=== PATIENT | female | born 1985 | race Caucasian/White ===

== ENCOUNTER 2023-05-28 13:48 | Outpatient (OUT) | payer OTHER, SELFPAY ==
--- NOTE | 2023-05-28 13:51 | US_ITS ---
The [address] [address] Patient Name: VICKY CEJA MRN: [id number] date: 1985 Sex: F Assigned Patient Location: US Current Patient Location: US Accession/Order Number: [id number] Exam Date: 05/28/2023 13:51 Report Date: 05/28/2023 15:54 At the request of: YEYO GARCIA Procedure: US OB transvaginal EXAMINATION: US OB transvaginal HISTORY: MISSED MENSES COMPARISON: No relevant comparison available. FINDINGS: GESTATIONAL SAC: Present and normal appearing. YOLK SAC: Present and normal appearing. POLE: Present and normal appearing. CARDIAC: Present. UTERUS: Normal size and appearance. OVARIES: Right: Normal. Left: Prominent simple appearing cyst, 3.8 cm in diameter. CERVIX: 4.7 cm in length and closed. CUL-DE-SAC: Normal. OTHER: None. AGE BY LMP: 9 weeks 2 days PATY BY LMP: 12/29/2023 AGE BY US CRL: 8 weeks 6 days PATY BY US CRL: 01/01/2024 US/US OB transvaginal IMPRESSION: 1. Single live intrauterine . Electronically authenticated by: FABIEN ANAND Date: 05/28/2023 15:54
== END 2023-05-28 13:49 | disposition home or self-care (01) ==
LOC: US 13:49
PROVIDERS: Visit Provider Obstetrics & Gynecology
DX: Z34.91 Encounter for supervision of normal pregnancy, unspecified, first trimester (principal); N92.6 Irregular menstruation, unspecified
CPT/HCPCS: 76817

== ENCOUNTER 2023-06-22 13:49 | Outpatient (OUT) | payer OTHER, SELFPAY ==
[2023-06-22 14:41] LABS: Estimated Average Glucose 97 mg/dL
[2023-06-22 14:44] LABS: Basophils Percent Auto 0.3 % (0.2-2.0); Eosinophils Absolute Auto 0.2 10^3/uL (0.0-0.7); Eosinophils Percent Auto 1.5 % (0.9-7.0); Hematocrit 35.8 % (36.0-48.0); Hemoglobin 12.6 g/dL (12.0-16.0); Immature Granulocytes Abs Auto 0.02 10^3/uL (0.00-0.03); Immature Granulocytes Pct Auto 0.2 % (0.0-0.5); Lymphocytes Percent Auto 19.4 % (20.5-60.0); Mean Corpuscular HGB Conc 35.2 g/dL (29.9-35.2); Mean Corpuscular Volume 88.2 fL (81.0-99.0); Mean Platelet Volume 11.1 fL (9.5-13.5); Monocytes Absolute Auto 0.7 10^3/uL (0.3-0.8); Monocytes Percent Auto 6.3 % (1.7-12.0); Neutrophils Absolute Auto 7.5 10^3/uL (1.4-6.5); Neutrophils Percent Auto 72.3 % (43.0-75.0); Platelet Count 284 10^3/uL (150-450); Red Blood Count 4.06 10^6/uL (4.20-5.40); Red Cell Distribution Width 13.1 % (11.0-15.0); White Blood Count 10.4 10^3/uL (4.0-11.0)
[2023-06-22 14:54] LABS: Thyroid Stimulating Hormone 0.407 uIU/mL (0.358-3.740)
[2023-06-23 08:10] LABS: HBsAg Screen Negative (Negative); HIV Ab/p24 Ag Screen Non Reactive (Non Reactive); Rubella Antibodies, IgG 3.39 index (Immune >0.99)
[2023-06-23 10:10] LABS: Rapid Plasma Reagin, Quant Non Reactive titer (NonRea<1:1)
[2023-06-23 11:09] LABS: HCV Ab Non Reactive (Non Reactive)
== END 2023-06-22 13:50 | disposition home or self-care (01) ==
LOC: LAB 13:49
PROVIDERS: Visit Provider Obstetrics & Gynecology
DX: N91.2 Amenorrhea, unspecified (principal)
CPT/HCPCS: 36415; 83036; 84443; 85025; 86592; 86762; 86803; 86850; 86900; 86901; 87086; 87340; 87389

== ENCOUNTER 2023-07-27 21:06 | Outpatient (REF) | payer OTHER, SELFPAY ==
[2023-08-01 14:08] LABS: Age Gdln ACOG Testing Note (.); HPV Aptima Negative (Negative); IGP, Aptima HPV, rfx 16/18,45 Note (.)
== END 2023-07-27 21:07 | disposition home or self-care (01) ==
LOC: LAB 21:06
PROVIDERS: Visit Provider Physician Assistant
DX: Z01.419 Encounter for gynecological examination (general) (routine) without abnormal findings (principal)
CPT/HCPCS: 87624; G0145

== ENCOUNTER 2023-08-11 13:30 | Outpatient (OUT) | payer OTHER, SELFPAY ==
--- NOTE | 2023-08-11 13:33 | US_ITS ---
[address] [address] Patient Name: VICKY CEJA MRN: [id number] date: 1985 Sex: F Assigned Patient Location: US Current Patient Location: Accession/Order Number: [id number] Exam Date: 08/11/2023 13:34 Report Date: 08/12/2023 00:38 At the request of: YEYO GARCIA Procedure: US OB anatomy EXAMINATION: US OB anatomy, US OB cervical length HISTORY: ANATOMY COMPARISON: Ultrasound OB transvaginal 05/28/2023 TECHNIQUE: Transabdominal sonographic examination was performed for obstetrical and evaluation. FINDINGS: Number: 1 Heart Rate: Present; not recorded Amniotic Fluid Volume: Subjectively normal Placental Location: POSTERIOR with lower margin 5.4 cm from os. Cervix Length: 4.5 cm, closed. ANATOMY: Normal Structures -cerebellum, choroid plexus, cisterna magna, lateral cerebral ventricles, orbits, midline falx, hard palate, four-chamber heart, RVOT, LVOT, stomach, kidneys, bladder, umbilical cord insertion into abdomen, three-vessel cord, cervical spine, thoracic spine, lumbar spine, sacral spine, right upper extremity, left upper extremity, right lower extremity, left lower extremity. SUBOPTIMALLY SEEN: None ABNORMALITIES: Bilateral choroid plexus cysts, 10 mm and 7 mm respectively. BIOMETRY: BPD: 4.5 cm 19 weeks 4 days HC: 16.9 cm 19 weeks 4 days AC: 15.1 cm 20 weeks 2 days FL: 3.3 cm 20 weeks 3 days EFW:344.3 grams; 63% FL/AC: 22.1 FL/BPD: 74.1 HC/AC: 1.1 GESTATIONAL AGE: Age by EDC: 20 weeks 0 days PATY by EDC: 12/29/2023 Age by current US: 20 weeks 0 days PATY by current US: 12/29/2023 US/US OB anatomy IMPRESSION: 1. Single live intrauterine with growth detailed above. 2. Bilateral choroid plexus cysts, 10 mm and 7 mm. No additional anatomic abnormalities demonstrated. Electronically authenticated by: FABIEN ANAND Date: 08/12/2023 00:38
--- NOTE | 2023-08-11 13:33 | US_ITS ---
[address] [address] Patient Name: VICKY CEJA MRN: [id number] date: 1985 Sex: F Assigned Patient Location: US Current Patient Location: Accession/Order Number: [id number] Exam Date: 08/11/2023 13:34 Report Date: 08/12/2023 00:38 At the request of: YEYO GARCIA Procedure: US OB cervical length EXAMINATION: US OB anatomy, US OB cervical length HISTORY: ANATOMY COMPARISON: Ultrasound OB transvaginal 05/28/2023 TECHNIQUE: Transabdominal sonographic examination was performed for obstetrical and evaluation. FINDINGS: Number: 1 Heart Rate: Present; not recorded Amniotic Fluid Volume: Subjectively normal Placental Location: POSTERIOR with lower margin 5.4 cm from os. Cervix Length: 4.5 cm, closed. ANATOMY: Normal Structures -cerebellum, choroid plexus, cisterna magna, lateral cerebral ventricles, orbits, midline falx, hard palate, four-chamber heart, RVOT, LVOT, stomach, kidneys, bladder, umbilical cord insertion into abdomen, three-vessel cord, cervical spine, thoracic spine, lumbar spine, sacral spine, right upper extremity, left upper extremity, right lower extremity, left lower extremity. SUBOPTIMALLY SEEN: None ABNORMALITIES: Bilateral choroid plexus cysts, 10 mm and 7 mm respectively. BIOMETRY: BPD: 4.5 cm 19 weeks 4 days HC: 16.9 cm 19 weeks 4 days AC: 15.1 cm 20 weeks 2 days FL: 3.3 cm 20 weeks 3 days EFW:344.3 grams; 63% FL/AC: 22.1 FL/BPD: 74.1 HC/AC: 1.1 GESTATIONAL AGE: Age by EDC: 20 weeks 0 days PATY by EDC: 12/29/2023 Age by current US: 20 weeks 0 days PATY by current US: 12/29/2023 US/US OB cervical length IMPRESSION: 1. Single live intrauterine with growth detailed above. 2. Bilateral choroid plexus cysts, 10 mm and 7 mm. No additional anatomic abnormalities demonstrated. Electronically authenticated by: FABIEN ANAND Date: 08/12/2023 00:38
== END 2023-08-11 13:31 | disposition home or self-care (01) ==
LOC: US 13:30
PROVIDERS: Visit Provider Obstetrics & Gynecology
DX: Z36.89 Encounter for other specified antenatal screening (principal); Z3A.20 20 weeks gestation of pregnancy
CPT/HCPCS: 76805; 76817

== ENCOUNTER 2023-09-18 08:16 | Outpatient (OUT) | payer OTHER, SELFPAY ==
--- OUTSIDE RECORDS SUMMARY | 2023-09-18 08:18 | XMS_ITS | CCD ---
Author Name Unknown Address [facility] [address] [place] [address] Organization [facility] Care Team Providers Care Auction Block Clerk Name Role Phone AnnaAnkit Unavailable DR GURVINDER WILLS Primary Care Unavailable DR YEYO GARCIA Attending Unavailable DR YEYO GARCIA Consulting Unavailable DR YEYO GARCIA Admitting Unavailable Fredis Hernandes Attending Unavailab Fredis Hahn Admitting Unavailab Gurvinder Conde Primary Care Unavailable RONI MORAN Attending Unavailable RONI MORAN Attending Unavailable YEYO GARCIA Attending Unavailable Medications Current Medications Medication Drug Class(es) Dates Sig (Normalized) Sig (Original) FLUoxetine 40 mg oral capsule (3 sources) Serotonin Reuptake Inhibitor take 2 capsules by mouth every twenty-four hours FLUoxetine HCl 40 MG 2 capsule Orally Once a day for 90 days Active Hair Skin & Nails Gummies (3 sources) Hair Skin & Nail s Gummies Active QUEtiapine 25 mg oral tablet (2 sources) Atypical Antipsychotic take 1 tablet by mouth every twenty-four hours QUEtiapine Fumarate 25 MG 1 tablet at bedtime Orally Once a day for 90 day(s) Active Vitamin D3 (3 sources) Vitamin D3 Activ e Completed/Discontinued Medications Medication Drug Class(es) Dates Sig (Normalized) Sig (Original) 12 hr buPROPion hydrochloride 100 mg extended release oral tablet (3 sources) Aminoketone take 1 tablet by mouth every twenty-four hours Wellbutrin SR 100 MG 1 tablet in the morning Orally Once a day for 30 days Not-Taking Triamcinolone (2 sources) Corticosteroid Start: 01-09-2021 KENALOG - 10 mg January, 40 mg Problems Problem Classification Problem Date Documented Date Episodic/Chronic Anxiety disorders (3 sources) Obsessive-compulsive disorder; Translations: [Obsessive-compulsive disorder, unspecified] Chronic Immunizations and screening for infectious disease (1 source) Encounter for screening for human papillomavirus (HPV); Translations: [ENC SCREENING HUMAN PAPILLOMAVIRUS] Onset: 05-18-2022 Episodic Mood disorders (3 sources) Severe recurrent major depression without psychotic features; Translations: [Major depressive disorder, recurrent severe without psychotic features] Chronic Other screening for suspected conditions (not mental disorders or infectious disease) (4 sources) Encounter for screening for malignant neoplasm of cervix; Translations: [ENC SCREENING MALIG NEOPLASM CERV] Onset: 05-14-2022 Episodic Results Test Name Value Interpretation Reference Range Facil ity PAP ACOG PANEL 2: 30 to 65on 05-20-2022 . . Normal [facility] Comment on above: Result Comment: Performed at: WB Performed By: #### [id number] #### [facility] [address] [address] [address] Beth Gutierrez Age Gdln ACOG Testing 30-65 [facility] Comment on above: Performed By: #### [id number] #### [facility] [address] [address] [address] Beth Gutierrez DIAGNOSIS: Comment Normal [facility] Comment on above: Result Comment: NEGATIVE FOR INTRAEPITHE LIAL LESION OR MALIGNANCY. Performed at: WB Performed By: #### [id number] #### [facility] [address] [address] [address] Beth Gutierrez HPV Aptima Negative Normal [facility] Comment on above: Result Comment: This nucleic acid amplif ication test detects fourteen high-risk HPV types (16,18,31,33,35,39,45,51,52,56,58,59,66,68) without differentiation. Performed at: =G Performed By: #### [id number] #### [facility] [address] [address] [address] Beth Gutierrez Methodology: Comment [facility] Comment on above: Result Comment: This liquid based ThinPr ep(R) pap test was screened with the use of an image guided system. Performed at: WB Performed By: #### [id number] #### [facility] [address] [address] [address] Beth Gutierrez Note: Comment [facility] Comment on above: Result Comment: The Pap smear is a scree gregory test designed to aid in the detection of premalignant and malignant conditions of the uterine cervix. It is not a diagnostic procedure and should not be used as the sole means of detecting cervical cancer. Both false-positive and false-negative reports do occur. . Performed at: WB Performed By: #### [id number] #### [facility] [address] [address] [address] Beth Gutierrez Performed by: Comment Normal [facility] Comment on above: Result Comment: Charmaine Lomas [employer] nologist (ASCP) Performed at: WB Performed By: #### [id number] #### [facility] [address] [address] [address] Beth Gutierrez Specimen adequacy: Comment Normal [facility] Comment on above: Result Comment: Satisfactory for evaluat ion. No endocervical component is identified. Performed at: WB Performed By: #### [id number] #### [facility] [address] [address] [address] Beth Gutierrez XR Hand Complete Left*on XR Hand Complete Left* HISTORY: Pain x 2 weeks FINDINGS: Bone mineralization is normal for this age. No acute fracture, dislocation or significant arthritic changes are seen. No significant joint space effusion is present. Soft tissues are without abnormal calcifications or radiopaque foreign body. No active erosive changes are identified. IMPRESSION: Minimal arthritis, no erosive changes or fracture. Report reported and signed by Bernard Cheng on 05/20/2022 1222 Normal [facility] [employer] Mechanical [employer] Encounters Encounter Date Encounter Type Care Provider Facility Start: 09-09-2023 End: 09-09-2023 ambulatory RONI MORAN Not Available Start: 08-11-2023 End: 08-11-2023 ambulatory YEYO GARCIA Not Available Start: 07-27-2023 End: 07-27-2023 ambulatory RONI MORAN Not Available Start: 02-27-2023 ambulatory Fredis Graham acility:[facility] Start: 05-14-2022 End: 05-14-[address] GURVINDER WILLS Facility: Start: 04-16-2022 End: 04-16-2022 ambulatory Ankit Anna Other [facility] Other Start: 04-16-2022 Telephone encounter Ankit Anna [facility] Start: 03-05-2022 End: 03-05-2022 ambulatory Ankit Anna Other [facility] Other Start: 03-05-2022 Telephone encounter Ankit Anna [facility] Start: 09-30-2021 End: 09-30-2021 ambulatory Ankit Anna Other [facility] Other Start: 09-30-2021 Telephone encounter Ankit Anna [facility] Payers Date Payer Category Payer Self-pay 1985 Unknown [id number] [id number] [id number] 1985 Unknown [id number] 1985 Unknown [id number] 1985 Unknown [id number] 1957 Private Health Insurance [id number] Unknown [id number] .[id number] Social History Date Type Detail Facility Unknown if ever smoked [facility] Other Sex Assigned At Sex Assigned At Bir th [facility] Other Evaluation note Note Date & Type Note Facility Evaluation note No Information [facility] Other History general Narrative - Reported Note Date & Type Note Facility History general Narrative - Reported Type Medical History Anxiety [facility] Other Summary Purpose Family History No Family History Records FoundNo Family History Records FoundNo Family History Records FoundNo Family History Records Found Advance Directives No Advanced Directives Records FoundNo Advanced Directives Records FoundNo Advanced Directives Records FoundNo Advanced Directives Records Found Additional Source Comments REASON FOR VISIT (unrecogniz ed section and content) same day cancellationreferra l informationupdate INFORMATION SOURCE (unrecogn ized section and content) DATE CREATED AUTHOR 05/20/2022 [facility] DATE CREATED AUTHOR AUTHOR'S ORGANIZ ATION 05/21/2022 [facility]ical Specialist DATE CREATED AUTHOR AUTHOR'S ORGANIZ ATION 09/06/2023 [facility] DATE CREATED AUTHOR AUTHOR'S ORGANIZ ATION 09/10/2023 [facility] d[facility] Specialists [facility] FOR RECORDS PERTAINING TO PATIENTS WHO ARE OR HAVE BEEN ENROLLED IN A CHEMICAL DEPENDENCY/SUBSTANCEABUSE PROGRAM, SOME INFORMATION MAY BE OMITTED. This clinical summary was aggregated from multiple sources. Caution should be exercised in using it in the provision of clinical care. This summary normalizes information from multiple sources, and as a consequence, information in this document may materially change the coding, format and clinical context of patient data. In addition, data may be omitted in some cases. CLINICAL DECISIONS SHOULD BE BASED ON THE PRIMARY CLINICAL RECORDS. [facility] [employer] provides no warranty or guarantee of the accuracy or completeness of information in this document.
[2023-09-18 09:43] LABS: Basophils Percent Auto 0.4 % (0.2-2.0); Eosinophils Absolute Auto 0.2 10^3/uL (0.0-0.7); Eosinophils Percent Auto 1.9 % (0.9-7.0); Hematocrit 33.3 % (36.0-48.0); Hemoglobin 11.1 g/dL (12.0-16.0); Immature Granulocytes Abs Auto 0.04 10^3/uL (0.00-0.03); Immature Granulocytes Pct Auto 0.4 % (0.0-0.5); Lymphocytes Absolute Auto 1.4 10^3/uL (1.2-3.8); Lymphocytes Percent Auto 12.9 % (20.5-60.0); Mean Corpuscular HGB Conc 33.3 g/dL (29.9-35.2); Mean Corpuscular Hemoglobin 29.9 pg (26.7-34.0); Mean Corpuscular Volume 89.8 fL (81.0-99.0); Mean Platelet Volume 11.3 fL (9.5-13.5); Monocytes Absolute Auto 0.6 10^3/uL (0.3-0.8); Monocytes Percent Auto 5.4 % (1.7-12.0); Neutrophils Absolute Auto 8.8 10^3/uL (1.4-6.5); Platelet Count 259 10^3/uL (150-450); Red Blood Count 3.71 10^6/uL (4.20-5.40); Red Cell Distribution Width 13.1 % (11.0-15.0); White Blood Count 11.1 10^3/uL (4.0-11.0)
[2023-09-18 11:28] LABS: Glucose 1 Hour 164 mg/dL
== END 2023-09-18 08:17 | disposition home or self-care (01) ==
PROVIDERS: PCP Family Medicine; Visit Provider Physician Assistant
DX: Z13.1 Encounter for screening for diabetes mellitus (principal)
CPT/HCPCS: 36415; 82950; 85025

== ENCOUNTER 2023-09-23 08:31 | Outpatient (OUT) | payer OTHER, SELFPAY ==
--- OUTSIDE RECORDS SUMMARY | 2023-09-23 08:38 | XMS_ITS | CCD ---
Author Name Unknown Address [facility] [address] [place] [address] Organization [facility] Care Team Providers Care Junior Copywriter Name Role Phone AnnaBritanyAnkit Unavailable DR GURVINDER WILLS Primary Care Unavailable DR YEYO GARCIA Attending Unavailable JOSE, DR ORONA Consulting Unavailable DR YEYO GARCIA Admitting Unavailable [...] 30 to 65on 05-20-2022 . . Normal [facility] Comment on above: Result Comment: Performed at: WB Performed By: #### [id number] #### [facility] [address] [place] [address] Dr. Beth Gutierrez Age Gdln ACOG Testing 30-65 [facility] Comment on above: Performed By: #### [id number] #### [facility] [address] [address] [address] Beth Gutierrez DIAGNOSIS: Comment Normal [facility] Comment on above: Result Comment: NEGATIVE FOR INTRAEPITHE LIAL LESION OR MALIGNANCY. Performed at: WB Performed By: #### [id number] #### [facility] [address] [address] [address] Beth Gutierrez HPV Aptima Negative Normal [facility] Comment on above: Result Comment: This nucleic acid amplif ication test detects fourteen high-risk HPV types (16,18,31,33,35,39,45,51,52,56,58,59,66,68) without differentiation. Performed at: =G Performed By: #### [id number] #### [facility] [address] [address] [address] Beth Gutierrez Methodology: Comment [facility] Comment on above: Result Comment: This liquid based ThinPr ep(R) pap test was screened with the use of an image guided system. Performed at: WB Performed By: #### [id number] #### [facility] [address] [address] [address] Beth Gutierrez Note: Comment Normal [facility] Comment on above: Result Comment: [...] Performed at: WB Performed By: #### [id number] #### [facility] [address] [address] [address] Beth Gutierrez Performed by: Comment Normal [facility] Comment on above: Result Comment: Charmaine Lomas [employer] nologist (ASCP) Performed at: WB Performed By: #### [id number] #### [facility] [address] [address] [address] Beth Gutierrez Specimen adequacy: Comment Normal [facility] Comment on above: Result Comment: Satisfactory for evaluat ion. No endocervical component is identified. Performed at: WB Performed By: #### [id number] #### [facility] [address] [address] [address] Beth Gutierrez XR Hand Complete Left*on [...] by Bernard Cheng on 05/20/2022 1222 Normal [facility] Psychiatric Registered Nurse Encounters Encounter Date Encounter Type Care Provider Facility Start: 09-09-2023 End: 09-09-2023 ambulatory RONI MORAN Not Available Start: 08-11-2023 End: 08-11-2023 ambulatory YEYO GARCIA Not Available Start: 07-27-2023 End: 07-27-2023 ambulatory RONI MORAN Not Available Start: 02-27-2023 ambulatory Fredis Graham acility:[facility] Start: 05-14-2022 End: 05-14-[address] GURVINDER WILLS Facility: Start: 04-16-2022 End: 04-16-2022 ambulatory Ankit Anna Other [facility] Other Start: 04-16-2022 Telephone encounter Ankit Anna [facility] Start: 03-05-2022 End: 03-05-2022 ambulatory Ankit Anna Other [facility] Other Start: 03-05-2022 Telephone encounter Ankit Anna [facility] Start: 09-30-2021 End: 09-30-2021 ambulatory Ankit Anna Other [facility] Other Start: 09-30-2021 Telephone encounter Ankit Anna [facility] Payers Date Payer Category Payer Self-pay 1985 Unknown [id number] [id number] [id number] 1985 Unknown [id number] 1985 Unknown [id number] 1985 Unknown [id number] 1957 Private Health Insurance [id number] Unknown [id number] [id number] Social History Date Type Detail Facility Unknown if ever smoked [facility] Other Sex Assigned At Sex Assigned At Bir th [facility] Other Evaluation note Note Date & Type Note Facility Evaluation note No Information 5 examples Other History general Narrative - Reported Note Date & Type Note Facility History general Narrative - Reported Type Medical History Anxiety [facility] Other Summary Purpose Family History No Family [...] and content) DATE CREATED AUTHOR 05/20/2022 [facility] pital DATE CREATED AUTHOR AUTHOR'S ORGANIZ ATION 05/21/2022 [facility] dical Specialist DATE CREATED AUTHOR AUTHOR'S ORGANIZ ATION 09/06/2023 [facility] DATE CREATED AUTHOR AUTHOR'S ORGANIZ ATION 09/10/2023 [facility] dical Specialists [facility] FOR RECORDS PERTAINING TO PATIENTS WHO ARE [...] BE BASED ON THE PRIMARY CLINICAL RECORDS. [facility] [employer] provides no warranty or guarantee of the accuracy or completeness of information in this document.
[2023-09-23 08:56] LABS: Glucose Fasting 90 mg/dL (74-106)
[2023-09-23 10:41] LABS: Glucose 1 Hour 196 mg/dL
[2023-09-23 10:57] LABS: Glucose 2 Hour 140 mg/dL (<155)
[2023-09-23 12:06] LABS: Glucose 3 Hour 59 mg/dL (<140)
== END 2023-09-23 08:32 | disposition home or self-care (01) ==
LOC: LAB 08:31
PROVIDERS: PCP Family Medicine; Visit Provider Physician Assistant
DX: R73.09 Other abnormal glucose (principal)
CPT/HCPCS: 36415; 82951; 82952

== ENCOUNTER 2023-09-30 10:54 | Outpatient (OUT) | payer OTHER, SELFPAY ==
--- NOTE | 2023-09-30 11:00 | US_ITS ---
The [address] [address] Patient Name: VICKY CEJA MRN: [id number] date: 1985 Sex: F Assigned Patient Location: [facility] Current Patient Location: [facility] Accession/Order Number: [id number] Exam Date: 09/30/2023 11:01 Report Date: 09/30/2023 11:39 At the request of: YEYO GARCIA Procedure: US OB follow up EXAMINATION: US OB follow up HISTORY: FOLLOW UP CHOROID PLEXUS CYSTS COMPARISON: 08/11/2024 FINDINGS: position: Cephalic presentation, longitudinal lie Heart rate: 141 bpm Anatomy: Previously identified choroid plexus cysts are not seen on the current exam. Clinical age: 27 weeks 1 day Clinical PATY: 12/29/2023 US/US OB follow up IMPRESSION: Interval resolution of previously identified choroid plexus cysts Electronically authenticated by: WILLEM ANGUIANO Date: 09/30/2023 11:39
--- OUTSIDE RECORDS SUMMARY | 2023-09-30 11:08 | XMS_ITS | CCD ---
Author Name Unknown Address [facility] [address] [place] [address] Organization [facility] Care Team Providers Care Casket Coverer Name Role Phone AnnaBritanyAnkit Unavailable DR GURVINDER WILLS Primary Care Unavailable JOSE, DR ORONA Attending Unavailable JOSE, DR ORONA Consulting Unavailable JOSE, DR ORONA Admitting Unavailable RONI MORAN Attending Unavailable RONI MORAN Attending Unavailable YEYO GARCIA Attending Unavailable Fredis Hernandes Attending Unavailab Fredis Hahn Admitting Unavailab Gurvinder Conde Primary Care Unavailable Medications Current Medications Medication Drug Class(es) [...] 30 to 65on 05-20-2022 . . Normal [facility] Comment on above: Result Comment: Performed at: WB Performed By: #### [id number] #### [facility] [address] [place] [address] Dr. Beth Gutierrez Age Gdln ACOG Testing 30-65 [facility] Comment on above: Performed By: #### [id number] #### [facility] [address] [address] [address] Beth Gutierrez DIAGNOSIS: Comment Normal [facility] Comment on above: Result Comment: NEGATIVE FOR INTRAEPITHE LIAL LESION OR MALIGNANCY. Performed at: WB Performed By: #### [id number] #### [facility] [address] [address] [address] Beth Gutierrez HPV Aptima Negative Normal [facility] Comment on above: Result Comment: This nucleic acid amplif ication test detects fourteen high-risk HPV types (16,18,31,33,35,39,45,51,52,56,58,59,66,68) without differentiation. Performed at: =G Performed By: #### [id number] #### [facility] [address] [address] [address] Beth Gutierrez Methodology: Comment [facility] Comment on above: Result Comment: This liquid based ThinPr ep(R) pap test was screened with the use of an image guided system. Performed at: WB Performed By: #### [id number] #### [facility] [address] [address] [address] Beth Gutierrez Note: Comment Normal [facility] Comment on above: Result Comment: The Pap smear is a scree gregory test designed to aid in the detection of premalignant and malignant conditions of the uterine cervix. It is not a diagnostic procedure and should not be used as the sole means of detecting cervical cancer. Both false-positive and false-negative reports do occur. . Performed at: WB Performed By: #### [id number] #### [facility] [address] [address] [address] Beth Gutierrez Performed by: Comment Normal [facility] Comment on above: Result Comment: Charmaine Lomas [employer] nologist (ASCP) Performed at: WB Performed By: #### [id number] #### [facility] [address] [address] [address] Beth Gutierrez Specimen adequacy: Comment Normal [facility] Comment on above: Result Comment: Satisfactory for evaluat ion. No endocervical component is identified. Performed at: WB Performed By: #### [id number] #### [facility] [address] [address] [address] Beth Gutierrez XR Hand Complete Left*on [...] by Bernard Cheng on 05/20/2022 1222 Normal [facility] Encounters Encounter Date Encounter Type Care Provider Facility Start: 09-09-2023 End: 09-09-2023 ambulatory RONI MORAN Not Available Start: 08-11-2023 End: 08-11-2023 ambulatory YEYO GARCIA Not Available Start: 07-27-2023 End: 07-27-2023 ambulatory RONI MORAN Not Available Start: 07-06-2023 ambulatory Fredis Graham acility:[facility] Start: 05-14-2022 End: 05-14-[address] GURVINDER WILLS Facility: Start: 04-16-2022 End: 04-16-2022 ambulatory Ankit Anna Other [employer] Other Start: 04-16-2022 Telephone encounter Ankit Anna [facility] Start: 03-05-2022 End: 03-05-2022 ambulatory Ankit Anna Other [employer] Other Start: 03-05-2022 Telephone encounter Ankit Anna [facility] Start: 09-30-2021 End: 09-30-2021 ambulatory Ankit Anna Other [employer] Other Start: 09-30-2021 Telephone encounter Ankit Anna [facility] Payers Date Payer Category Payer Self-pay 1987 Unknown [id number] 2.16.84 [id number] 1987 Unknown [id number] 1987 Unknown [id number] 1987 Unknown [id number] 1959 Private Health Insurance [id number] Unknown [id number] 2.16.8 [id number] Social History Date Type Detail Facility Unknown if ever smoked [employer] Other Sex Assigned At Sex Assigned At Bir th [employer] Other Evaluation note Note Date & Type Note Facility Evaluation note No Information [employer] Other History general Narrative - Reported Note Date & Type Note Facility History general Narrative - Reported Type Medical History Anxiety [employer] Other Summary Purpose Family History No Family [...] and content) DATE CREATED AUTHOR 05/20/2022 [facility] DATE CREATED AUTHOR AUTHOR'S ORGANIZ ATION 05/21/2022 [facility] dical Specialist DATE CREATED AUTHOR AUTHOR'S ORGANIZ ATION 09/10/2023 [facility] EPIC DATE CREATED AUTHOR AUTHOR'S ORGANIZ ATION 09/26/2023 [facility] FOR RECORDS PERTAINING TO PATIENTS WHO ARE [...] BE BASED ON THE PRIMARY CLINICAL RECORDS. [facility]. provides no warranty or guarantee of the accuracy or completeness of information in this document.
== END 2023-09-30 10:55 | disposition home or self-care (01) ==
LOC: NOMS 10:54
PROVIDERS: PCP Family Medicine; Visit Provider Obstetrics & Gynecology
DX: Z36.2 Encounter for other antenatal screening follow-up (principal)
CPT/HCPCS: 76816

== ENCOUNTER 2023-10-10 20:02 | Observation (INO) | payer OTHER, SELFPAY ==
[2023-10-10] VITALS (12 sets, daily range): BP systolic 89–138; BP diastolic 49–72; PULSE 90–111; TEMP 36.7
--- OUTSIDE RECORDS SUMMARY | 2023-10-10 20:05 | XMS_ITS | CCD ---
Author Name Unknown Address [address] [place] [address] [address] [place] [address] Organization [facility] Care Team Providers Care Fryer Operator Name Role Phone AnnaBritanyAnkit Unavailable DR GURVINDER WILLS Primary Care Unavailable DR YEYO GARCIA Attending Unavailable DR YEYO GARCIA Consulting Unavailable DR YEYO GARCIA Admitting Unavailable Fredis Hernandes Attending Unavailab Fredis Hahn Admitting Unavailab Gurvinder Conde Primary Care Unavailable RONI MORAN Attending Unavailable YEYO GARCIA Attending Unavailable RONI MORAN Attending Unavailable YEYO [...] 30 to 65on 05-20-2022 . . Normal [facility] Comment on above: Result Comment: Performed at: WB Performed By: #### [id number] #### [facility] [address] [address] [address] Beth Gutierrez Age Gdln ACOG Testing 30-65 Normal [facility] Comment on above: Performed By: #### [id number] #### [facility] [address] [address] [address] Beth Gutierrez DIAGNOSIS: Comment Normal [facility] Comment on above: Result Comment: NEGATIVE FOR INTRAEPITHE LIAL LESION OR MALIGNANCY. Performed at: WB Performed By: #### [id number] #### [facility] [address] [address] [address] Beth Gutierrez HPV Aptima Negative Normal Negative [facility] Comment on above: Result Comment: This nucleic acid amplif ication test detects fourteen high-risk HPV types (16,18,31,33,35,39,45,51,52,56,58,59,66,68) without differentiation. Performed at: =G Performed By: #### [id number] #### [facility] [address] [address] [address] Beth Gutierrez Methodology: Comment Normal [facility] Comment on above: Result Comment: This liquid based ThinPr ep(R) pap test was screened with the use of an image guided system. Performed at: WB Performed By: #### [id number] #### [facility] [address] [address] [address] Beth Gutierrez Note: Comment Normal [facility] Comment on above: Result Comment: The Pap smear is a scree gregory test designed to aid in the detection of premalignant and malignant conditions of the uterine cervix. It is not a diagnostic procedure and should not be used as the sole means of detecting cervical cancer. Both false-positive and false-negative reports do occur. . Performed at: WB Performed By: #### [id number] #### [facility] [address] [address] [address] Beth Gutierrez Performed by: Comment Normal [facility] Comment on above: Result Comment: Charmaine Lomas [employer] nologist (ASCP) Performed at: WB Performed By: #### [id number] #### [facility] [address] [place] [address] Dr. Beth Gutierrez Specimen adequacy: Comment Normal [facility] Comment on above: Result Comment: Satisfactory for evaluat ion. No endocervical component is identified. Performed at: WB Performed By: #### [id number] #### [facility] [address] [place] [address] Dr. Beth Gutierrez XR Hand Complete Left*on [...] by Bernard Cheng on 05/20/2022 1222 Normal [facility] Encounters Encounter Date Encounter Type Care Provider Facility Start: 10-07-2023 End: 10-07-2023 ambulatory YEYO JOSE Not Available Start: 09-09-2023 End: 09-09-2023 ambulatory RONI MORAN Not Available Start: 08-11-2023 End: 08-11-2023 ambulatory YEYO JOSE Not Available Start: 07-27-2023 End: 07-27-2023 ambulatory RONI MORAN Not Available Start: 07-06-2023 ambulatory Fredis Graham acility:[facility] Start: 05-14-2022 End: 05-14-[address] GURVINDER WILLS Facility:[facility] Start: 04-16-2022 End: 04-16-2022 ambulatory Ankit Anna Other [employer] Other Start: 04-16-2022 Telephone encounter Ankit Anna [facility] Start: 03-05-2022 End: 03-05-2022 ambulatory Ankit Anna Other [employer] Other Start: 03-05-2022 Telephone encounter Ankit Anna [facility] Start: 09-30-2021 End: 09-30-2021 ambulatory Ankit Anna Other [employer] Other Start: 09-30-2021 Telephone encounter Ankit Anna [facility] Payers Date Payer Category Payer Self-pay 1987 Unknown [id number] 2.16.84 [id number] 1985 Unknown [id number] 2.16.84 [id number] 1987 Unknown [id number] [id number] 1987 Unknown [id number] [id number] 1987 Unknown [id number] [id number] [id number] 1959 Private Health Insurance [id number] Unknown [id number] 2.16.8 [id number] Social History Date Type Detail Facility Unknown if ever smoked [employer] Other Sex Assigned At Sex Assigned At Bir th [employer] Other Evaluation note Note Date & Type Note Facility Evaluation note No Information [facility] Other History general Narrative - Reported Note Date & Type Note Facility History general Narrative - Reported Type Medical History Anxiety [facility] [employer] Other Summary Purpose Family History No Family [...] and content) DATE CREATED AUTHOR 05/20/2022 [facility] DATE CREATED AUTHOR AUTHOR'S ORGANIZ ATION 05/21/2022 [facility] dical Specialist DATE CREATED AUTHOR AUTHOR'S ORGANIZ ATION 10/07/2023 [facility] DATE CREATED AUTHOR AUTHOR'S ORGANIZ ATION 10/08/2023 [facility] d[facility] Specialists [facility] FOR RECORDS PERTAINING TO PATIENTS WHO ARE [...] BE BASED ON THE PRIMARY CLINICAL RECORDS. [facility] [employer] [facility]. provides no warranty or guarantee of the accuracy or completeness of information in this document.
[2023-10-10 20:28] LABS: Amnisure POSITIVE (NEGATIVE)
[2023-10-10 20:32] LABS: Bilirubin Urine NEGATIVE (NEGATIVE); Blood Urine MODERATE (NEGATIVE); Clarity Urine CLEAR (CLEAR); Color Urine YELLOW (YELLOW); Glucose Urine UA NEGATIVE (NEGATIVE); Ketones Urine NEGATIVE (NEGATIVE); Leukocyte Esterase Urine NEGATIVE (NEGATIVE); Nitrite Urine NEGATIVE (NEGATIVE); Protein Urine TRACE mg/dL (NEG/TRACE); Specific Gravity Urine >=1.030 (1.005-1.025); Urobilinogen Urine 0.2 EU/dL (0.2-1.0); pH Urine 6.5 (5.0-9.0)
[2023-10-10 20:52] LABS: Urine Microscopic Indicated YES
[2023-10-10 20:57] LABS: Bacteria Urine NONE SEEN #/HPF (NONE SEEN); Cast Seen? NONE SEEN #/LPF (NONE SEEN); Crystals Seen? None Seen #/HPF (None Seen); Mucus Urine TRACE (NONE SEEN); Squamous Epithelial Cell Urine FEW #/LPF (NONE/RARE)
[2023-10-10] MEDS: 0.9 % SODIUM CHLORIDE 1,000 ML 125 ML IV (20:59)
[2023-10-10] MEDS: CLINDAMYCIN PHOSPHATE/D5W 900 MG/50 ML PIGGYBACK 100 MG IV (21:00)
[2023-10-10] MEDS: BETAMETHASONE ACE/BETAMETHASONE SOD PHOS 30 MG/5 ML 12 MG IM (21:00)
[2023-10-10] MEDS: RHO(D) IMMUNE GLOBULIN 1,500 UNIT SYRINGE 1500 UNIT IM (21:01)
[2023-10-10] MEDS: MAGNESIUM SULFATE IN WATER 40 GM/1,000 ML IV.SOLN IV (22:36)
--- NOTE | 2023-10-10 22:51 | PM.DST ---
Transfer Discharge Sum: Prov Provider Date of admission: 10/10/23 20:02 Primary care physician: RADHA WILLS Admitting clinician: Babita Arevalo Discharging clinician: Babita Arevalo Anticipated date of transfer: 10/10/23 (might be after midnight making it 10/11/23) Receiving physician/facility: Dr. Soares [facility] DS: Diagnosis Discharge Diagnosis (1) History of premature rupture of membranes (PPROM): Assessment and plan: GROSSLY RUPTURED MEMBRANES THIS EVENING. CLEAR. NOT SANDY, CAT I TRACING, CERVIX CLOSED Plan TRANSFERRED TO [facility] WITH LEVEL 3 NURSERY Transfer Discharge Sum: Med Medications Active and Home Medications: Active Medications Betamethasone Acet/Betameth SodPhos (Betamethasone Antoni/Betamethasone Sod Phos 30 Mg/5 Ml) 12 mg IM Q24H [facility] Stop: 10/11/23 20:34 Last Admin: 10/10/23 21:00 Dose: 12 mg Full dose Rhogam Calcium Gluconate (Calcium Gluconate 1,000 Mg/10 Ml Vial) 1,000 mg IVP ONCE PRN PRN Reason: Hypomagnesemia Sodium Chloride (Sodium Chloride 0.9% 1,000 Ml) 1,000 mls @ 125 mls/hr IV .Q8H [facility] Last Admin: 10/10/23 20:59 Dose: 125 mls/hr Sodium Chloride (Sodium Chloride 0.9% 1,000 Ml) 1,000 mls @ 75 mls/hr IV .[id number] [facility] Magnesium Sulfate (Magnesium Sulf 40 G/1,000 Ml) 40 gm in 1,000 mls @ 50 mls/hr IV Q13H [facility] Last Admin: 10/10/23 22:36 Dose: 50 mls/hr Azithromycin 250 mg/ Sodium (Chloride) 250 mls @ 250 mls/hr IV ONCE ONE Stop: 10/10/23 22:59 Transfer Discharge Sum: Hosp Hospital Course Hospital course: uncomplicated, not in labor, s/p PPROM clear fluid, CAT I tracing, cervix closed, baby transverse lie head LUQ, vaginal culture for GBS done Status at Discharge Cognitive capacity at transfer: oriented X three, normal affect, normal understanding, Functional capacity at transfer: independent ambulation Overall status at transfer: other (on bedrest with magnesium sulfate running at 2 gram an hour after 6 gram bolus ) Time Spent with Patient Time attestation: Total time spent providing and/or coordinating transfer services: Total time spent: greater than 30 minutes Exam Constitutional: Vital Signs, click to edit/add: Last Vital Signs Temp 98.0 F 10/10/23 20:15 Pulse 90 10/10/23 22:40 BP 110/61 10/10/23 22:40 Documenting provider has reviewed patient's vital signs: yes Common normals: no apparent distress, oriented x3, no limitations, alert and well nourished General appearance: cooperative, comfortable and well kempt Orientation/consciousness: Yes awake, Yes oriented to person, Yes oriented to place and Yes oriented to time HENMT: Common normals: normocephalic and head/scalp atraumatic Eye: Pupil: PERRL and accommodation reflex normal Neck & C-Spine: Common normals: full ROM and supple Respiratory: Common normals: normal respiratory effort Cardio: Common normals: regular rate and regular rhythm GI: Common normals: Normal to inspection, nondistended, normoactive bowel sounds present, soft to palpation and non-tender : Common normals: no CVA tenderness Extremity: Common normals: normal to inspection, full ROM and no calf tenderness Neuro: Common normals: CN's II-XII intact bilaterally, moves all extremities, no focal motor deficits and no sensory deficits noted Psych: Common normals: mental status grossly normal, thought process normal, cooperative and affect normal Discharge Plan Discharge Disposition: [facility] Condition: Serious Assessment: TRANSFERRED TO [facility] WITH LEVEL 3 NURSERY FOR DELIVERY AT 28.5 WEEKS Activity Restrictions/Additional Instructions: bedrest till delivered Aerospace Physiological Technician/Commercial Airline Pilot Instructions: NA Discharge Location: [facility]
[2023-10-10] MEDS: AZITHROMYCIN 250 MG in 0.9 % SODIUM CHLORIDE 250 ML IV (23:10)
[2023-10-11 00:41] VITALS: BP 112/61; PULSE 103
[2023-10-11 01:41] VITALS: BP 109/59; PULSE 92
[2023-10-11 02:41] VITALS: BP 101/57; PULSE 98
== END 2023-10-11 03:20 | disposition short-term general hospital (02) ==
PROVIDERS: Admitting Provider Obstetrics & Gynecology; PCP Family Medicine; Visit Provider Obstetrics & Gynecology
DX: O42.913 Preterm premature rupture of membranes, unspecified as to length of time between rupture and onset of labor, third trimester (principal); Z3A.28 28 weeks gestation of pregnancy
CPT/HCPCS: 51702; 59025; 81001; 84112; 87081; 96365; 96367; 96372; 96376; G0378; G0379; J0456; J0702; J0736; J2790; J3475

== ENCOUNTER 2024-11-30 18:15 | Outpatient (REF) | payer OTHER, SELFPAY ==
--- OUTSIDE RECORDS SUMMARY | 2024-11-30 18:37 | XMS_ITS | CCD ---
Author Organization [facility] Care Team Providers Care Pewter Fabricator Name Role Phone Ankit Castillo Unavailable DR GURVINDER WILLS Primary Care Unavailable ADELAIDE, DR ORONA Attending Unavailable ADELAIDE, DR ORONA Consulting Unavailable ADELAIDE, DR ORONA Admitting Unavailable Fredis Hernandes Attending Unavailab Fredis Hahn Admitting Unavailab Gurvinder Conde Primary Care Unavailable RONI MORAN Attending Unavailable YEYO BRYSON Attending Unavailable RONI MORAN Attending Unavailable YEYO BRYSON Attending Unavailable RONI MORAN Attending Unavailable YEYO BRYSON Attending Unavailable YEYO BRYSON Attending Unavailable Gurvinder Wills MD Primary Care Provider Gurvinder Wills MD Primary Care Provider [phone] Gurvinder Wills MD Primary Care Provider Allergies Allergy Classification Reported Allergen(s) Allergy Type Date of Onset Reaction(s) Facility (17 sources) Amoxicillin Drug Allergy 06-06-2014 Unknown [facility] Work Phone: Medications Current Medications Medication Drug Class(es) Dates Sig (Normalized) Sig (Original) acetaminophen 500 mg oral tablet (17 sources) Start: 11-10-2023 take 2 tablets by mouth every eight hours acetaminophen (Tylenol) 500 MG tablet Take 1,000 mg by mouth every 8 (eight) hours 11/10/2023 Active docusate sodium 100 mg oral capsule (15 sources) Start: 11-10-2023 take 1 capsule by mouth once daily as needed for constipation docusate sodium (COLACE) 100 mg capsule Indications: constipation Take 1 capsule (100 mg total) by mouth daily as needed for constipation Indications: constipation. 60 capsule 11/10/2023 Active FLUoxetine 40 mg oral capsule (4 sources) Serotonin Reuptake Inhibitor Start: 11-07-2024 End: 12-07-2024 take 1 capsule by mouth once daily FLUoxetine (PROzac) 40 MG capsule Indications: Mood changes Take 1 capsule (40 mg) by mouth Daily 30 capsule 3 11/07/2024 12/07/2024 Active take 2 capsules by m outh every twenty-four hours FLUoxetine HCl 40 MG 2 capsule Orally Once a day for 90 days Active Hair Skin & Nails Gummies (3 sources) Hair Skin & Nail s Gummies Active ibuprofen 800 mg oral tablet (17 sources) Nonsteroidal Anti-inflammatory Drug Start: 11-10-19 take 1 tablet by mouth every eight hours ibuprofen 800 MG tablet Take 800 mg by mouth every 8 (eight) hours 11/10/2023 Active oxyCODONE hydrochloride 5 mg oral tablet (4 sources) Opioid Agonist Start: 11-10-19 End: 11-15-19 take 1 tablet by mouth every six hours as needed for pain oxyCODONE (ROXICODONE) 5 mg immediate release tablet Indications: Postoperative pain Take 1 tablet (5 mg total) by mouth every 6 (six) hours as needed for pain for up to 5 days. Max Daily Amount: 20 mg 20 tablet 0 11/10/2023 11/15/2023 Active MV-Min-Fe Fum-FA-DHA ( 1 PO) (2 sources) MV-Min- Fe Fum-FA-DHA ( 1 PO) Take by mouth. Active QUEtiapine 25 mg oral tablet (2 [...] - 10 mg January, 40 mg Problems Active Problems Problem Classification Problem Date Documented Date [...] SCREENING MALIG NEOPLASM CERV] Onset: 05-14-2022 Episodic Past or Other Problems Problem Classification Problem Date Documented Da te Episodic/Chronic Contraceptive and procreative management (1 source) Sterilization requested; Translations: [Encounter for sterilization] 05-10-2024 Episodic Results Test Name Value Interpretation Reference Range Facil ity PAP ACOG PANEL 2: 30 to 65on 05-20-2022 . . Normal [facility] Comment on above: Result Comment: Performed at: WB Performed By: #### [id number] #### [facility] [address] [address] [address] Beth Gutierrez Age Gdln ACOG Testing 30-65 Normal [facility] Comment on above: Performed By: #### [id number] #### [facility] [address] [address] [address] Beth Gutierrez DIAGNOSIS: Comment Normal [facility] Comment on above: Result Comment: NEGATIVE FOR INTRAEPITHE LIAL LESION OR MALIGNANCY. Performed at: WB Performed By: #### [id number] #### [facility] [address] [address] [address] Beth Gutierrez HPV Aptima Negative Normal Negative [facility] Comment on above: Result Comment: This nucleic acid amplif ication test detects fourteen high-risk HPV types (16,18,31,33,35,39,45,51,52,56,58,59,66,68) without differentiation. Performed at: =G Performed By: #### [id number] #### [facility] [address] [address] [address] Beth Gutierrez Methodology: Comment Normal [facility] Comment on above: Result Comment: This liquid based ThinPr ep(R) pap test was screened with the use of an image guided system. Performed at: WB Performed By: #### [id number] #### [facility] [address] [place] [address] Dr. Beth Gutierrez Note: Comment Normal [facility] Comment on above: Result Comment: [...] Performed at: WB Performed By: #### [id number] #### [facility] [address] [place] [address] Dr. Beth Gutierrez Performed by: Comment Normal [facility] Comment on above: Result Comment: Charmaine Lomas [employer] nologist (ASCP) Performed at: WB Performed By: #### [id number] #### [facility] [address] [place] [address] Dr. Beth Gutierrez Specimen adequacy: Comment Normal [facility] Comment on above: Result Comment: Satisfactory for evaluat ion. No endocervical component is identified. Performed at: WB Performed By: #### [id number] #### [facility] [address] [place] [address] Dr. Beth Gutierrez XR Hand Complete Left*on [...] by Bernard Cheng on 05/20/2022 1222 Normal [facility] [employer]ender Vital Signs Date Time Vital Sign Value Performing Clinician Faci lity 05-10-2024 11:34-0400 Body mass index (BMI) [Ratio] 27.62 kg/m2 [employer] Work Phone: [facility] 05-10-2024 11:34-0400 Body weight 75.3 kg Yeyo Adelaide DO Work Phone: [facility] 05-10-2024 11:34-0400 Diastolic blood pressure 72 mm[Hg] Yeyo Adelaide DO Work Phone: [facility] 05-10-2024 11:34-0400 Systolic blood pressure 118 mm[Hg] Yeyo Adelaide DO Work Phone: [facility] Encounters Encounter Date Encounter Type Care Provider Facility Start: 11-30-2024 End: 11-30-2024 Bamboo flowsheet Yeyo Adelaide DO Work Phone: [facility] Start: 11-30-2024 End: 11-30-2024 Bamboo flowsheet Yeyo Adelaide DO Work Phone: [facility] Start: 05-10-2024 End: 05-10-2024 Office outpatient visit 10 minutes Yeyo Adelaide DO Work Phone: [facility] Comment on above: Pre-op examination; Request for sterilization Start: 05-10-2024 End: 05-10-2024 Preprocedural examination done Yeyo Adelaide DO Work Phone: [facility] Start: 05-10-2024 End: 05-10-2024 ambulatory YEYO ADELAIDE Not Available Start: 01-25-2024 ambulatory Fredis Graham acility:[facility] Start: 12-28-2023 End: 12-28-2023 ambulatory RNOI MORAN Not Available Start: 12-22-2023 End: 12-22-2023 Encounter Gurvinder Wills MD Work Phone: [facility] 3E NICU Start: 12-21-2023 End: 12-21-2023 Encounter Gurvinder Wills MD Work Phone: [facility] 3E NICU Start: 12-18-2023 End: 12-18-2023 Encounter Gurvinder Wills MD Work Phone: [address] Start: 12-15-2023 End: 12-15-2023 Encounter Gurvinder Wills MD Work Phone: [address] Start: 12-08-2023 Encounter Gurvinder hills MD Work Phone: [address] Start: 12-05-2023 Encounter Gurvinder hills MD Work Phone: [address] Start: 12-01-2023 Encounter Gurvinder hills MD Work Phone: [address] Start: 11-28-2023 Encounter Gurvinder hills MD Work Phone: [address] Start: 11-27-2023 Encounter Gurvinder hills MD Work Phone: [address] Start: 11-23-2023 End: 11-23-2023 ambulatory YEYO ADELAIDE Not Available Start: 11-21-2023 Encounter Gurvinder hills MD Work Phone: [address] Start: 11-17-2023 Encounter Gurvinder hills MD Work Phone: [facility] 3W NICU Start: 11-14-2023 Encounter Gurvinder hills MD Work Phone: [facility] 3W NICU Start: 11-13-2023 Encounter Gurvinder hills MD Work Phone: [facility] 3W NICU Start: 11-12-2023 Encounter Gurvinder hills MD Work Phone: [facility] 3W NICU Start: 11-10-2023 Encounter Gurvinder hills MD Work Phone: [facility] 3W NICU Start: 10-07-2023 End: 10-07-2023 ambulatory YEYO BRYSON Not Available Start: 09-09-2023 End: 09-09-2023 ambulatory RONI MORAN Not Available Start: 08-11-2023 End: 08-11-2023 ambulatory YEYO BRYSON Not Available Start: 07-27-2023 End: 07-27-2023 ambulatory RONI MORAN Not Available Start: 05-14-2022 End: 05-14-[address] GURVINDER WILLS Facility: Start: 04-16-2022 End: 04-16-2022 ambulatory Ankit Anna Other [facility] Other Start: 04-16-2022 Telephone encounter Ankit Anna [facility] Start: 03-05-2022 End: 03-05-2022 ambulatory Ankit Anna Other [facility] Other Start: 03-05-2022 Telephone encounter Ankit Anna [facility] Start: 09-30-2021 End: 09-30-2021 ambulatory Ankit Anna Other [facility] Other Start: 09-30-2021 Telephone encounter Ankit Anna [facility] Procedures Date Procedure Procedure Detail Performing Clinician Start: 07-27-2023 Microscopic observat ion [Identifier] in Cervix by Cyto stain Gurvinder Wills MD Work Phone: Plan of Treatment Date Care Activity Detail Author Start: 10-20-2033 DTaP,Tdap and Td Vaccines (2 - Td or Tdap) DTaP,Tdap and Td Vaccines (2 - Td or Tdap) [facility] Start: 07-27-2028 Screening for malign ant neoplasm of cervix [facility] Start: 07-27-2026 Screening for malign ant neoplasm of cervix Pap Smear [facility] Start: 11-30-2024 End: 11-30-2024 Patient encounter procedure 11/30/2024 1:20 PM EDT Office Visit [facility] [address] [place] [id number] Yeyo Bryson, DO [address] [place] [address] Arrived [facility] Comment on above: Arrived Start: 11-06-2024 Tobacco Screening Tobacco Screening [facility] Start: 10-11-2024 Adult BMI Screening Adult BMI Screen ing [facility] Start: 08-17-2024 End: 08-17-2024 Patient encounter procedure 08/17/2024 11:00 AM EST Office Visit [facility] [address] [place] [id number] Yeyo Bryson, DO [address] [facility] [address] [place], [place] [id number] [facility] Start: 05-08-2024 Influenza vaccination [facility] Start: 05-08-2023 Influenza vaccination Influenza Vacc ine [facility] Start: 2005 Adult BMI Follow Up Plan Adult BMI Follow Up Plan [facility] Start: 1999 Depression Screening Depression Scre ening [facility] Immunizations Immunization Date Immunization Notes Care Provider Fa cility 10-20-2023 tetanus toxoid, redu flor diphtheria toxoid, and acellular pertussis vaccine, adsorbed Gurvinder Wills MD Work Phone: [facility] Payers Date Payer Category Payer Self-pay 2015 Managed Care HMO (unspecified) [employer] [id number] 2015-Present [address] [place] [address] HMO [id number] 2015 Private Health Insurance [id number] 1987 Unknown [id number] 1987 Unknown [id number] 1987 Unknown [id number] 1987 Unknown [id number] 1987 Unknown [id number] .9 1987 Unknown [id number] .9 1987 Unknown [id number] .9 1987 Unknown [id number] 1959 Private Health Insurance [id number] Unknown [id number] Social History Date Type Detail Facility Unknown if ever smoked [facility] Other Start: 07-24-2023 End: 05-10-2024 Sex Assigned At [facility] Start: 05-30-2023 End: 10-11-2023 Tobacco smoking status [facility] Never smoked tobacco [facility] Start: 05-10-2024 Alcoholic beverage intake Current drinker of alcohol (finding) [facility] Start: 07-24-2023 End: 05-10-2024 History of Social function [facility] How often to you hav e a drink containing alcohol? Monthly or less [facility] How many standard drinks containing alcohol do you have on a typical day? 1 or 2 [facility] How often do you hav e 6 or more drinks on 1 occasion? Less than monthly [facility] Start: 05-30-2023 Education [facility] Start: 05-30-2023 Alcohol Comment Alcohol: 1 or 2 drinks on a typical day/monthly or less Caffeine: 1-2 cups/day [facility] Start: 1985 Sex assigned at Not on file P [facility] Start: 10-11-2023 Tobacco use and exposure Smokeless tobacco non-user [facility] Start: 11-09-2023 Alcohol intake Lifetime non-d blaire (finding) [facility] Childcare Unknown [facility] Clinical Notes 11-10-2023 to 05-10-2024 Nereyda Millan - 05/10/2024 11:10 AM EDTLactation Note - Desiree Ocampo RN - 12/22/2023 1:27 PM EDTLactation Note - Desiree Ocampo RN - 12/22/2023 1:27 PM EDT Note Date & Type Note Facility 05-10-2024 History of Present illness Narrative Reason for Appointment: Patient ID: Carol Bennett is a 38 y.o. female who presents for Pre-op Visit Patient presents today for Pre Op appointment. Patient is scheduled to undergo Da Bony assisted Bilateral Laparoscopic Salpingectomy on 06/03/[address] Bryson at [facility]. MEDICATIONS Current Outpatient Medications Medication Instructions acetaminophen (TYLENOL) 1,000 mg, Oral, Every 8 hours ibuprofen 800 mg, Oral, Every 8 hours MV-Min-Fe Fum-FA-DHA ( 1 PO) Oral ALLERGIES Allergies Allergen Reactions Amoxicillin Unknown PROBLEMS Active Ambulatory Problems Diagnosis Date Noted No Active Ambulatory Problems Resolved Ambulatory Problems Diagnosis Date Noted No Resolved Ambulatory Problems Past Medical History: Diagnosis Date POLLO positive Anxiety Chronic fatigue Current moderate episode of major depressive disorder without prior episode (HCC) (CMS/HCC) Depression (CMS/HCC) Disorder of initiating and maintaining sleep ESS (euthyroid sick syndrome) History of psychiatric hospitalization Mixed obsessional thoughts and acts (CMS/HCC) Moderate episode of recurrent major depressive disorder (HCC) (CMS/HCC) OCD (obsessive compulsive disorder) (CMS/HCC) PMDD (premenstrual dysphoric disorder) ([facility]/HCC) PTSD (post-traumatic stress disorder) (CMS/HCC) RLS (restless legs syndrome) Seasonal affective disorder (CMS/HCC) Severe episode of recurrent major depressive disorder, with psychotic features (HCC) (CMS/[facility]) HISTORY PAST MEDICAL HISTORY SOCIAL HISTORY Past Medical History: Diagnosis Date POLLO positive Anxiety Chronic fatigue Current moderate episode of major depressive disorder without prior episode (HCC) (CMS/HCC) Depression ([facility]/HCC) Disorder of initiating and maintaining sleep ESS (euthyroid sick syndrome) History of psychiatric hospitalization [facility] mental [facility] (02/2021), [facility] mental [facility] (09/2018) Mixed obsessional thoughts and acts (CMS/HCC) Moderate episode of recurrent major depressive disorder (HCC) ([facility]/HCC) OCD (obsessive compulsive disorder) (CMS/HCC) PMDD (premenstrual dysphoric disorder) (CMS/HCC) PTSD (post-traumatic stress disorder) (CMS/HCC) RLS (restless legs syndrome) Seasonal affective disorder ([facility]/HCC) Severe episode of recurrent major depressive disorder, with psychotic features (HCC) ([facility]) Social History Tobacco Use Smoking status: Never Smokeless tobacco: Not on file Substance Use Topics Alcohol use: Yes Comment: Alcohol: 1 or 2 drinks on a typical day/monthly or less Caffeine: 1-2 cups/day Drug use: Never FAMILY HISTORY Family History Problem Relation Name Age of Onset Mental illness Mother No Known Problems Brother 2 brothers, healthy Mental illness Maternal Grandmother severe depression Mental illness Paternal Grandmother depression/anxiety No Known Problems Daughter No Known Problems Daughter SURGICAL HISTORY Past Surgical History: Procedure Laterality Date SECTION, LOW TRANSVERSE 11/07/2023 REVIEW OF SYSTEMS Review of Systems: Review of Systems Constitutional: Negative. HENT: Negative. Eyes: Negative. Respiratory: Negative. Cardiovascular: Negative. Gastrointestinal: Negative. Genitourinary: Negative. Musculoskeletal: Negative. Skin: Negative. Neurological: Negative. All other systems reviewed and are negative. Hematological: Negative. Endocrine: Negative. Allergic/Immunologic: Negative. OBJECTIVE Objective: Physical Exam Constitutional: Appearance: Normal appearance. She is well-developed. Cardiovascular: Rate and Rhythm: Normal rate and regular rhythm. Pulmonary: Effort: Pulmonary effort is normal. Breath sounds: Normal breath sounds. Abdominal: General: Bowel sounds are normal. There is no distension. Palpations: Abdomen is soft. Tenderness: There is no abdominal tenderness. There is no guarding or rebound. Musculoskeletal: General: No swelling. Normal range of motion. Right lower leg: No edema. Left lower leg: No edema. Neurological: Mental Status: She is alert and oriented to person, place, and time. Skin: General: Skin is warm and dry. Psychiatric: Mood and Affect: Mood normal. Behavior: Behavior normal. Vitals and nursing note reviewed. Exam conducted with a finnish rubber present. Vitals: Estimated body mass index is 29.12 kg/m as calculated from the following: Height as of 09/10/21: 5' 5 . Weight as of 12/28/23: 175 lb. BP: No LMP recorded. ASSESSMENT & PLAN ICD-10-CM 1. Pre-op examination Z01.818 2. Request for sterilization Z30.2 Pre Op: Patient is doing well but has desire for sterilization. I have discussed conservative management vs. surgical management with the patient in detail and patient desires surgical management at this time. Patient has voiced understanding that a Bilateral Salpingectomy is considered to be permanent and patient will undergo Da Bony assisted Bilateral Laparoscopic Salpingectomy on . Surgical consents were signed, mmc was reviewed, and patient is to proceed to [facility] OR. Pt has had depression in the past- has taken prozac in the past. - pt denies suicidal and homicidal ideations. Pt will call when she desires. Follow Up: Patient is to follow up between 1-2 weeks post op to assess proper healing and recovery from procedure. Documented by Myra Kamara LPN on behalf of: nora Hayes documented in this encounter [facility] 12-22-2023 Miscellaneous Notes This note was copied from a baby's chart. Met with mother at 's bedside. States that pumping continues to go well with stable supply and no pain or discomfort. Upon further discussion, mom unsure how much she should be attempting while in NICU. Per mom, seems to take bottles better and she doesn't want to do too much to wear him out. Her hope is that once he is home she can put him to breast as well as give bottles while continuing to pump. Talked with mom about offering breast when she is here in the afternoons maybe one or two times a day. Limiting breast attempts can help maintain infant stamina while continuing to provide practice at breast. Once she's home and baby continues to grow, she can gradually add in more sessions. No further questions or concerns, encouraged to call out for any other assistance. [facility] Obstetrics Note This note was copied from a baby's chart. Met with mother at infant's bedside. States that pumping continues to go well with stable supply and no pain or discomfort. Upon further discussion, mom unsure how much she should be attempting while in NICU. Per mom, seems to take bottles better and she doesn't want to do too much to wear him out. Her hope is that once he is home she can put him to breast as well as give bottles while continuing to pump. Talked with mom about offering breast when she is here in the afternoons maybe one or two times a day. Limiting breast attempts can help maintain infant stamina while continuing to provide practice at breast. Once she's home and baby continues to grow, she can gradually add in more sessions. No further questions or concerns, encouraged to call out for any other assistance. [facility]23 Miscellaneous Notes This note was copied from a baby's chart. Met with mother at infants bedside. States pumping is going well and supply is stable. No complaints of pain or discomfort. has reflux and speech has recommend upright feeding. Recommend upright positioning for . Per mother is latching well and transfers well at breast without reflux symptoms while eating. Encouraged to have LC evaluate feed and recommend test weight. Test Weight Test weights are used to determine how much the baby ate during a session. It involves the use of a sensitive scale, within 2 g or less, and digital readout. Weight gain in grams is approximately equal to the intake of milk in milliliters. This can help with maternal self-confidence, stress levels and progress of the dyad with . It can also be used to determine the need for supplementation. Test weights should not be routine care for infants in the NICU and should be done in conjunction with a automobile sales consultant. Plan: Offer breast each feed when cues for 5-10 minutes. Infant Feeding Cues: -hands in mouth -smacking lips -rooting -eyes open If after 5-10 minutes has latched allow to continue until satisfied and follow IDF feeding protocol. Educated on how to supplement after infant goes to breast. Supplementation is based on infants direct time and quality score. Mothers milk supply must also be taken into account. This is per RN discretion. Algorithm Quality Score 1-5, Direct time 0-5 minutes: Gavage all Quality score 1-3, Direct time 6-10 minutes: Gavage 2/3 Quality Score 1-3, Direct time 11-15 minutes: Gavage 1/3 Quality Score 1-3, Direct time 16 minutes or more: No Gavage. If after 5-10 minutes does not latch but infant continues to show feeding cues, offer bottle. If after 5-10 minutes infant does not latch but does not show the feeding cues for a bottle, start gavage fed and allow infant to have continued access to breast. Questions answered, encouragement given. documented in this encounter [facility] 12-21-2023 Obstetrics Note This note was copied from a baby's chart. Met with mother at infants bedside. States pumping is going well and supply is stable. No complaints of pain or discomfort. Infant has reflux and speech has recommend upright feeding. Recommend upright positioning for . Per mother is latching well and transfers well at breast without reflux symptoms while eating. Encouraged to have LC evaluate feed and recommend test weight. Test Weight Test weights are used to determine how much the baby ate during a session. It involves the use of a sensitive scale, within 2 g or less, and digital readout. Weight gain in grams is approximately equal to the intake of milk in milliliters. This can help with maternal self-confidence, stress levels and progress of the dyad with . It can also be used to determine the need for supplementation. Test weights should not be routine care for infants in the NICU and should be done in conjunction with a automobile sales consultant. Plan: Offer breast each feed when infant cues for 5-10 minutes. Infant Feeding Cues: -hands in mouth -smacking lips -rooting -eyes open If after 5-10 minutes has latched allow to continue until satisfied and follow IDF feeding protocol. Educated on how to supplement after infant goes to breast. Supplementation is based on infants direct time and quality score. Mothers milk supply must also be taken into account. This is per RN discretion. Algorithm Quality Score 1-5, Direct time 0-5 minutes: Gavage all Quality score 1-3, Direct time 6-10 minutes: Gavage 2/3 Quality Score 1-3, Direct time 11-15 minutes: Gavage 1/3 Quality Score 1-3, Direct time 16 minutes or more: No Gavage. If after 5-10 minutes does not latch but infant continues to show feeding cues, offer bottle. If after 5-10 minutes infant does not latch but does not show the feeding cues for a bottle, start gavage fed and allow infant to have continued access to breast. Questions answered, encouragement given. [facility] 12-18-2023 Miscellaneous Notes This note was copied from a baby's chart. Met with mother at bedside. States pumping is going well and no pain noted with pumping. Mother has been latching and he is doing well at breast however he gets frustrated waiting for the letdown. Discussed pumping for a minute or two and then latching until he gets used to going to breast fully. Questions answered and support given. documented in this encounter [facility] 12-18-2023 Obstetrics Note This note was copied from a baby's chart. Met with mother at bedside. States pumping is going well and no pain noted with pumping. Mother has been latching infant and he is doing well at breast however he gets frustrated waiting for the letdown. Discussed pumping for a minute or two and then latching until he gets used to going to breast fully. Questions answered and support given. [facility] 04-09-2024 Miscellaneous Notes This note was copied from a baby's chart. Met with mother at infants bedside. States pumping is going well and supply is stable. Mother is able to get about 6-8oz 6 times/day. No complaints of pain or discomfort with pumping. Per mother infant has been latching well. Discussed what a good feed looks and sounds like. Signs of a good feeding Hearing swallowing at least every third suck once the milk comes-in. Seeing milk in the baby s mouth Consistent sucking with only brief pauses The breasts are softer after feedings Feeling strong, deep, pulling , sucking, no sharp pain Leaking from the other breast or feeling of a let-down reflex or noticing a change in the baby s sucking rhythm from faster to slower Your baby latches-on easily with minimal attempts and stays latched-on. Plan: Offer breast each feed when cues for 5-10 minutes. Infant Feeding Cues: -hands in mouth -smacking lips -rooting -eyes open If after 5-10 minutes has latched allow to continue until satisfied and follow IDF feeding protocol. Educated on how to supplement after goes to breast. Supplementation is based on infants direct time and quality score. Mothers milk supply must also be taken into account. This is per RN discretion. Algorithm Quality Score 1-5, Direct time 0-5 minutes: Gavage all Quality score 1-3, Direct time 6-10 minutes: Gavage 2/3 Quality Score 1-3, Direct time 11-15 minutes: Gavage 1/3 Quality Score 1-3, Direct time 16 minutes or more: No Gavage. If after 5-10 minutes infant does not latch but continues to show feeding cues, offer bottle. If after 5-10 minutes does not latch but does not show the feeding cues for a bottle, start gavage fed and allow infant to have continued access to breast. Questions answered, encouragement given. documented in this encounter [facility] 12-15-2023 Obstetrics Note This note was copied from a baby's chart. Met with mother at infants bedside. States pumping is going well and supply is stable. Mother is able to get about 6-8oz 6 times/day. No complaints of pain or discomfort with pumping. Per mother has been latching well. Discussed what a good feed looks and sounds like. Signs of a good feeding Hearing swallowing at least every third suck once the milk comes-in. Seeing milk in the baby s mouth Consistent sucking with only brief pauses The breasts are softer after feedings Feeling strong, deep, pulling , sucking, no sharp pain Leaking from the other breast or feeling of a let-down reflex or noticing a change in the baby s sucking rhythm from faster to slower Your baby latches-on easily with minimal attempts and stays latched-on. Plan: Offer breast each feed when cues for 5-10 minutes. Infant Feeding Cues: -hands in mouth -smacking lips -rooting -eyes open If after 5-10 minutes has latched allow to continue until satisfied and follow IDF feeding protocol. Educated on how to supplement after goes to breast. Supplementation is based on infants direct time and quality score. Mothers milk supply must also be taken into account. This is per RN discretion. Algorithm Quality Score 1-5, Direct time 0-5 minutes: Gavage all Quality score 1-3, Direct time 6-10 minutes: Gavage 2/3 Quality Score 1-3, Direct time 11-15 minutes: Gavage 1/3 Quality Score 1-3, Direct time 16 minutes or more: No Gavage. If after 5-10 minutes does not latch but continues to show feeding cues, offer bottle. If after 5-10 minutes infant does not latch but does not show the feeding cues for a bottle, start gavage fed and allow infant to have continued access to breast. Questions answered, encouragement given. [employer] 12-08-2023 Miscellaneous Notes This note was copied from a baby's chart. Met with father at bedside. He states pumping is going well for mom and she is getting good amounts. Encouraged to have her call and talk to a LC if she has any questions or concerns at [phone] documented in this encounter [facility] 12-08-2023 Obstetrics Note This note was copied from a baby's chart. Met with father at bedside. He states pumping is going well for mom and she is getting good amounts. Encouraged to have her call and talk to a LC if she has any questions or concerns at [phone] [facility] 12-05-2023 Miscellaneous Notes This note was copied from a baby's chart. Met with mother at infants bedside. States pumping is going well and supply is stable. Mother has increased sensitivity in breasts and has noticed some plugged ducts. Discussed flange size and recommend to decrease to 25 mm if not smaller, will call out for LC to evaluate flange fit when ready. Discussed silicone inserts. Flange Fit A flange fits correctly when: your nipple is centered in the tube no parts of your nipple rub against the sides little or no areola is pulled in when the pump is turned on On the other hand, a flange is not fitting properly when: you experience nipple pain during or after the pumping session you notice your nipple is becoming discolored, chapped, or otherwise injured In addition to breast and nipple pain, using the wrong sized pump flange can negatively impact the amount of milk you are able to get out of your breast. A flange that fits too tightly will cause the breast to be constricted in ways that can lead to clogged/blogged milk ducts. (When ducts are clogged, they don t release milk and new milk isn t formed as quickly.) On the other hand, a flange that fits too loosely won t provide adequate suction. This can also lead to milk being left in the breast and lower milk production in the future. Pain and infection can develop from this as well. For plug ducts, Milk flows through a system of microscopic-sized tubes--ducts--in your breasts, which are easily compressed. When more milk is produced than your baby drinks (for example, if you re pumping in addition to ), this can produce pressure which your body responds to as a threat. Inflammatory cells and fluids laguerre into the area to help repair the damage and fight off bacteria. The swelling that occurs from this inflammation presses on some of the ducts, which slows or blocks the milk from flowing well. The skin in this area may appear darker, redder, or pinker than usual. In darker skin, redness may not be as easily detected or may not be visible at all. It may feel warm to the touch. If this inflammation is not treated, the area can become more inflamed or infected. This can occur any time your breasts become overly full, Possible factors include: You and your baby are for longer stretches than usual between feedings Your baby starts sleeping longer at night Your baby is teething, has a stuffy nose, or is otherwise feeling out of sorts and nursing less. Plugged Duct Treatment: Consider yourself sick, and rest! Focus on caring for yourself, your breast, and your baby. Apply cold or ice packs to the affected area. Be aware that antibiotics may not be recommended right away. This is not an infection when it starts. Taking unnecessary antibiotics may encourage resistant strains of bacteria to thrive, and may make you more likely to have recurrent mastitis or an abscess in the future. Make sure you are emptying your breasts regularly. Avoid excessive pumping. Pumping more than your baby needs may create too much milk, also known as hyperlactation. Check to see that your baby or child is well-positioned and has a good latch or attachment. This helps the baby to take more of your milk. If you wear a bra, make sure it is well-fitting, supportive, and not tight. Avoid clothing or straps that are tight on the breast, chest, and underarm area. Questions answered, encouragement given. documented in this encounter [employer] 12-05-2023 Obstetrics Note This note was copied from a baby's chart. Met with mother at infants bedside. States pumping is going well and supply is stable. Mother has increased sensitivity in breasts and has noticed some plugged ducts. Discussed flange size and recommend to decrease to 25 mm if not smaller, will call out for LC to evaluate flange fit when ready. Discussed silicone inserts. Flange Fit A flange fits correctly when: your nipple is centered in the tube no parts of your nipple rub against the sides little or no areola is pulled in when the pump is turned on On the other hand, a flange is not fitting properly when: you experience nipple pain during or after the pumping session you notice your nipple is becoming discolored, chapped, or otherwise injured In addition to breast and nipple pain, using the wrong sized pump flange can negatively impact the amount of milk you are able to get out of your breast. A flange that fits too tightly will cause the breast to be constricted in ways that can lead to clogged/blogged milk ducts. (When ducts are clogged, they don t release milk and new milk isn t formed as quickly.) On the other hand, a flange that fits too loosely won t provide adequate suction. This can also lead to milk being left in the breast and lower milk production in the future. Pain and infection can develop from this as well. For plug ducts, Milk flows through a system of microscopic-sized tubes--ducts--in your breasts, which are easily compressed. When more milk is produced than your baby drinks (for example, if you re pumping in addition to ), this can produce pressure which your body responds to as a threat. Inflammatory cells and fluids laguerre into the area to help repair the damage and fight off bacteria. The swelling that occurs from this inflammation presses on some of the ducts, which slows or blocks the milk from flowing well. The skin in this area may appear darker, redder, or pinker than usual. In darker skin, redness may not be as easily detected or may not be visible at all. It may feel warm to the touch. If this inflammation is not treated, the area can become more inflamed or infected. This can occur any time your breasts become overly full, Possible factors include: You and your baby are for longer stretches than usual between feedings Your baby starts sleeping longer at night Your baby is teething, has a stuffy nose, or is otherwise feeling out of sorts and nursing less. Plugged Duct Treatment: Consider yourself sick, and rest! Focus on caring for yourself, your breast, and your baby. Apply cold or ice packs to the affected area. Be aware that antibiotics may not be recommended right away. This is not an infection when it starts. Taking unnecessary antibiotics may encourage resistant strains of bacteria to thrive, and may make you more likely to have recurrent mastitis or an abscess in the future. Make sure you are emptying your breasts regularly. Avoid excessive pumping. Pumping more than your baby needs may create too much milk, also known as hyperlactation. Check to see that your baby or child is well-positioned and has a good latch or attachment. This helps the baby to take more of your milk. If you wear a bra, make sure it is well-fitting, supportive, and not tight. Avoid clothing or straps that are tight on the breast, chest, and underarm area. Questions answered, encouragement given. [facility] 12-01-2023 Miscellaneous Notes This note was copied from a baby's chart. Met with mother at infant's bedside. States that pumping continues to go well with stable supply and no pain or discomfort. No current questions or concerns, encouraged to call out for any other assistance. documented in this encounter [facility] 12-01-2023 Obstetrics Note This note was copied from a baby's chart. Met with mother at 's bedside. States that pumping continues to go well with stable supply and no pain or discomfort. No current questions or concerns, encouraged to call out for any other assistance. [facility] 11-28-2023 Miscellaneous Notes This note was copied from a baby's chart. Met with mom at 's bedside. States that pumping continues to go well, she has stable supply and denies pain or discomfort. No questions or concerns, encouraged to call out for any other assistance. documented in this encounter [facility] 11-28-2023 Obstetrics Note This note was copied from a baby's chart. Met with mom at 's bedside. States that pumping continues to go well, she has stable supply and denies pain or discomfort. No questions or concerns, encouraged to call out for any other assistance. [facility] 11-27-2023 Miscellaneous Notes This note was copied from a baby's chart. Met with mom at 's bedside. States that pumping is going well, she has a stable supply and continues pumping every three to four hours. Questions answered about let down, mom does feel some tingling and discomfort at the beginning of pumping, which she then says goes away after a couple of minutes and denies any further pain. This sensation could be her body's let down reflex to begin larger milk flow while pumping. No further questions or concerns, encouraged to reach out for any other assistance. Let Down The milk let-down, or milk-ejection reflex, is when a nursing mother s milk is being actively released from the cells that produce and store the milk. These cells are called alveoli, and when they constrict and release the milk to flow into the ducts that will deliver milk to the nipple, milk let-down is said to have occurred. Many women can sense when their milk is letting down. They may feel a tingling sensation in the breast or see milk leaking from the opposite breast. However, not all women sense a let-down, and it is important to know that that can be normal, too! documented in this encounter [facility] 11-27-2023 Obstetrics Note This note was copied from a baby's chart. Met with mom at infant's bedside. States that pumping is going well, she has a stable supply and continues pumping every three to four hours. Questions answered about let down, mom does feel some tingling and discomfort at the beginning of pumping, which she then says goes away after a couple of minutes and denies any further pain. This sensation could be her body's let down reflex to begin larger milk flow while pumping. No further questions or concerns, encouraged to reach out for any other assistance. Let Down The milk let-down, or milk-ejection reflex, is when a nursing mother s milk is being actively released from the cells that produce and store the milk. These cells are called alveoli, and when they constrict and release the milk to flow into the ducts that will deliver milk to the nipple, milk let-down is said to have occurred. Many women can sense when their milk is letting down. They may feel a tingling sensation in the breast or see milk leaking from the opposite breast. However, not all women sense a let-down, and it is important to know that that can be normal, too! [email or web address] Notes This note was copied from a baby's chart. Met with mom at 's bedside. States that pumping is going well with stable supply and denies pain or discomfort. She has been using a rental pump through the [facility] [employer] and is working with her insurance to see if she can get a different pump that she will be more comfortable with. No further questions or concerns, encouraged to call out for any other assistance. documented in this encounter [facility] 11-21-2023 Obstetrics Note This note was copied from a baby's chart. Met with mom at infant's bedside. States that pumping is going well with stable supply and denies pain or discomfort. She has been using a rental pump through the [facility] [employer] and is working with her insurance to see if she can get a different pump that she will be more comfortable with. No further questions or concerns, encouraged to call out for any other assistance. [facility] 11-17-2023 Miscellaneous Notes This note was copied from a baby's chart. Met with mother at infant's bedside. States pumping is going well without any pain or discomfort. States 28 mm flange feels better and blisters have improved. She is getting about 170 ml every three hours. Denies any questions or concerns at this time. Encouraged to call out with any assistance. Support given. documented in this encounter [facility] 11-17-2023 Obstetrics Note This note was copied from a baby's chart. Met with mother at 's bedside. States pumping is going well without any pain or discomfort. States 28 mm flange feels better and blisters have improved. She is getting about 170 ml every three hours. Denies any questions or concerns at this time. Encouraged to call out with any assistance. Support given. [facility] 11-14-2023 Miscellaneous Notes This note was copied from a baby's chart. Met with mother at infant's bedside. Stated she will be staying at [facility] and had concerns she would not have access to a pump as her rental pump is at her home one hour away. Discussed how [facility] should provide her with a hospital grade breast pump to her room upon request. Encouraged to reach out to if she has any issues and we can provide a pump. Questions answered and support given. documented in this encounter [facility] 11-14-2023 Obstetrics Note This note was copied from a baby's chart. Met with mother at 's bedside. Stated she will be staying at [facility] and had concerns she would not have access to a pump as her rental pump is at her home one hour away. Discussed how [facility] should provide her with a hospital grade breast pump to her room upon request. Encouraged to reach out to if she has any issues and we can provide a pump. Questions answered and support given. [facility] Miscellaneous Notes This note was copied from a baby's chart. Met with mother at infant's bedside. States that she continues pumping and has noticed steadily increasing supply. Questions about flange fit, she is unsure if her nipples are rubbing against that sides. She feels like as she pumps, nipple swell and becomes tight into the flange tubing. Experiences some discomfort at the beginning of pumping before it evens out and becomes comfortable. Offered to come and measure nipples for flange sizing, will call out when ready. Encouraged to call out for any other assistance. documented in this encounter [facility] 11-13-2023 Obstetrics Note This note was copied from a baby's chart. Met with mother at infant's bedside. States that she continues pumping and has noticed steadily increasing supply. Questions about flange fit, she is unsure if her nipples are rubbing against that sides. She feels like as she pumps, nipple swell and becomes tight into the flange tubing. Experiences some discomfort at the beginning of pumping before it evens out and becomes comfortable. Offered to come and measure nipples for flange sizing, will call out when ready. Encouraged to call out for any other assistance. [facility]12-[facility]23 Miscellaneous Notes This note was copied from a baby's chart. Met with mom at infant's bedside. States that pumping is going well, she has continued to pump every three hours and her supply has doubled. She has begun using 30mm flange size and states this is a much more comfortable fit. No further questions or concerns, encouraged to call out for any other assistance. documented in this encounter [employer] 11-12-2023 Obstetrics Note This note was copied from a baby's chart. Met with mom at 's bedside. States that pumping is going well, she has continued to pump every three hours and her supply has doubled. She has begun using 30mm flange size and states this is a much more comfortable fit. No further questions or concerns, encouraged to call out for any other assistance. [employer] 11-10-2023 Miscellaneous Notes This note was copied from a baby's chart. Met with mother at infants bedside. States pumping is going well and supply is increasing. Mother is getting 60-70mls every 2-3 hours. Reinforced pumping guidelines and importance of pumping how infant eats. Encouraged pumping every 2-3 hours for 15-20 minutes at suction level that is comfortable. Mom will only produce the amount of breastmilk that her baby demands. It is true that hormones drive the production of very early breastmilk, called colostrum. However, in order to keep producing breastmilk, your baby needs to keep sucking from the breast. The overall level of milk production varies based on the babys amount of sucking and how much milk is actually removed. Mother has a crack on nipple. Discussed flange size. Larger flanges given. Flange Fit A flange fits correctly when: your nipple is centered in the tube no parts of your nipple rub against the sides little or no areola is pulled in when the pump is turned on On the other hand, a flange is not fitting properly when: you experience nipple pain during or after the pumping session you notice your nipple is becoming discolored, chapped, or otherwise injured In addition to breast and nipple pain, using the wrong sized pump flange can negatively impact the amount of milk you are able to get out of your breast. A flange that fits too tightly will cause the breast to be constricted in ways that can lead to clogged/blogged milk ducts. (When ducts are clogged, they don t release milk and new milk isn t formed as quickly.) On the other hand, a flange that fits too loosely won t provide adequate suction. This can also lead to milk being left in the breast and lower milk production in the future. Pain and infection can develop from this as well. Mother has home pump and rental. Questions answered, encouragement given. documented in this encounter [facility] 11-10-2023 Obstetrics Note This note was copied from a baby's chart. Met with mother at infants bedside. States pumping is going well and supply is increasing. Mother is getting 60-70mls every 2-3 hours. Reinforced pumping guidelines and importance of pumping how infant eats. Encouraged pumping every 2-3 hours for 15-20 minutes at suction level that is comfortable. Mom will only produce the amount of breastmilk that her baby demands. It is true that hormones drive the production of very early breastmilk, called colostrum. However, in order to keep producing breastmilk, your baby needs to keep sucking from the breast. The overall level of milk production varies based on the babys amount of sucking and how much milk is actually removed. Mother has a crack on nipple. Discussed flange size. Larger flanges given. Flange Fit A flange fits correctly when: your nipple is centered in the tube no parts of your nipple rub against the sides little or no areola is pulled in when the pump is turned on On the other hand, a flange is not fitting properly when: you experience nipple pain during or after the pumping session you notice your nipple is becoming discolored, chapped, or otherwise injured In addition to breast and nipple pain, using the wrong sized pump flange can negatively impact the amount of milk you are able to get out of your breast. A flange that fits too tightly will cause the breast to be constricted in ways that can lead to clogged/blogged milk ducts. (When ducts are clogged, they don t release milk and new milk isn t formed as quickly.) On the other hand, a flange that fits too loosely won t provide adequate suction. This can also lead to milk being left in the breast and lower milk production in the future. Pain and infection can develop from this as well. Mother has home pump and rental. Questions answered, encouragement given. [employer] Evaluation note No Information [facility] [employer] Other Evaluation note Diagnosis Pre-op examination Request for sterilization documented in this encounter [facility] Narrative - Reported* Type Description Date Medical History Anxiety [facility] [employer] Other InstructionsNot on filedocumented in this encounter [employer] SystemInstructionsNot on filedocumented in this encounter [employer] Summary Purpose Family History No Family History Records FoundNo Family History Records FoundNo Family History Records FoundNo Family History Records Found Advance Directives Latest Code Status on File Code Status Date Activated Date Inactivated Comments Full Code 10/11/2023 6:04 AM 11/10/2023 5:01 PM Date Activated Date Inactivated Comments 10/11/2023 6:04 AM 11/10/2023 5:01 PM Additional Source Comments REASON FOR VISIT (unrecogniz ed section and content) Reason Comments Pre-op Visit INFORMATION SOURCE (unrecogn ized section and content) DATE CREATED AUTHOR 05/20/2022 [facility] DATE CREATED AUTHOR AUTHOR'S ORGANIZ ATION 05/21/2022 [facility] DATE CREATED AUTHOR AUTHOR'S ORGANIZ ATION 02/10/2024 [facility] DATE CREATED AUTHOR AUTHOR'S ORGANIZ ATION 05/11/2024 [facility]ists EPIC Care Teams (unrecognized sec tion and content) [employer] Relationship Specialty Start Date End Date Gurvinder Wills MD [address] [place] [address] PCP - General Family Medicine 01/13/23 [employer] Relationship Specialty Start Date End Date Gurvinder Wills MD [address] [place] [address] PCP - General Family Medicine 10/12/23 [employer] Relationship Specialty Start Date End Date Gurvinder Wills MD [address] [place] [address] PCP - General Family Medicine 10/12/23 [employer] Relationship Specialty Start Date End Date Gurvinder Wills MD [address] [place] [id number] PCP - General Family Medicine 01/13/23 FOR RECORDS PERTAINING TO PATIENTS WHO ARE [...] BE BASED ON THE PRIMARY CLINICAL RECORDS. [employer] provides no warranty or guarantee of the accuracy or completeness of information in this document.
== END 2024-11-30 18:16 | disposition home or self-care (01) ==
LOC: LAB 18:15
PROVIDERS: PCP Family Medicine; Visit Provider Physician Assistant
DX: Z01.419 Encounter for gynecological examination (general) (routine) without abnormal findings (principal)
CPT/HCPCS: 87624; 88175

== ENCOUNTER 2024-12-12 09:59 | Outpatient (OUT) | payer OTHER, SELFPAY ==
--- OUTSIDE RECORDS SUMMARY | 2024-12-12 10:27 | XMS_ITS | CCD ---
Author Organization [facility] Care Team Providers Care Assembly Instructions Writer Name Role Phone Ankit Castillo Unavailable DR GURVINDER WILLS Primary Care Unavailable ADELAIDE, DR ORONA Attending Unavailable ADELAIDE, DR ORONA Consulting Unavailable DR YEYO BRYSON Admitting Unavailable Fredis Hernandes Attending UnavailFredis Mora Admitting Unavailab Gurvinder Conde Primary Care Unavailable Gurvinder Wills MD Primary Care Provider Gurvinder Wills MD Primary Care Provider [phone] Gurvinder Wills MD Primary Care Provider YEYO BRYSON Attending Unavailable NICOLE MORAN Attending Unavailable YEYO BRYSON Attending Unavailable Allergies Allergy Classification Reported Allergen(s) Allergy Type Date of Onset Reaction(s) Facility (20 sources) Amoxicillin Drug Allergy 06-06-2014 Unknown [facility] Work Phone: Medications Current Medications Medication Drug Class(es) Dates Sig (Normalized) Sig (Original) docusate sodium 100 mg oral capsule (15 sources) Start: 11-10-2023 take 1 capsule by mouth once daily as needed for constipation docusate sodium (COLACE) 100 mg capsule Indications: constipation Take 1 capsule (100 mg total) by mouth daily as needed for constipation Indications: constipation. 60 capsule 11/10/2023 Active FLUoxetine 40 mg oral capsule (7 sources) Serotonin Reuptake Inhibitor Start: 11-07-2024 End: [...] Hair Skin & Nail s Gummies Active oxyCODONE hydrochloride 5 mg oral tablet [...] 11/15/2023 Active MV-Min-Fe Fum-FA-DHA ( 1 PO) (5 sources) MV-Min- Fe Fum-FA-DHA ( 1 PO) [...] Sig (Original) acetaminophen 500 mg oral tablet (19 sources) Start: 11-10-2023 End: 11-30-2024 take 2 tablets by mouth every eight hours acetaminophen (Tylenol) 500 MG tablet Take 1,000 mg by mouth every 8 (eight) hours 11/10/2023 11/30/2024 Discontinued 12 hr buPROPion hydrochloride 100 mg extended release oral tablet (3 sources) Aminoketone take 1 tablet by mouth every twenty-four hours Wellbutrin SR 100 MG 1 tablet in the morning Orally Once a day for 30 days Not-Taking ibuprofen 800 mg oral tablet (19 sources) Nonsteroidal Anti-inflammatory Drug Start: 11-10-2023 End: 11-30-2024 take 1 tablet by mouth every eight hours ibuprofen 800 MG tablet Take 800 mg by mouth every 8 (eight) hours 11/10/2023 11/30/2024 Discontinued Triamcinolone (2 sources) Corticosteroid Start: 01-09-2021 KENALOG - 10 mg January, 40 mg Problems Problem Classification Problem Date Documented Date Episodic/Chronic Anxiety disorders (3 sources) Obsessive-compulsive disorder; Translations: [Obsessive-compulsive disorder, unspecified] Chronic Contraceptive and procreative management (3 sources) Sterilization requested; Translations: [Encounter for sterilization] 05-10-2024 Episodic Immunizations and screening for infectious disease (1 source) Encounter for screening for human papillomavirus (HPV); Translations: [ENC SCREENING HUMAN PAPILLOMAVIRUS] Onset: 05-18-2022 Episodic Mood disorders (3 sources) Severe recurrent major depression without psychotic features; Translations: [Major depressive disorder, recurrent severe without psychotic features] Chronic Other screening for suspected conditions (not mental disorders or infectious disease) (6 sources) Encounter for screening for malignant neoplasm of cervix; Translations: [Patient encounter status] Onset: 05-14-2022 Episodic Residual codes; unclassified (2 sources) Family history of malignant neoplasm of breast in first degree relative; Translations: [Family history of malignant neoplasm of breast] 11-30-2024 Episodic Results Test Name Value Interpretation Reference Range Facility IGP,APTIMA HPV,AGE GDLNon AGE GDLN ACOG TESTING Note . [facility] Comment on above: TESTS RESULT FLAG UN ITS REF RANGE LAB Clinician Provided Cytology Information Source.............Cervix;Endocervix No. of containers..01 ThinPrep Vial Age Algo ACOG Janae... 32 FLAG LEGEND: L-Low Normal,H-High Normal,LL-Alert Low,HH-Alert High <-Panic Low,>-Panic High,A-Abnormal,AA-Critical Abnormal Performed at: 01 =G [address] [place] [address] Calli Rodirguez MD, HPV APTIMA Negative Negative [facility] Comment on above: This nucleic acid am plification test detects fourteen high- risk HPV types (16,18,31,33,35,39,45,51,52,56,58,59,66,68) without differentiation. Performed at: =G - [facility], [place] [id number] Petrographer: Calli Rodriguez MD, Phone: [phone] Performed at: - [facility], [place] [id number] Petrographer: Calli Rodriguez MD, Phone: [phone] IGP, APTIMA HPV, RFX 16/18,45 Note . [facility] Comment on above: TESTS RESULT FLAG UN ITS REF RANGE LAB DIAGNOSIS: 02 NEGATIVE FOR INTRAEPITHELIAL LESION OR MALIGNANCY. THIS SPECIMEN WAS RESCREENED PART OF OUR GROUNDS CLEANER PROGRAM. Specimen adequacy: 02 Satisfactory for evaluation. Endocervical and/or squamous metaplastic cells (endocervical component) are present. Performed by: 02 Debora Rush, Crop Duster Helper (ASCP) QC reviewed by: Jerica Monteiro Crop Duster Helper (ASCP) . 02 Note: Note 02 The Pap smear is a screening test designed to aid in the detection of premalignant and malignant conditions of the uterine cervix. It is not a diagnostic procedure and should not be used as the sole means of detecting cervical cancer. Both false-positive and false-negative reports do occur. Test Methodology: Note 02 This liquid based ThinPrep(R) pap test was screened with the use of an image guided system. HPV Genotype Reflex Note 02 Criteria not met, HPV Genotype not performed. FLAG LEGEND: L-Low Normal,H-High Normal,LL-Alert Low,HH-Alert High <-Panic Low,>-Panic High,A-Abnormal,AA-Critical Abnormal Performed at: 02 WB [facility] [address] [place] [address] Calli Rodriguez MD, BRUSH-SPATULA CERVIX ENDOCERVIX [facility] ( test) Ql (U)o n 11-30-2024 Interpretation and review of laboratory results Normal [facility] Preg Test, Ur Negative Negative [facility] care [facility] PAP ACOG PANEL 2: 30 to 65on 05-20-2022 . . Normal [facility] Comment on above: Result Comment: Perf ormed at: WB Performed By: #### [id number] #### [facility] [address] [place] [address] Dr. Beth Gutierrez Age Gdln ACOG Testing 30-65 Normal [facility] Comment on above: Performed By: #### [id number] #### [facility] [address] [address] [address] Beth Gutierrez DIAGNOSIS: Comment Normal [facility] Comment on above: Result Comment: NEGA TIVE FOR INTRAEPITHELIAL LESION OR MALIGNANCY. Performed at: WB Performed By: #### [id number] #### [facility] [address] [address] [address] Beth Gutierrez HPV Aptima Negative Normal Negative [facility] Comment on above: Result Comment: This nucleic acid amplification test detects fourteen high-risk HPV types (16,18,31,33,35,39,45,51,52,56,58,59,66,68) without differentiation. Performed at: =G Performed By: #### [id number] #### [facility] [address] [place] [address] Dr. Beth Gutierrez Methodology: Comment Normal [facility] Comment on above: Result Comment: This liquid based ThinPrep(R) pap test was screened with the use of an image guided system. Performed at: WB Performed By: #### [id number] #### [facility] [address] [place] [address] Dr. Beth Gutierrez Note: Comment Normal [facility] Comment on above: Result Comment: The Pap smear is a screening test designed to aid in the detection of premalignant and malignant conditions of the uterine cervix. It is not a diagnostic procedure and should not be used as the sole means of detecting cervical cancer. Both false-positive and false-negative reports do occur. . Performed at: WB Performed By: #### [id number] #### [facility] [address] [place] [address] Dr. Bteh Gutierrez Performed by: Comment Normal [facility] Comment on above: Result Comment: Mimi Lomas, Crop Duster Helper (ASCP) Performed at: WB Performed By: #### 4 [id number] #### [facility] [address] [place] [address] Dr. Beth Gutierrez Specimen adequacy: Comment Normal [facility] Comment on above: Result Comment: Sati sfactory for evaluation. No endocervical component is identified. Performed at: WB Performed By: #### 4 [id number] #### [facility] [address] [place] [address] Dr. Beth Gutierrez XR Hand Complete Left*on [...] by Bernard Cheng on 05/20/2022 1222 Normal [facility] Tap Dancer Vital Signs Date Time Vital Sign Value Performing Clinician Faci lity 11-30-2024 13:29-0400 Body mass index (BMI) [Ratio] 27.79 kg/m2 Yeyo Adelaide DO Work Phone: [facility] 11-30-2024 13:29-0400 Body weight 75.75 kg Yeyo Adelaide DO Work Phone: [facility] 11-30-2024 13:29-0400 Diastolic blood pressure 76 mm[Hg] Yeyo Adelaide DO Work Phone: [facility] 11-30-2024 13:29-0400 Systolic blood pressure 110 mm[Hg] Yeyo Adelaide DO Work Phone: [facility] 05-10-2024 11:34-0400 Body mass index (BMI) [Ratio] 27.62 kg/m2 Yeyo Adelaide DO Work Phone: [facility] 05-10-2024 11:34-0400 Body weight 75.3 kg Yeyo Adelaide DO Work Phone: [facility] 05-10-2024 11:34-0400 Diastolic blood pressure 72 mm[Hg] Yeyo Adelaide DO Work Phone: [facility] 05-10-2024 11:34-0400 Systolic blood pressure 118 mm[Hg] Yeyo Adelaide DO Work Phone: [facility] Encounters Encounter Date Encounter Type Care Provider Facility Start: 11-30-2024 End: 11-30-2024 Bamboo flowsheet Yeyo Adelaide DO Work Phone: [facility] Start: 11-30-2024 End: 12-06-2024 Bamboo flowsheet Yeyo Adelaide DO Work Phone: [facility] Start: 11-30-2024 End: 12-06-2024 [facility] Result Encounter Generic External Data Provider [facility] External Department Unsolicited Start: 11-30-2024 End: 11-30-2024 Patient encounter procedure Yeyo Adelaide DO Work Phone: [facility] Start: 11-30-2024 End: 11-30-2024 Periodic preventive med est patient 18-39 yrs Yeyo Adelaide DO Work Phone: [facility] Comment on above: Well woman exam with routine gynecological exam; Pre-op examination; Request for sterilization; Family history of breast cancer in mother; Encounter for screening mammogram for malignant neoplasm of breast Start: 11-30-2024 End: 11-30-2024 Preprocedural examination done Yeyo Adelaide DO Work Phone: [facility] Start: 11-30-2024 End: 11-30-2024 ambulatory YEYO ADELAIDE Not Available Start: 05-10-2024 End: 05-10-2024 Office outpatient visit 10 minutes Yeyo Adelaide DO Work Phone: [facility] Comment on above: Pre-op examination; Request for sterilization Start: 05-10-2024 End: 05-10-2024 Preprocedural examination done Yeyo Adelaide DO Work Phone: [facility] Start: 05-10-2024 End: 05-10-2024 ambulatory YEYO ADELAIDE Not Available Start: 01-25-2024 ambulatory Fredis Graham acility:[facility] Start: 12-28-2023 End: 12-28-2023 ambulatory NICOLE MORAN Not Available Start: 12-22-2023 End: 12-22-2023 Encounter Gurvinder Wills MD Work Phone: [address] NICU Start: 12-21-2023 End: 12-21-2023 Encounter Gurvinder Wills MD Work Phone: [address] NICU Start: 12-18-2023 End: 12-18-2023 Encounter Gurvinder Wills MD Work Phone: [address] NICU Start: 12-15-2023 End: 12-15-2023 Encounter Gurvinder Wills MD Work Phone: [address] NICU Start: 12-08-2023 Encounter Gurvinder leosr MD Work Phone: [facility] Start: 12-05-2023 Encounter Gurvinder hills MD Work Phone: [facility] Start: 12-01-2023 Encounter Gurvinder Hem reinier MURILLO Work Phone: [facility] Start: 11-28-2023 Encounter Gurvinder Hem reinier MURILLO Work Phone: [address] NICU Start: 11-27-2023 Encounter Gurvinder hills MD Work Phone: [facility] Start: 11-21-2023 Encounter Gurvinder Hem reinier MURILLO Work Phone: [facility] Start: 11-17-2023 Encounter Gurvinder Hem reinier MURILLO Work Phone: [facility] Start: 11-14-2023 Encounter Gurvinder hills MD Work Phone: [facility] Start: 11-13-2023 Encounter Gurvinder Hem reinier MURILLO Work Phone: [facility] Start: 11-12-2023 Encounter Gurvinder hills MD Work Phone: [facility] Start: 11-10-2023 Encounter Gurvinder Hem reinier MURILLO Work Phone: [facility] Start: 05-14-2022 End: 05-14-[address] GURVINDER WILLS Facility: Start: 04-16-2022 End: 04-16-2022 ambulatory Ankit Castillo Other [facility] Other Start: 04-16-2022 Telephone encounter Ankit Castillo [facility] Psychiatry Start: 03-05-2022 End: 03-05-2022 ambulatory Ankit Castillo Other [facility] Other Start: 03-05-2022 Telephone encounter Ankit Castillo [facility] Psychiatry Start: 09-30-2021 End: 09-30-2021 ambulatory Ankit Anna Other [facility] Other Start: 09-30-[facility] Date Procedure Procedure Detail Performing Clinician Start: 11-30-2024 Urine test visual color cmprsn meths Nicole PEREZ Work Phone: Start: 11-30-2024 IGP,APTIMA HPV,AGE GDLN iNcole PEREZ Work Phone: Start: 07-27-2023 Microscopic observat ion [Identifier] in Cervix by Cyto stain Gurvinder Wills MD Work Phone: Plan of Treatment Date Care Activity Detail Author Start: 10-20-2033 DTaP,Tdap and Td Vaccines (2 - Td or Tdap) DTaP,Tdap and Td Vaccines (2 - Td or Tdap) [facility] Start: 07-27-2028 Screening for malign ant neoplasm of cervix [facility] Start: 07-27-2026 Screening for malign ant neoplasm of cervix Pap Smear [facility] Start: 12-29-2024 End: 12-29-2024 Patient encounter procedure 12/29/2024 2:30 PM EDT Office Visit [facility] [address] [place] [address] Nicole Moran PA [address] [place] [address] [facility] Start: 11-30-2024 End: 01-30-2026 MG Breast - bilateral Screening Bilateral screening mammogram Imaging Routine Family history of breast cancer in mother Encounter for screening mammogram for malignant neoplasm of breast Expected: 11/30/2024 (Approximate), Expires: 01/30/2026 [facility] Work Phone: Comment on above: Expected: 11/30/2024 (Approximate), Expires: 01/30/2026 Start: 11-30-2024 End: 11-30-2024 Patient encounter procedure 11/30/2024 1:20 PM EDT Office Visit [facility] [address] [id number] Yeyo Bryson, DO [address] [facility] [address], [place] [address] Arrived [facility] Comment on above: Arrived Start: 11-06-2024 Tobacco Screening Tobacco Screening [facility] Start: 10-11-2024 Adult BMI Screening Adult BMI Screen ing [facility] Start: 08-17-2024 End: 08-17-2024 Patient encounter procedure 08/17/2024 11:00 AM EST Office Visit [facility] [address] [place] [id number] Yeyo Bryson, DO [address] [facility] [address], [place] [id number] [facility] Start: 05-08-2024 Influenza vaccination [facility] Start: 05-08-2023 Influenza vaccination Influenza Vacc ine [facility] Start: 2005 Adult BMI Follow Up Plan Adult BMI Follow Up Plan [facility] Start: 1999 Depression Screening Depression Scre ening [facility] Cytology Cervical or vaginal smear or scraping study Pap Smear Pathology and Cytology Routine Well woman exam with routine gynecological exam Ordered: 11/30/2024 [facility] Work Phone: Comment on above: Ordered: 11/30/2024 Human papilloma viru s DNA [Presence] in Unspecified specimen by Probe with amplification HPV DNA probe, amplified Microbiology Routine Well woman exam with routine gynecological exam Ordered: 11/30/2024 [facility] Healthcare Comment on above: Ordered: 11/30/2024 Immunizations Immunization Date Immunization Notes Care Provider Fa cility 10-20-2023 tetanus toxoid, redu flor diphtheria toxoid, and acellular pertussis vaccine, adsorbed Gurvinder Wills MD Work Phone: [facility] Payers Date Payer Category Payer Unknown [id number] 2022 Self-pay 2015 Managed Care HMO (unspecified) RAQUEL GARCÍA [id number] 2015-Present [address] [place] [address] HMO [id number] 2015 Private Health Insurance [id number] 1987 Unknown [id number] 1987 Unknown [id number] 1987 Unknown [id number] 1987 Unknown [id number] 1959 Private Health Insurance [id number] Unknown [id number] Social History Date Type Detail Facility Unknown if ever smoked [facility] Start: 07-24-2023 End: 05-10-2024 Sex Assigned At [facility] Start: 05-30-2023 End: 10-11-2023 Tobacco smoking status NHIS Never smoked tobacco [facility] Start: 05-10-2024 End: 11-30-2024 Alcoholic beverage intake Current drinker of alcohol [...] typical day/monthly or less Caffeine: 1-2 cups/day [facility] Start: 1985 Sex assigned at Not on file [facility] Start: 10-11-2023 Tobacco use and exposure Smokeless tobacco non-user [facility] Start: 11-09-2023 Alcohol intake Lifetime non-d blaire (finding) [facility] Childcare Unknown [facility] Clinical Notes 11-10-2023 to 11-30-2024 Myra Kamara LPN - 11/30/2024 1:20 PM EDTMirameredith Millan - 05/10/2024 11:10 AM EDTLactation Note - Desiree Ocampo RN - 12/22/2023 1:27 PM EDTLactation Note - Yuli Mcgraw RN - 11/17/2023 9:00 PM EDT Note Date & Type Note Facility 11-30-2024 History of Present illness Narrative Reason for Appointment: Patient ID: Carol Bennett is a 39 y.o. female who presents for Well Women Visit and Pre-op Visit Patient presents today for Pre Op/Annual appointment. Patient is scheduled to undergo Da Bony assisted Bilateral Laparoscopic Salpingectomy on 12/23/[address] Bryson at [facility]. MEDICATIONS Current Outpatient Medications Medication Instructions FLUoxetine (PROZAC) 40 mg, Oral, Daily MV-Min-Fe Fum-FA-DHA ( 1 PO) Oral ALLERGIES [...] Moderate episode of recurrent major depressive disorder (CMS/HCC) OCD (obsessive compulsive disorder) (CMS/HCC) PMDD (premenstrual dysphoric disorder) (CMS/HCC) PTSD (post-traumatic stress disorder) (CMS/HCC) RLS (restless legs syndrome) Seasonal affective disorder (CMS/HCC) Severe episode of recurrent major depressive disorder, with psychotic features (HCC) (CMS/HCC) HISTORY PAST MEDICAL HISTORY SOCIAL HISTORY Past Medical History: Diagnosis Date POLLO positive Anxiety Chronic fatigue Current moderate episode of major depressive disorder without prior episode (HCC) (CMS/HCC) Depression (CMS/HCC) Disorder of initiating and maintaining sleep ESS (euthyroid sick syndrome) History of psychiatric hospitalization [facility] mental [facility] (02/2021), [facility] mental [facility] (09/2018) Mixed obsessional thoughts and acts (CMS/HCC) Moderate episode of recurrent major depressive disorder (CMS/HCC) OCD (obsessive compulsive disorder) (CMS/HCC) PMDD (premenstrual dysphoric disorder) (CMS/HCC) PTSD (post-traumatic stress disorder) (CMS/HCC) RLS (restless legs syndrome) Seasonal affective disorder (CMS/HCC) Severe episode of recurrent major depressive disorder, with psychotic features (HCC) (CMS/HCC) Social History Tobacco Use Smoking status: Never [...] Constitutional: Appearance: Normal appearance. She is well-developed. Genitourinary: Vulva normal. Breasts: Breasts are soft. Right: Normal. Left: Normal. Cardiovascular: Rate and Rhythm: Normal rate and [...] nursing note reviewed. Exam conducted with a stock counter present. Vitals: Estimated body mass index is 27.79 kg/m as calculated from the following: Height as of 09/10/21: 5' 5 . Weight as of this encounter: 167 lb. BP: 110/76 Patient's last menstrual period was 11/12/2024 (approximate). ASSESSMENT & PLAN ICD-10-CM 1. Well woman exam with routine gynecological exam Z01.419 Pap Smear HPV DNA probe, amplified POCT , urine manually resulted CANCELED: POCT urinalysis dipstick manually resulted 2. Pre-op examination Z01.818 3. Request for sterilization Z30.2 4. Family history of breast cancer Z80.3 Annual: Patient presents today for an annual exam. Patient states she is doing well and has no complaints. Pap was obtained without difficulty. Pt mother had breast cancer around mid-40s - pt being referred to Dr Gomez for consultation. Mammogram ordered. Pre Op: Patient is doing well but has desire for sterilization. I have discussed conservative management vs. surgical management with the patient in detail and patient desires surgical management at this time. Patient has voiced understanding that a Bilateral Salpingectomy is considered to be permanent and patient will undergo Da Bony assisted Bilateral Laparoscopic Salpingectomy on 12/23/2024. Surgical consents were signed, mmc was reviewed, and patient is to proceed to [facility] OR. Follow Up: Patient is to follow up between 1-2 weeks post operative to assess proper healing and recovery from procedure. Documented by Myra Kamara LPN on behalf of: Yeyo Bryson DO documented in this encounter [facility] 05-10-2024 History of Present illness Narrative Reason for Appointment: Patient ID: Carol Bennett is a 38 y.o. female who presents for Pre-op Visit Patient presents today for Pre Op appointment. Patient is scheduled to undergo Da Bony assisted Bilateral Laparoscopic Salpingectomy on 06/03/[address] Bryson at [facility]. MEDICATIONS Current Outpatient Medications Medication Instructions acetaminophen [...] major depressive disorder, with psychotic features (HCC) (CMS/HCC) HISTORY PAST MEDICAL HISTORY SOCIAL HISTORY Past Medical History: Diagnosis Date POLLO positive Anxiety Chronic fatigue Current moderate episode of major depressive disorder without prior episode (HCC) (CMS/HCC) Depression (CMS/HCC) Disorder of initiating and maintaining sleep ESS (euthyroid sick syndrome) History of psychiatric [place] [facility] [place] [facility] (02/2021), [facility] mental [facility] (09/2018) Mixed obsessional thoughts and acts (CMS/HCC) Moderate episode of recurrent major depressive disorder (HCC) (CMS/HCC) OCD (obsessive compulsive disorder) (CMS/HCC) PMDD (premenstrual dysphoric disorder) (CMS/HCC) PTSD (post-traumatic stress disorder) (CMS/HCC) RLS (restless legs syndrome) Seasonal affective disorder (CMS/HCC) Severe episode of recurrent major depressive disorder, with psychotic features (HCC) (CMS/HCC) Social History Tobacco Use Smoking status: Never [...] nursing note reviewed. Exam conducted with a stock counter present. Vitals: Estimated body mass index is [...] reviewed, and patient is to proceed to [facility] OR. Pt has had depression in the past- has taken prozac in the past. - pt denies suicidal and homicidal ideations. Pt will call when she desires. Follow Up: Patient is to follow up between 1-2 weeks post op to assess proper healing and recovery from procedure. Documented by Myra Kamara LPN on behalf of: nora Hayes documented in this encounter [facility] 12-22-2023 Miscellaneous Notes This note was copied from a baby's chart. Met with mother at infant's bedside. States that pumping continues to go well with stable supply and no pain or discomfort. Upon further discussion, mom unsure how much she should be attempting while in NICU. Per mom, infant seems to take bottles better and she [...] day. Limiting breast attempts can help maintain stamina while continuing to provide practice at breast. Once she's home and baby continues to grow, she can gradually add in more sessions. No further questions or concerns, encouraged to call out for any other assistance. documented in this encounter [facility] 12-22-2023 Obstetrics Note This note was copied from a baby's chart. Met with mother at 's bedside. States that pumping continues to go well with stable supply and no pain or discomfort. Upon further discussion, mom unsure how much she should be attempting while in NICU. Per mom, infant seems to take bottles better and she [...] day. Limiting breast attempts can help maintain stamina while continuing to provide practice at breast. Once she's home and baby continues to grow, she can gradually add in more sessions. No further questions or concerns, encouraged to call out for any other assistance. [facility] [place] 12-21-2023 Miscellaneous Notes This note was copied from a baby's chart. Met with mother at infants bedside. States pumping is going well and supply is stable. No complaints of pain or discomfort. Infant has reflux and speech has recommend upright feeding. Recommend upright positioning for . Per mother infant is latching well and transfers well at [...] should be done in conjunction with a telecommunications consultant. Plan: Offer breast each feed when cues for 5-10 minutes. Feeding Cues: -hands in mouth -smacking lips [...] a bottle, start gavage fed and allow to have continued access to breast. Questions answered, encouragement given. documented in this encounter [facility] 12-21-2023 Obstetrics Note This note was copied [...] should be done in conjunction with a telecommunications consultant. Plan: Offer breast each feed when cues for 5-10 minutes. Infant Feeding Cues: -hands in mouth -smacking lips -rooting -eyes open If after 5-10 minutes infant has latched allow to continue until satisfied [...] access to breast. Questions answered, encouragement given. [facility] 12-18-2023 Miscellaneous Notes This note was copied from a baby's chart. Met with mother at bedside. States pumping is going well and no pain noted with pumping. Mother has been latching and he is doing well at breast however he gets frustrated waiting for the letdown. Discussed pumping for a minute or two and then latching infant until he gets used to going to breast fully. Questions answered and support given. documented in this encounter [facility] 12-18-2023 Obstetrics Note This note was copied from a baby's chart. Met with mother at bedside. States pumping is going well and no pain noted with pumping. Mother has been latching infant and he is doing well at breast however he gets frustrated waiting for the letdown. Discussed pumping for a minute or two and then latching infant until he gets used to going to breast fully. Questions answered and support given. [facility] 12-15-2023 Miscellaneous Notes This note was copied from [...] 5-10 minutes infant does not latch but infant continues to show feeding cues, offer bottle. If after 5-10 minutes infant does not latch but does not show the feeding cues for a bottle, start gavage fed and allow infant to have continued access to breast. Questions answered, encouragement given. documented in this encounter [facility] 12-15-2023 Obstetrics Note This note was copied [...] latched-on. Plan: Offer breast each feed when infant cues for 5-10 minutes. Feeding Cues: -hands in mouth -smacking lips -rooting -eyes open If after 5-10 minutes infant has latched allow to continue until satisfied [...] 5-10 minutes infant does not latch but infant continues to show feeding cues, offer bottle. If after 5-10 minutes does not latch but does not show the feeding cues for a bottle, start gavage fed and allow infant to have continued access to breast. Questions answered, encouragement given. [facility] 12-08-2023 Miscellaneous Notes This note was copied from a baby's chart. Met with father at bedside. He states pumping is going well for mom and she is getting good amounts. Encouraged to have her call and talk to a LC if she has any questions or concerns at [phone] documented in this encounter [facility] 12-08-2023 Obstetrics Note This note was copied from a baby's chart. Met with father at bedside. He states pumping is going well for mom and she is getting good amounts. Encouraged to have her call and talk to a LC if she has any questions or concerns at [phone] [facility] 12-05-2023 Miscellaneous Notes This note was copied [...] answered, encouragement given. documented in this encounter [place] 12-05-2023 Obstetrics Note This note was copied [...] and underarm area. Questions answered, encouragement given. [facility] 12-01-2023 Miscellaneous Notes This note was copied from a baby's chart. Met with mother at 's bedside. States that pumping continues to go well with stable supply and no pain or discomfort. No current questions or concerns, encouraged to call out for any other assistance. documented in this encounter [facility] 12-01-2023 Obstetrics Note This note was copied from a baby's chart. Met with mother at infant's bedside. States that pumping continues to go well with stable supply and no pain or discomfort. No current questions or concerns, encouraged to call out for any other assistance. [facility] 11-28-2023 Miscellaneous Notes This note was copied from a baby's chart. Met with mom at 's bedside. States that pumping continues to go well, she has stable supply and denies pain or discomfort. No questions or concerns, encouraged to call out for any other assistance. documented in this encounter [facility] 11-28-2023 Obstetrics Note This note was copied from a baby's chart. Met with mom at infant's bedside. States that pumping continues to go well, she has stable supply and denies pain or discomfort. No questions or concerns, encouraged to call out for any other assistance. [facility] 11-27-2023 Miscellaneous Notes This note was copied [...] be normal, too! documented in this encounter [facility] [place] 11-27-2023 Obstetrics Note This note was copied [...] know that that can be normal, too! [facility] 11-21-2023 Miscellaneous Notes This note was copied from a baby's chart. Met with mom at 's bedside. States that pumping is going well with stable supply and denies pain or discomfort. She has been using a rental pump [facility] [employer] [facility] and is working with her insurance to see if she can get a different pump that she will be more comfortable with. No further questions or concerns, encouraged to call out for any other assistance. documented in this encounter [facility] 11-21-2023 Obstetrics Note This note was copied from a baby's chart. Met with mom at infant's bedside. States that pumping is going well with stable supply and denies pain or discomfort. She has been using a rental pump through the [facility] [employer] [facility] and is working with her insurance to see if she can get a different pump that she will be more comfortable with. No further questions or concerns, encouraged to call out for any other assistance. [facility] 11-17-2023 Miscellaneous Notes This note was copied [...] assistance. Support given. documented in this encounter [facility] 11-17-2023 Obstetrics Note This note was copied from a baby's chart. Met with mother at 's bedside. States pumping is going well without any pain or discomfort. States 28 mm flange feels better and blisters have improved. She is getting about 170 ml every three hours. Denies any questions or concerns at this time. Encouraged to call out with any assistance. Support given. [facility] 11-14-2023 Miscellaneous Notes This note was copied from a baby's chart. Met with mother at infant's bedside. Stated she will be staying at [facility] and had concerns she would not have access to a pump as her rental pump is at her home one hour away. Discussed how [facility] should provide her with a hospital grade breast pump to her room upon request. Encouraged to reach out to if she has any issues and we can provide a pump. Questions answered and support given. documented in this encounter [facility] 11-14-2023 Obstetrics Note This note was copied from a baby's chart. Met with mother at infant's bedside. Stated she will be staying at [facility] and had concerns she would not have access to a pump as her rental pump is at her home one hour away. Discussed how [facility] should provide her with a hospital grade breast pump to her room upon request. Encouraged to reach out to if she has any issues and we can provide a pump. Questions answered and support given. [facility] 11-13-2023 Miscellaneous Notes This note was copied [...] any other assistance. documented in this encounter [facility] 11-13-2023 Obstetrics Note This note was copied from a baby's chart. Met with mother at 's bedside. States that she continues pumping and [...] to call out for any other assistance. [facility] 11-12-2023 Miscellaneous Notes This note was copied [...] any other assistance. documented in this encounter [facility] 11-12-2023 Obstetrics Note This note was copied [...] to call out for any other assistance. [facility]10[facility]2023 Miscellaneous Notes This note was copied from a baby's chart. Met with mother at infants bedside. States pumping is going well and supply is increasing. Mother is getting 60-70mls every 2-3 hours. Reinforced pumping guidelines and importance of pumping how eats. Encouraged pumping every 2-3 hours for [...] answered, encouragement given. documented in this encounter [facility] 11-10-2023 Obstetrics Note This note was copied [...] pump and rental. Questions answered, encouragement given. [facility] [employer] Evaluation note No Information [facility] [employer] Other Evaluation note Diagnosis Pre-op examination Request for sterilization [facility] Diagnosis Well woman exam with routine gynecological exam Routine gynecological examination Pre-op examination Request for sterilization Family history of breast cancer in mother Family history of malignant neoplasm of breast Encounter for screening mammogram for malignant neoplasm of breast documented [facility] this [facility] Narrative - Reported* Type Description Date Medical History Anxiety Ocision Other InstructionsNot on filedocumented in this encounter [facility] on filedocumented in this [facility] Summary Purpose Family History No Family History [...] section and content) Reason Comments Pre-op Visit Reason Comments Well Women Visit Pre-op Visit INFORMATION SOURCE (unrecogn ized section and content) DATE CREATED AUTHOR 05/20/2022 [facility] DATE CREATED AUTHOR AUTHOR'S ORGANIZ ATION 05/21/2022 [facility] Special[facility] DATE CREATED AUTHOR AUTHOR'S ORGANIZ ATION 02/10/2024 [facility] DATE CREATED AUTHOR AUTHOR'S ORGANIZ ATION 12/01/2024 [facility] dical Specialists [employer] Care Teams (unrecognized sec tion and content) Assembly Instructions Writer Relationship Specialty Start Date End Date Gurvinder Wills MD [address] [place] [address] (Fax) PCP - General Family Medicine 01/13/23 [employer] Instructions Writer Relationship Specialty Start Date End Date Gurvinder Wills MD [address] [place] [address] (Fax) PCP - General Family Medicine 10/12/23 Assembly Instructions Writer Relationship Specialty Start Date End Date Gurvinder Wills MD [address] [place] [address] (Fax) PCP - General Family Medicine 10/12/23 Assembly Instructions Writer Relationship Specialty Start Date End Date Gurvinder Wills MD [address] [facility] [address] [place] [address] (Fax) PCP - General Family Medicine 01/13/23 Assembly Instructions Writer Relationship Specialty Start Date End Date Gurvinder Wills MD [address] [facility] [address] [place] [address] (Fax) PCP - General Family Medicine 01/13/23 Assembly Instructions Writer Relationship Specialty Start Date End Date Gurvinder Wills MD [address] [facility] [address] [place] [address] (Fax) PCP - General Family Medicine 01/13/23 FOR [...] BE BASED ON THE PRIMARY CLINICAL RECORDS. [facility] [employer] [facility]. provides no warranty or guarantee of the accuracy or completeness of information in this document.
== END 2024-12-12 10:00 | disposition home or self-care (01) ==
PROVIDERS: PCP Family Medicine; Visit Provider Obstetrics & Gynecology
DX: Z01.818 Encounter for other preprocedural examination (principal)

== ENCOUNTER 2024-12-23 07:34 | Day surgery (SDC) | payer OTHER, SELFPAY ==
[2024-12-12 10:36] VITALS: BP 114/76; PULSE 64; TEMP 36.3; O2SAT 98; BMI 27.7
[2024-12-23] VITALS (14 sets, daily range): BP systolic 102–123; BP diastolic 68–84; PULSE 70–109; TEMP 36.2–36.8; O2SAT 93–100; BMI 27.7
--- OUTSIDE RECORDS SUMMARY | 2024-12-23 07:39 | XMS_ITS | CCD ---
Author Organization [facility] Care Team Providers Care Legger Press Operator Name Role Phone Ankit Castillo Unavailable DR GURVINDER WILLS Primary Care Unavailable ADELAIDE, DR ORONA Attending Unavailable ADELAIDE, DR ORONA Consulting Unavailable DR YEYO BRYSON Admitting Unavailable Fredis Hernandes Attending UnavailFredis Mora Admitting Unavailab Gurvinder Conde Primary Care Unavailable Gurvinder Wills MD Primary Care Provider Gurvinder Wills MD Primary Care Provider Gurvinder Wills MD Primary Care Provider YEYO [...] GDLNon AGE GDLN ACOG TESTING Note . [facility] Comment on above: TESTS RESULT FLAG UN ITS REF RANGE LAB Clinician Provided Cytology Information Source.............Cervix;Endocervix No. of containers..01 ThinPrep Vial Age Algo ACOG Janae... 32 FLAG LEGEND: L-Low Normal,H-High Normal,LL-Alert Low,HH-Alert High <-Panic Low,>-Panic High,A-Abnormal,AA-Critical Abnormal Performed at: 01 =G [address] [place] [address] Calli Rodriguez MD, HPV APTIMA Negative Negative [facility] Comment on above: This nucleic acid am plification test detects fourteen high- risk HPV types (16,18,31,33,35,39,45,51,52,56,58,59,66,68) without differentiation. Performed at: =G - [facility], [place] [id number] Senior Software Systems Engineer: Calli Rodriguez MD, Phone: [phone] Performed at: - [address], [place] [id number] Senior Software Systems Engineer: Calli Rodriguez MD, Phone: [phone] IGP, APTIMA HPV, RFX 16/18,[address] [facility] Comment on above: TESTS RESULT FLAG UN ITS REF RANGE LAB DIAGNOSIS: 02 NEGATIVE FOR INTRAEPITHELIAL LESION OR MALIGNANCY. THIS SPECIMEN WAS RESCREENED PART OF OUR GROUP SUPERVISOR YARD PROGRAM. Specimen adequacy: 02 Satisfactory for evaluation. Endocervical and/or squamous metaplastic cells (endocervical component) are present. Performed by: 02 Debora Rush, Physician Office Secretary (ASCP) QC reviewed by: Jerica Monteiro Physician Office Secretary (ASCP) . 02 Note: Note 02 The [...] High,A-Abnormal,AA-Critical Abnormal Performed at: 02 WB [facility] [address] [place] [address] Calli Rodriguez MD, BRUSH-SPATULA CERVIX ENDOCERVIX [facility] HCG ( test) Ql (U)o n 11-30-2024 Interpretation and review of laboratory results Normal [facility] Healthcare Preg Test, Ur Negative Negative [facility] care [facility] PAP ACOG PANEL 2: 30 to 65on 05-20-2022 . . Normal [facility] Comment on above: Result Comment: Perf ormed at: WB Performed By: #### [id number] #### [facility] [address] [place] [address] Dr. Beth Gutierrez Age Gdln ACOG Testing 30-[address] [facility] Comment on above: Performed By: #### [id number] #### [facility] [address] [address] [address] Beth Gutierrez DIAGNOSIS: Comment Normal [facility] Comment on above: Result Comment: NEGA TIVE FOR INTRAEPITHELIAL LESION OR MALIGNANCY. Performed at: WB Performed By: #### [id number] #### [facility] [address] [address] [address] Beth Gutierrez HPV Aptima Negative Normal Negative [facility] Comment on above: Result Comment: This nucleic acid amplification test detects fourteen high-risk HPV types (16,18,31,33,35,39,45,51,52,56,58,59,66,68) without differentiation. Performed at: =G Performed By: #### [id number] #### [facility] [address] [place] [address] Dr. Beth Gutierrez Methodology: Comment Normal [facility] Comment on above: Result Comment: This liquid based ThinPrep(R) pap test was screened with the use of an image guided system. Performed at: WB Performed By: #### [id number] #### [facility] [address] [place] [address] Dr. Beth Gutierrez Note: Comment Normal [facility] Comment on above: Result Comment: The Pap smear is a screening test designed to aid in the detection of premalignant and malignant conditions of the uterine cervix. It is not a diagnostic procedure and should not be used as the sole means of detecting cervical cancer. Both false-positive and false-negative reports do occur. . Performed at: WB Performed By: #### [id number] #### [facility] [address] [place] [address] Dr. Beth Gutierrez Performed by: Comment Normal [facility] Comment on above: Result Comment: Mimi Lomas, Physician Office Secretary (ASCP) Performed at: WB Performed By: #### [id number] #### [facility] [address] [place] [address] Dr. Beth Gutierrez Specimen adequacy: Comment Normal [facility] Comment on above: Result Comment: Sati sfactory for evaluation. No endocervical component is identified. Performed at: WB Performed By: #### [id number] #### [facility] [address] [place] [address] Dr. Beth Gutierrez XR Hand Complete Left*on [...] by Bernard Cheng on 05/20/2022 1222 Normal [facility] Licensed Acupuncturist Vital Signs Date Time Vital Sign Value Performing Clinician Faci lity 11-30-2024 13:29-0400 Body mass index (BMI) [Ratio] 27.79 kg/m2 Yeyo Adelaide DO Work Phone: [facility] 11-30-2024 13:29-0400 Body weight 75.75 kg Yeyo Adelaide DO Work Phone: [facility] 11-30-2024 13:29-0400 Diastolic blood pressure 76 mm[Hg] Yeyo Adelaide DO Work Phone: [facility] 11-30-2024 13:29-0400 Systolic blood pressure 110 mm[Hg] Yeyo Adelaide DO Work Phone: [facility] 05-10-2024 11:34-0400 Body mass index (BMI) [Ratio] 27.62 kg/m2 Yeyo Adelaide DO Work Phone: [facility] 05-10-2024 11:34-0400 Body weight 75.3 kg Yeyo Adelaide DO Work Phone: [facility] 05-10-2024 11:34-0400 Diastolic blood pressure 72 mm[Hg] Yeyo Adelaide DO Work Phone: [facility] 05-10-2024 11:34-0400 Systolic blood pressure 118 mm[Hg] Yeyo Adelaide DO Work Phone: [facility] Healthcare Encounters Encounter Date Encounter Type Care Provider Facility Start: 11-30-2024 End: 11-30-2024 Bamboo flowsheet Yeyo Adelaide DO Work Phone: [facility] Start: 11-30-2024 End: 12-06-2024 Bamboo flowsheet Yeyo Adelaide DO Work Phone: [facility] Start: 11-30-2024 End: 12-06-2024 [facility] Result Encounter Generic External Data Provider [facility] External Department Unsolicited Start: 11-30-2024 End: 11-30-2024 Patient encounter procedure Yeyo Adelaide DO Work Phone: [facility] Start: 11-30-2024 End: 11-30-2024 Periodic preventive med est patient 18-39 yrs Yeyo Adelaide DO Work Phone: [facility] Comment on above: Well woman exam with routine gynecological exam; Pre-op examination; Request for sterilization; Family history of breast cancer in mother; Encounter for screening mammogram for malignant neoplasm of breast Start: 11-30-2024 End: 11-30-2024 Preprocedural examination done Yeyo Adelaide DO Work Phone: [facility] Start: 11-30-2024 End: 11-30-2024 ambulatory YEYO ADELAIDE Not Available Start: 05-10-2024 End: 05-10-2024 Office outpatient visit 10 minutes Yeyo Adelaide DO Work Phone: [facility] Comment on above: Pre-op examination; Request for sterilization Start: 05-10-2024 End: 05-10-2024 Preprocedural examination done Yeyo Adelaide DO Work Phone: [facility] Start: 05-10-2024 End: 05-10-2024 ambulatory YEYO ADELAIDE Not Available Start: 01-25-2024 ambulatory Fredis Graham acility:[facility] Start: 12-28-2023 End: 12-28-2023 ambulatory NICOLE MORAN Not Available Start: 12-22-2023 End: 12-22-2023 Encounter Gurvinder Wills MD Work Phone: [address] NICU Start: 12-21-2023 End: 12-21-2023 Encounter Gurvinder Wills MD Work Phone: [address] NICU Start: 12-18-2023 End: 12-18-2023 Encounter Gurvinder Wills MD Work Phone: [address] NICU Start: 12-15-2023 End: 12-15-2023 Encounter Gurvinder Wills MD Work Phone: [address] NICU Start: 12-08-2023 Encounter Gurvinder leosr MD Work Phone: [facility] 3E NICU Start: 12-05-2023 Encounter Gurvinder hills MD Work Phone: [facility] 3E NICU Start: 12-01-2023 Encounter Gurvinder Hem reinier UMRILLO Work Phone: [facility] 3E NICU Start: 11-28-2023 Encounter Gurvinder Hem reinier MURILLO Work Phone: [address] NICU Start: 11-27-2023 Encounter Gurvinder hills MD Work Phone: [facility] 3E NICU Start: 11-21-2023 Encounter Gurvinder Hem reinier MURILLO Work Phone: [facility] 3E NICU Start: 11-17-2023 Encounter Gurvinder Hem reinier MURILLO Work Phone: [facility] 3W NICU Start: 11-14-2023 Encounter Gurvinder hills MD Work Phone: [facility] 3W NICU Start: 11-13-2023 Encounter Gurvinder Hem reinier MURILLO Work Phone: [facility] 3W NICU Start: 11-12-2023 Encounter Gurvinder hills MD Work Phone: [facility] 3W NICU Start: 11-10-2023 Encounter Gurvinder Hem reinier MURILLO Work Phone: [facility] 3W NICU Start: 05-14-2022 End: 05-14-[address] GURVINDER WILLS Facility: Start: 04-16-2022 End: 04-16-2022 ambulatory Ankit Castillo Other [facility] Other Start: 04-16-2022 Telephone encounter Ankit Castillo [facility] Start: 03-05-2022 End: 03-05-2022 ambulatory Ankit Castillo Other [facility] Other Start: 03-05-2022 Telephone encounter Ankit Castillo [facility] Start: 09-30-2021 End: 09-30-2021 ambulatory Ankit Anna Other [facility] Other Start: 09-30-2021 [facility] Date Procedure Procedure Detail Performing Clinician Start: 11-30-2024 Urine test visual color cmprsn meths Nicole PEREZ Work Phone: Start: 11-30-2024 IGP,APTIMA HPV,AGE GDLN Nicole PEREZ Work Phone: Start: 07-27-2023 Microscopic observat ion [Identifier] in Cervix by Cyto stain Gurvinder Wills MD Work Phone: Plan of Treatment Date Care Activity Detail Author Start: 10-20-2033 DTaP,Tdap and Td Vaccines (2 - Td or Tdap) DTaP,Tdap and Td Vaccines (2 - Td or Tdap) [facility] Start: 07-27-2028 Screening for malign ant neoplasm of cervix [facility] Start: 07-27-2026 Screening for malign ant neoplasm of cervix Pap Smear [facility] Start: 12-29-2024 End: 12-29-2024 Patient encounter procedure 12/29/2024 2:30 PM EDT Office Visit [facility] [address] [place] [address] Nicole Moran PA [address] [place] [address] [facility] Start: 11-30-2024 End: 01-30-2026 [...] EDT Office Visit [facility] [address] [place] [id number] Yeyo Bryson, DO [address] [place], [place] [address] Arrived [facility] Comment on above: Arrived Start: 11-06-2024 Tobacco Screening Tobacco Screening [facility] Start: 10-11-2024 Adult BMI Screening Adult BMI Screen ing [facility] Start: 08-17-2024 End: 08-17-2024 Patient encounter procedure 08/17/2024 11:00 AM EST Office Visit [facility] [address] [place] [id number] Yeyo Bryson, DO [address] [place] [place], [place] [id number] [facility] Start: 05-08-2024 Influenza vaccination [facility] Start: 05-08-2023 Influenza vaccination Influenza Vacc ine [facility] Start: 2005 Adult BMI Follow Up Plan Adult BMI Follow Up Plan [facility] Start: 1999 Depression Screening Depression Scre ening [facility] Cytology Cervical or vaginal smear or scraping study Pap Smear Pathology and Cytology Routine Well woman exam with routine gynecological exam Ordered: 11/30/2024 [facility] Work Phone: Comment on above: Ordered: 11/30/2024 Human papilloma viru s DNA [Presence] in Unspecified specimen by Probe with amplification HPV DNA probe, amplified Microbiology Routine Well woman exam with routine gynecological exam Ordered: 11/30/2024 [facility] Comment on above: Ordered: 11/30/2024 Immunizations Immunization Date Immunization Notes Care Provider Fa cility 10-20-2023 tetanus toxoid, redu flor diphtheria toxoid, and acellular pertussis vaccine, adsorbed Gurvinder Wills MD Work Phone: [facility] Payers Date Payer Category Payer Unknown [id number] 2022 Self-pay 2015 Managed Care HMO (unspecified) RAQUEL GARCÍA [id number] 2015-Present [address] [place] [address] HMO [id number] 2015 Private Health Insurance [id number] 1987 Unknown [id number] 1987 Unknown [id number] 1987 Unknown [id number] 1987 Unknown [id number] 259 1959 Private Health Insurance [id number] Unknown [id number] 31 Social History Date Type Detail Facility Unknown if ever smoked [facility] Other Start: 07-24-2023 End: 05-10-2024 Sex Assigned [...] Sex assigned at Not on file [facility] Start: 10-11-2023 Tobacco use and exposure Smokeless tobacco non-user [facility] Start: 11-09-2023 Alcohol intake Lifetime non-d blaire (finding) [facility] Childcare Unknown [facility] Clinical Notes 11-10-2023 to 11-30-2024 Myra [...] on 12/23/[address] Bryson at [facility]. MEDICATIONS Current Outpatient Medications Medication Instructions FLUoxetine [...] (euthyroid sick syndrome) History of psychiatric hospitalization [facility] 6 days mental health (02/2021), [facility] 5 days mental health (09/2018) Mixed obsessional [...] nursing note reviewed. Exam conducted with a truck sales manager present. Vitals: Estimated body mass index is [...] reviewed, and patient is to proceed to [facility] OR. Follow Up: Patient is to follow up between 1-2 weeks post operative to assess proper healing and recovery from procedure. Documented by Myra Kamara LPN on behalf of: Yeyo Bryson DO documented in this encounter [facility] 05-10-2024 History of Present illness Narrative Reason for Appointment: Patient ID: Carol Bennett is a 38 y.o. female who presents for Pre-op Visit Patient presents today for Pre Op appointment. Patient is scheduled to undergo Da Bony assisted Bilateral Laparoscopic Salpingectomy on 06/03/[address] Bryson at [facility]. MEDICATIONS Current Outpatient Medications Medication Instructions [...] (euthyroid sick syndrome) History of psychiatric hospitalization [facility] 6 days mental health (02/2021), [facility] 5 days mental health (09/2018) Mixed obsessional [...] nursing note reviewed. Exam conducted with a truck sales manager present. Vitals: Estimated body mass index is [...] reviewed, and patient is to proceed to [facility] OR. Pt has had depression in the past- has taken prozac in the past. - pt denies suicidal and homicidal ideations. Pt will call when she desires. Follow Up: Patient is to follow up between 1-2 weeks post op to assess proper healing and recovery from procedure. Documented by Myra Kamara LPN on behalf of: nora Hayes documented in this encounter [facility] 12-22-2023 Miscellaneous Notes This note was [...] any other assistance. documented in this encounter [facility] 12-22-2023 Obstetrics Note This note was copied [...] to call out for any other assistance. [facility] 12-21-2023 Miscellaneous Notes This note was copied [...] should be done in conjunction with a client care consultant. Plan: Offer breast each feed when [...] answered, encouragement given. documented in this encounter [facility] 12-21-2023 Obstetrics Note This note was copied [...] should be done in conjunction with a client care consultant. Plan: Offer breast each feed when [...] access to breast. Questions answered, encouragement given. [facility] 12-18-2023 Miscellaneous Notes This note was copied [...] and support given. documented in this encounter [facility] 12-18-2023 Obstetrics Note This note was copied [...] breast fully. Questions answered and support given. [facility] 12-15-2023 Miscellaneous Notes This note was copied [...] answered, encouragement given. documented in this encounter [facility] 12-15-2023 Obstetrics Note This note was copied [...] access to breast. Questions answered, encouragement given. [facility] 12-08-2023 Miscellaneous Notes This note was copied from a baby's chart. Met with father at bedside. He states pumping is going well for mom and she is getting good amounts. Encouraged to have her call and talk to a LC if she has any questions or concerns at [phone] documented in this encounter [facility] 12-08-2023 Obstetrics Note This note was copied from a baby's chart. Met with father at bedside. He states pumping is going well for mom and she is getting good amounts. Encouraged to have her call and talk to a LC if she has any questions or concerns at [phone] [facility] 12-05-2023 Miscellaneous Notes This note was copied [...] answered, encouragement given. documented in this encounter [employer] 12-05-2023 Obstetrics Note This note was copied [...] and underarm area. Questions answered, encouragement given. [facility] 12-01-2023 Miscellaneous Notes This note was copied from a baby's chart. Met with mother at 's bedside. States that pumping continues to go well with stable supply and no pain or discomfort. No current questions or concerns, encouraged to call out for any other assistance. documented in this encounter [facility] 12-01-2023 Obstetrics Note This note was copied from a baby's chart. Met with mother at 's bedside. States that pumping continues to go well with stable supply and no pain or discomfort. No current questions or concerns, encouraged to call out for any other assistance. [facility] 11-28-2023 Miscellaneous Notes This note was copied from a baby's chart. Met with mom at 's bedside. States that pumping continues to go well, she has stable supply and denies pain or discomfort. No questions or concerns, encouraged to call out for any other assistance. documented in this encounter [facility] 11-28-2023 Obstetrics Note This note was copied from a baby's chart. Met with mom at 's bedside. States that pumping continues to go well, she has stable supply and denies pain or discomfort. No questions or concerns, encouraged to call out for any other assistance. [facility] 11-27-2023 Miscellaneous Notes This note was copied [...] be normal, too! documented in this encounter [facility] 11-27-2023 Obstetrics Note This note was copied [...] know that that can be normal, too! [facility] 11-21-2023 Miscellaneous Notes This note was copied from a baby's chart. Met with mom at 's bedside. States that pumping is going well with stable supply and denies pain or discomfort. She has been using a rental pump through the [facility] [employer] [facility] and is working with her insurance to see if she can get a different pump that she will be more comfortable with. No further questions or concerns, encouraged to call out for any other assistance. documented in this encounter [facility] 11-21-2023 Obstetrics Note This note was copied from a baby's chart. Met with mom at infant's bedside. States that pumping is going well with stable supply and denies pain or discomfort. She has been using a rental pump through the [facility] [employer] [facility] and is working with her insurance to see if she can get a different pump that she will be more comfortable with. No further questions or concerns, encouraged to call out for any other assistance. [facility] 11-17-2023 Miscellaneous Notes This note was copied [...] assistance. Support given. documented in this encounter [facility] 11-17-2023 Obstetrics Note This note was copied from a baby's chart. Met with mother at 's bedside. States pumping is going well without any pain or discomfort. States 28 mm flange feels better and blisters have improved. She is getting about 170 ml every three hours. Denies any questions or concerns at this time. Encouraged to call out with any assistance. Support given. [facility] 11-14-2023 Miscellaneous Notes This note was copied from a baby's chart. Met with mother at infant's bedside. Stated she will be staying at [facility] and had concerns she would not have access to a pump as her rental pump is at her home one hour away. Discussed how [facility] should provide her with a hospital grade breast pump to her room upon request. Encouraged to reach out to if she has any issues and we can provide a pump. Questions answered and support given. documented in this encounter [facility] 11-14-2023 Obstetrics Note This note was copied from a baby's chart. Met with mother at infant's bedside. Stated she will be staying at [facility] and had concerns she would not have access to a pump as her rental pump is at her home one hour away. Discussed how [facility] should provide her with a hospital grade breast pump to her room upon request. Encouraged to reach out to if she has any issues and we can provide a pump. Questions answered and support given. [facility] 11-13-2023 Miscellaneous Notes This note was copied [...] any other assistance. documented in this encounter [facility] 11-13-2023 Obstetrics Note This note was copied [...] to call out for any other assistance. [facility] 11-12-2023 Miscellaneous Notes This note was [...] any other assistance. documented in this encounter [facility] 11-12-2023 Obstetrics Note This note was copied [...] to call out for any other assistance. [facility] 11-10-2023 Miscellaneous Notes This note was copied [...] answered, encouragement given. documented in this encounter [facility] 11-10-2023 Obstetrics Note This note was copied [...] pump and rental. Questions answered, encouragement given. [facility] [employer] Evaluation note No Information [facility] [employer] Other Evaluation note Diagnosis Pre-op examination Request [...] Reported* Type Description Date Medical History Anxiety YupiCall Other InstructionsNot on filedocumented in this encounter ProMedicAsterion SystemInstructionsNot on filedocumented in this encounter [facility] Summary Purpose Family History No Family [...] DATE CREATED AUTHOR AUTHOR'S ORGANIZ ATION 05/21/2022 [facility] Me dical Specialist DATE CREATED AUTHOR AUTHOR'S ORGANIZ ATION 02/10/2024 [facility] ysician Group DATE CREATED AUTHOR AUTHOR'S ORGANIZ ATION 12/01/2024 [facility] dical Specialists EPIC Care Teams (unrecognized sec tion and content) Legger Press Operator Relationship Specialty Start Date End Date Gurvinder Wills MD [address] [place] [address] (Fax) PCP - General Family Medicine 01/13/23 [employer]ger Press Operator Relationship Specialty Start Date End Date Gurvinder Wills MD [address] [place] [address] (Fax) PCP - General Family Medicine 10/12/23 [employer]ger Press Operator Relationship Specialty Start Date End Date Gurvinder Wills MD [address] [place] [address] (Fax) PCP - General Family Medicine 10/12/23 Legger Press Operator Relationship Specialty Start Date End Date Gurvinder Wills MD [address] [facility] [address] [place] [address] (Fax) PCP - General Family Medicine 01/13/23 Legger Press Operator Relationship Specialty Start Date End Date Gurvinder Wills MD [address] [facility] [address] [place] [address] (Fax) PCP - General Family Medicine 01/13/23 Legger Press Operator Relationship Specialty Start Date End Date Gurvinder Wills MD [address] [facility] [address] [place] [address] (Fax) PCP - General Family Medicine 01/13/23 [...] BE BASED ON THE PRIMARY CLINICAL RECORDS. [facility] [employer] [facility] provides no warranty or guarantee of the accuracy or completeness of information in this document.
[2024-12-23 07:44] LABS: Basophils Absolute Auto 0.1 10^3/uL (0.0-0.1); Basophils Percent Auto 0.6 % (0.2-2.0); Eosinophils Absolute Auto 0.5 10^3/uL (0.0-0.7); Eosinophils Percent Auto 5.7 % (0.9-7.0); Hematocrit 41.1 % (36.0-48.0); Hemoglobin 13.9 g/dL (12.0-16.0); Immature Granulocytes Abs Auto 0.01 10^3/uL (0.00-0.03); Immature Granulocytes Pct Auto 0.1 % (0.0-0.5); Lymphocytes Absolute Auto 2.5 10^3/uL (1.2-3.8); Mean Corpuscular HGB Conc 33.8 g/dL (29.9-35.2); Mean Corpuscular Hemoglobin 29.6 pg (26.7-34.0); Mean Corpuscular Volume 87.4 fL (81.0-99.0); Mean Platelet Volume 10.7 fL (9.5-13.5); Monocytes Absolute Auto 0.6 10^3/uL (0.3-0.8); Monocytes Percent Auto 7.3 % (1.7-12.0); Neutrophils Absolute Auto 5.1 10^3/uL (1.4-6.5); Neutrophils Percent Auto 58.3 % (43.0-75.0); Platelet Count 292 10^3/uL (150-450); Red Cell Distribution Width 13.1 % (11.0-15.0); White Blood Count 8.7 10^3/uL (4.0-11.0)
[2024-12-23] MEDS: LACTATED RINGER'S SOLUTION 1,000 ML 50 ML IV ×3 (08:06→12:59)
[2024-12-23 08:13] LABS: HCG Quantitative <1 mIU/mL
--- NOTE | 2024-12-23 10:23 | PM.ONB ---
Brief Operative Note Date of procedure: 12/23/24 Pre-op diagnosis general: desires permanent sterilization Post-op diagnosis: same as pre-op Procedure: NAME OF PROCEDURE: robotic assisted bilateral laparoscopic salpingectomy PROCEDURE: The patient was taken back to the Operating Room where she was given general anesthesia without difficulty. She was then prepped and draped in the normal sterile fashion after being placed in a dorsal lithotomy position. A wet sponge stick was placed into the patient's vagina. Attention was then turned to the patient's abdomen, where a scalpel was used to make a small infraumbilical incision. The S retractors were then used to dissect the underlying layers until the fascia could be seen. The fascia was then grasped with Petra clamps and tented up. A knife was then used to make a small incision to the fascia. The muscle was identified, at that time two sutures of #0 Vicryl on a GI needle was then used and placed through the fascia. the peritoneum was then identified and entered bluntly. The 10-4 Marcel was then placed into the patient's abdomen. This was confirmed with direct visualization of the bowel, using the laparoscope. The patient's abdomen was then insufflated using approximately 4 liters of CO2 gas. Survey of the patient's abdomen demonstrated ovaries were normal in appearance as well as both tubes and uterus. A second and third rt and lt lateral robotic ports which were 8 mm in size, was then placed after the skin incision was made under direct visualization . the robotic arms were engaged. The patient's tube on the patient's right side was identified and tented up using a grasper, the ligasure apparatus was then used to come across the mesosalpingx from the fimbriated end to the insertion site at the uterus, the tube was then amputated and removed in its entirety. This was done on the contralateral side. The tubes were the removed from the patients abdomen. Excellent hemostasis was noted. The lateral ports were then moved under direct visualization with excellent hemostasis. All instruments were removed from the patient's abdomen. The fascia was closed using the #0 Vicryl on GI needle. The skin was closed using 4-0 Vicryl subcuticularly. All instruments were removed from the patient's vagina as well. The patient was taken out of the dorsal lithotomy position and placed in the supine position and taken to recovery in stable condition. Sponge, lap and needle counts were correct x2. Anesthesia: GETA Surgeon: Yazan Bryson Water Control Station Engineer: Tiffanie Bertrand Estimated blood loss (mL): 5 Pathology: other (tubes) Condition: stable Disposition: PACU Urinary Catheter Management Urinary Catheter Management Urethral: Cath placed during this visit: no
[2024-12-23] MEDS: ACETAMINOPHEN 500 MG TABLET 1000 MG PO (12:58)
--- NOTE | 2024-12-23 14:16 | PC.NURSE ---
1405: pt bladder scanned at this time for 105mls. pt wishes to continue with hydration and does not want to be straight cathed at this time.
--- NOTE | 2024-12-23 15:08 | PC.NURSE ---
1435: per 's order pt straight cathed for 175mls of cloudy,yellow urine. pt educated on hydration and to return to the ER if she is unable to void or has severe pain.
== END 2024-12-23 14:50 | disposition home or self-care (01) ==
PROVIDERS: PCP Family Medicine; Visit Provider Obstetrics & Gynecology
PROC: (CPT 840; principal; 2024-12-23 08:55)
DX: Z30.2 Encounter for sterilization (principal)
CPT/HCPCS: 58661; 36415; 51798; 84702; 85025; 88302; J1200; J1885; J2250; J2405; J2704; J3010

== ENCOUNTER 2024-12-27 07:55 | Outpatient (RCR) | payer OTHER, SELFPAY | END 2024-12-28 08:10 | disposition home or self-care (01) | LOC: HEMC 07:55 | PROVIDERS: PCP Family Medicine; Visit Provider Internal Medicine Hematology & Oncology | DX: Z15.09 Genetic susceptibility to other malignant neoplasm (principal); Z80.9 Family history of malignant neoplasm, unspecified; Z80.3 Family history of malignant neoplasm of breast; Z98.51 Tubal ligation status | CPT/HCPCS: G0463 ==

== ENCOUNTER 2025-01-24 07:48 | Outpatient (RCR) | payer OTHER, SELFPAY | END 2025-01-25 08:05 | disposition home or self-care (01) | LOC: HEMC 07:48 | PROVIDERS: PCP Family Medicine; Visit Provider Internal Medicine Hematology & Oncology | DX: Z15.09 Genetic susceptibility to other malignant neoplasm (principal); Z80.3 Family history of malignant neoplasm of breast; Z80.8 Family history of malignant neoplasm of other organs or systems | CPT/HCPCS: G0463 ==

== ENCOUNTER 2025-08-14 04:11 | Emergency (ER) | payer OTHER, SELFPAY ==
--- OUTSIDE RECORDS SUMMARY | 2024-12-27 06:30 | XMS_ITS ---
Author Organization [facility] in [place] Address [address] [place] [address] Care Team Providers Care Home Performance Consultant Name Role Phone Gurvinder Romo MD Primary Care Provider Unavail able Wendy Collins Unavailable [phone] REASON FOR VISIT MD New PT Hem Encounters Encounter Location Date Provider Diagnosis [facility] [address] [place] [phone] 12/27/2024 Wendy Collins Plan Of Treatment No Information Progress Notes * MARCIALSonnyOB:1985 (39 yo F)Acc No.[id number]:12/27/2024 UNLOCKED PROGRESS NOTE Progress Notes Patient: Carol GASTON :?Wendy Gomez M.D.:1985???Age:39 Y ???Sex:FemaleDate:12/27/2024Phone:[phone]:[address] [place] [phone]:Gurvinder Romo MD Subjective: * Chief Complaints: * 1 . New PT Hem. * Medical History: Objective: * Vitals: Assessment: Plan: * Treatment: * * Electronic signature of Wendy Collins MD, [id number] on 08/14/2025 at 05:16 AM ESTSign off status: PendingVisit Status:?PEN (Pending) * Provider: Garry Gomez M.D. Date: 0 12/27/2024 Generated for Printing/Faxing/eTransmitting on:?08/14/2025 05:16 AM EST
--- OUTSIDE RECORDS SUMMARY | 2024-12-27 10:00 | XMS_ITS ---
Author Organization [facility] in [place] Address [address] [place] [address] Care Team Providers Care Health Safety Specialist Name Role Phone Gurvinder Romo MD Primary Care Provider Unavail able Wendy Collins Unavailable [phone] REASON FOR VISIT MD New PT Hem Encounters Encounter Location Date Provider Diagnosis [facility] [address] [place] [phone] 12/27/2024 Wendy Collins Plan Of Treatment No Information Progress Notes * MARCIALSonnyOB:1985 (39 yo F)Acc No.[id number]:12/27/2024 UNLOCKED PROGRESS NOTE Progress Notes Patient: Carol GASTON :?Wendy Gomez M.D.:1985???Age:39 Y ???Sex:FemaleDate:12/27/2024Phone:[phone]:[address] [place] [phone]:Gurvinder Romo MD Subjective: * Chief Complaints: * 1 . New PT Hem. * Medical History: Objective: * Vitals: Assessment: Plan: * Treatment: * * Electronic signature of Wendy Collins MD, [id number] on 08/14/2025 at 05:16 AM ESTSign off status: PendingVisit Status:?CANC (Cancelled) * Provider: Garry Gomez M.D. Date: 0 12/27/2024 Generated for Printing/Faxing/eTransmitting on:?08/14/2025 05:16 AM EST
--- OUTSIDE RECORDS SUMMARY | 2025-01-24 06:00 | XMS_ITS ---
Author Organization The [facility] in [place] Address [address] [place] [address] Care Team Providers Care Mortar Man Name Role Phone Gurvinder Romo MD Primary Care Provider Unavail able Wendy Collins Unavailable [phone] REASON FOR VISIT MD Encounters Encounter Location Date Provider Diagnosis [facility] [address] [place] [phone] 01/24/2025 Wendy Collins Plan Of Treatment No Information Progress Notes * Sonny CEJAOB:1985 (39 yo F)Acc No.[id number]:01/24/2025 UNLOCKED PROGRESS NOTE Progress Notes Patient: Carol GASTON :?Wendy Gomez M.D.:1985???Age:39 Y ???Sex:FemaleDate:01/24/2025Phone:[phone]:[address] [place] [phone]:Gurvinder Romo MD Subjective: * Chief Complaints: * 1 . MD. * Medical History: Objective: * Vitals: Assessment: Plan: * Treatment: * * Electronic signature of Wendy Collins MD, [id number] on 08/14/2025 at 05:16 AM ESTSign off status: PendingVisit Status:?CONFSMS (Voice) * Provider: Garry Gomez M.D. Date: 0 01/24/2025 Generated for Printing/Faxing/eTransmitting on:?08/14/2025 05:16 AM EST
[2025-08-14 04:19] VITALS: BP 126/79; PULSE 90; TEMP 37.3; O2SAT 100; BMI 27.5
[2025-08-14 04:43] VITALS: O2SAT 100
--- NOTE | 2025-08-14 05:10 | ED.GENADUL1 ---
HPI HPI - General Adult General Chief complaint: Skin/Abscess/Foreign Body Stated complaint: RASH, BILATERAL LEG SWELLING, BODY ACHES Time Seen by Provider: 08/14/25 04:46 Source: patient Mode of arrival: Wheelchair Limitations: no limitations History of Present Illness HPI narrative: cc - generalized pain and rash Pt told the nurse and I that she was concerned that she might have meningitis or measles or some other serious condition. She just flew back from [place], [place], where she spent several days touring resorts and going to [place]. She also spent some time by and n the pool and in the sun. She complains of a rash to both legs from the groin and pain throughout her entire body. She told me that she developed an itchy red rash on her groin the day after she arrived in [place]. She said she initially thought it might be from the sun. The rash extended down into her legs. She took some ibuprofen one day and then Advil the next and noted that the rash improved. however she began experiencing pain in both legs and the pain extended into her back, hips and hands as well. She continued her vacation despite the worsening symptoms, including almost the entire day Thursday at the amusement park. She said that she was tired on Thursday and slept as much as I could before checkout. Her flight was supposed to leave [facility] at 8pm but was delayed until 11pm and she did not land in [place] until early this morning. She said that she had to be transported from the plane to the vehicle to get a ride home in a wheelchair because the pain was so bad and becauyse her legs were weak and just wouldn't work . She drove herself to the ED here in [place] from [place], where she lives, but then called ED registration to get wheelchair assistance from the car. She denies any GI or symptoms. No fever. Rash has improved a lot over the last 24 hours. Related Data Home Medications ?Medication ?Instructions ?Recorded ?Confirmed fluoxetine 40 mg capsule 40 mg PO DAILY 12/12/24 08/14/25 Allergies Allergy/AdvReac Type Severity Reaction Status Date / Time amoxicillin Allergy Unknown Unknown Verified 08/14/25 04:33 Opioid HPI Opioid Management Most Recent Opioid Data: Last Pain Scale 2 12/23/24, 14:30 [facility] Medical History (Updated 12/08/25 @ 05:34 by Zachary Tellez) Anxiety ?F41.9 - Anxiety disorder, unspecified (ICD-10) Request for sterilization ?Z30.2 - Encounter for sterilization (ICD-10) Surgical History (Updated 12/12/24 @ 10:25 by Ani Allen NP) History of myringotomy ?Z98.890 - Other specified postprocedural states (ICD-10) History of section ?Z98.891 - History of uterine scar from previous surgery (ICD-10) Family History (Updated 12/12/24 @ 10:25 by Ani Allen NP) Other Family history of breast cancer Family history of cancer Family history of diabetes mellitus Social History (Updated 12/12/24 @ 10:20 by Ani Allen NP) Within the past year, how often did you have a drink containing alcohol: never Score interpretation: A score less than 3 is consistent with normal alcohol consumption. Smoking status: Never smoker Non-prescribed substance use: denies use Previous occupational history: Self-employed Highest level of school completed/degree received: high school graduate Little interest or pleasure in doing things: not at all Feeling down, depressed, or hopeless: not at all Exam Narrative Exam Narrative: Nurses notes and vital signs reviewed and patient is not hypoxic. afebrile General: Well-appearing and in no apparent distress. Skin: Warm, dry, no pallor noted. Fine, patchy, flat erythematous rash noted to portions of both lower legs anteriorly. It does not extend to the thighs or buttocks or torso or upper extremities at this time. Petechia, no purpura, no vesicles or bullae. Head: Normocephalic, atraumatic. Neck: Supple, able to move her neck to look around but then when I ask her to move her neck she says I can't yet the neck is non-tender. No lymphadenopathy. No meningismus. Eye: Pupils are equal, round and EOMI. No scleral icterus. Ears, Nose, Mouth, and Throat: Oral mucosa is moist without lesions. No posterior pharyngeal erythema or swelling. Cardiovascular: Regular Rate and Rhythm without murmur, gallop or rub. Respiratory: No accessory muscle use or respiratory distress. Lungs are clear to auscultation, no wheezing, rales or rhonchi. Back: No midline thoracic or lumbar vertebral tenderness. No CVA tenderness. Musculoskeletal: normal ROM, no calf or popliteal tenderness, no lower extremity edema/swelling GI: Abdomen is soft, non-distended. Normal bowel sounds. No tenderness to palpation. No rebound, guarding, or rigidity noted. Neurological: A&O x4. No cranial nerve dysfunction observed. No truncal ataxia. When I ask her to lift and move her legs, she does slow very slowly and says that she is unable to lift them off the bed without dragging her heel but later she is to move her legs off of the bed and stand without assistance. Moves both upper extremities out difficulty. Sensation intact. Psychiatric: Cooperative and interactive. Normal mood and affect. Constitutional Vital Signs, click to edit/add: Last Vital Signs Temp 99.1 F 08/14/25 04:19 Pulse 90 08/14/25 04:19 Resp 18 08/14/25 04:19 BP 126/79 08/14/25 04:19 Pulse Ox 100 08/14/25 04:43 O2 Del Method Room Air 08/14/25 04:43 Course Vital Signs Vital signs: Vital Signs Temperature 99.1 F 08/14/25 04:19 Pulse Rate 90 08/14/25 04:19 Respiratory Rate 18 08/14/25 04:19 Blood Pressure 126/79 08/14/25 04:19 Pulse Oximetry 100 08/14/25 04:19 Oxygen Delivery Method Room Air 08/14/25 04:19 Temperature 99.1 F 08/14/25 04:19 Pulse Rate 90 08/14/25 04:19 Respiratory Rate 18 08/14/25 04:19 Blood Pressure 126/79 08/14/25 04:19 Pulse Oximetry 100 08/14/25 04:43 Oxygen Delivery Method Room Air 08/14/25 04:43 Medical Decision Making MDM Narrative Medical decision making narrative: The patient's presentation and exam are inconsistent. She complains of inability to move parts of her body and then subsequently moves them. When I try and examine her legs and ask her to relax that I can perform passive movement she stiffens and will not let me move the leg. She was able to stand and ambulate but then told me that she could not move her legs while laying in bed. Talked with the security shift supervisor, who assisted her out of the car and into the wheelchair, at her request, he told me that he she was able to stand and pivot with minimal assistance. The patient told me that she had recently had blood testing here at the [facility] with abnormalities associated with connective tissue disease . I reviewed her chart and could not find any tests other than RPR obtained in 2022. CBC and hCG quant in 2024 in association with oncological procedure. Ordered a variety of different blood tests and also ordered the patient to receive IV Solu-Medrol, IV Toradol and IV Benadryl, in order to see if her rash improved and to also help with her generalized discomfort. The patient became upset and decided that she did not want the testing and wanted to leave. I tried to reassure her that she did not have meningitis or measles or anything life-threatening and she took this is you not really caring what happens to me and downplaying her demeaning her symptomatology. She told me that she plan to follow-up with Dr. Romo on an out-patient basis. Discharge Plan Discharge Chief Complaint: Skin/Abscess/Foreign Body Clinical Impression: Polymyalgia, Polyarthralgia, Dermatitis Patient Disposition: Home, Self-Care Time of Disposition Decision: 05:33 Prescriptions / Home Meds: No Action fluoxetine 40 mg capsule 40 mg PO DAILY Print Language: Ukrainian Instructions: Arthralgia (ED), Dermatitis (ED) Referrals: RADHA ROMO [Primary Care Provider, Family Practice] - 1 week
--- OUTSIDE RECORDS SUMMARY | 2025-08-14 05:15 | XMS_ITS | CCD ---
Author Organization [facility] Care Team Providers Care Nutrition Educator Name Role Phone Ankit Castillo Unavailable DR GURVINDER WILLS Primary Care Unavailable ADELAIDE, DR ORONA Attending Unavailable DR YEYO BRYSON Consulting Unavailable DR YEYO BRYSON Admitting Unavailable Gurvinder Wills MD Primary Care Provider Gurvinder Wills MD Primary Care Provider Gurvinder Wills MD Primary Care Provider Yeyo Bryson Admitting Unavailable Yeyo Bryson Attending Unavailable Gurvinder Wills Primary Care Unavailable Fredis Hernandes Admitting Unavailab Fredis Hahn Attending Unavailab Gurvinder Conde Primary Care Unavailable Gurvinder Wills MD Primary Care Provider Yeyo Bryson DO Attending Provider YEYO BRYSON Attending Unavailable TOÑA DYKES Attending Unavailable GURVINDER WILLS Attending Unavailable YEYO BRYSON Attending Unavailable Allergies Allergy ClassificationReported Allergen(s)Allergy TypeDate of OnsetReaction(s) Facility (20 sources)AmoxicillinDrug Tfmbpmc10-13-8527ZmkqpzaLSUU [facility] Work Phone: Medications Current Medications MedicationDrug Class(es)DatesSig (Normalized)Sig (Original)Collagen-Vitamin C- Biotin (COLLAGEN PO) (3 sources)take 1 scoop(s) by mouth once dailyCollagen-Vitamin C-Biotin (COLLAGEN PO) Take 1 Scoop by mouth Daily Activedocusate sodium 100 mg oral capsule (15 sources)Start: 23-22-6035kjtc 1 capsule by mouth once daily as needed for constipationdocusate sodium (COLACE) 100 mg capsule Indications: constipation Take 1 capsule (100 mg total) by mouth daily as needed for constipation Indications: constipation. 60 capsule 11/10/2023 ActiveFLUoxetine 40 mg oral capsule (18 sources)Serotonin Reuptake InhibitorStart: 11-07-2024 End: 71-38-9935glfo 1 capsule by mouth once dailyFLUoxetine (PROzac) 40 MG capsule Indications: Mood changes Take 1 capsule (40 mg) by mouth Daily 30 capsule 3 11/07/2024 ActiveStart: 27-28-8121nkvn 3 capsules by mouth once daily Fluoxetine 20 mg Capsule Active 60 MG PO Daily February 12, 2021 12:00amStart: 02-06-2021 End: 49-40-0891Mhhrfnufnl 20 mg capsule Discontinued 30 MG PO Daily February 06, 2021 2:00pm February 12, 2021 9:31amStart: 10-09-2018 End: 01-94-5624iayn 1 capsule by mouth twice dailyFluoxetine 20 mg Capsule Discontinued 20 MG PO Twice daily October 09, 2018 1:00am February 06, 2021 1:48pmtake 2 capsules by mouth every twenty-four hoursFLUoxetine HCl 40 MG 2 capsule Orally Once a day for 90 days ActiveHair Skin & Nails Gummies (3 sources)Hair Skin & Nails Gummies ActiveMultiple Vitamin (multivitamin) tablet (3 sources)take 1 tablet by mouth once dailyMultiple Vitamin (multivitamin) tablet Take 1 tablet by mouth Daily ActiveoxyCODONE hydrochloride 5 mg oral tablet (4 sources)Opioid AgonistStart: 11-10-2023 End: 65-82-8581cyap 1 tablet by mouth every six hours as needed for pain oxyCODONE (ROXICODONE) 5 mg immediate release tablet Indications: Postoperative pain Take 1 tablet (5 mg total) by mouth every 6 (six) hours as needed for pain for up to 5 days. Max Daily Amount: 20 mg 20 tablet 0 11/10/2023 11/15/2023 ActiveQUEtiapine 25 mg oral tablet (4 sources)Atypical AntipsychoticStart: 69-23-5034Rcdpricoli 25 mg Tablet Active 37.5 MG PO Daily at bedtime 45 Kaci 8th, 2021 12:00amStart: 10-09-2018 End: 49-40-9712eykd 1 tablet by mouth once daily at bedtimeQuetiapine 25 mg Tablet Discontinued 25 MG PO Daily at bedtime 14 October 09, 2018 1:00am 2020 1:49pmVitamin D3 (3 sources)Vitamin D3 Active Completed/Discontinued Medications MedicationDrug Class(es)DatesSig (Normalized)Sig (Original)acetaminophen 500 mg oral tablet (19 sources)Start: 11-10-2023 End: 39-33-9350gvyw 2 tablets by mouth every eight hoursacetaminophen (Tylenol) 500 MG tablet Take 1,000 mg by mouth every 8 (eight) hours 11/10/2023 11/30/2024 Tifjyakfjjyd07 hr buPROPion hydrochloride 100 mg extended release oral tablet (3 sources)Aminoketonetake 1 tablet by mouth every twenty-four hoursWellbutrin SR 100 MG 1 tablet in the morning Orally Once a day for 30 days Not-Taking citalopram 10 mg oral tablet (1 source)Serotonin Reuptake InhibitorStart: 10-05-2018 End: 27-50-4205jmng 1 tablet by mouth once dailyCitalopram 10 mg tablet Discontinued 10 MG PO Daily October 05, 2018 1:00am October 09, 2018 1:32pm ibuprofen 800 mg oral tablet (19 sources)Nonsteroidal Anti-inflammatory DrugStart: 11-10-2023 End: 36-95-6106empy 1 tablet by mouth every eight hoursibuprofen 800 MG tablet Take 800 mg by mouth every 8 (eight) hours 11/10/2023 11/30/2024 Discontinued MV-Min-Fe Fum-FA-DHA ( 1 PO) (12 sources) End: 70-42-0285Qvsokrao MV-Min-Fe Fum-FA-DHA ( 1 PO) Take by mouth. 04/13/2025 Discontinued (Therapy completed) MV-Min-Fe Fum-FA-DHA ( 1 PO) Take by mouth. ActiveTriamcinolone (2 sources)CorticosteroidStart: 45-53-4917JCIRLRX - 10 mg January, 40 mg Problems Problem ClassificationProblemDateDocumented DateEpisodic/ChronicAnxiety disorders (16 sources)Obsessive-compulsive disorder; Translations: [Obsessive-compulsive disorder, unspecified]Onset: 317410-29-3612JjlulyhOifglbglnmnpw and procreative management (3 sources)Sterilization requested; Translations: [Encounter for sterilization] 23-61-6034IdouknpiNsdvuftyomgza and screening for infectious disease (2 sources)Encounter for screening for human papillomavirus (HPV); Translations: [Anti-nuclear factor positive]Onset: 125050-10-3372OxrhfvlzNdutpnl and fatigue (8 sources)Fatigue; Translations: [Chronic fatigue, unspecified]Onset: 914634-90-0576KehxacnNqjw disorders (20 sources)Severe recurrent major depression without psychotic features; Translations: [Major depressive disorder, recurrent severe without psychotic features]Onset: 616305-74-1999GdjbtguSrpam aftercare (2 sources)Surgical follow-up; Translations: [Encounter for follow-up examination after completed treatment for conditions other than malignant neoplasm]55-96-7099KeuhjswyFvfum hereditary and degenerative nervous system conditions (8 sources)Restless legs; Translations: [Restless legs syndrome]Onset: 806484-88-9873OpbvhltTqoeb nervous system disorders (2 sources)Sensory symptoms; Translations: [Paresthesia of skin]04-13-2025 EpisodicOther non-traumatic joint disorders (2 sources)Joint pain; Translations: [Pain in unspecified joint]04-13-2025 EpisodicOther nutritional; endocrine; and metabolic disorders (7 sources)Body mass index 25-29 - overweight; Translations: [Overweight]Onset: 451640-45-9412IwmtuqovVomsa screening for suspected conditions (not mental disorders or infectious disease) (8 sources)Encounter for screening for malignant neoplasm of cervix; Translations: [Patient encounter status]Onset: 26-71-9569OazevaiaHkphsswn codes; unclassified (2 sources)Family history of malignant neoplasm of breast in first degree relative; Translations: [Family history of malignant neoplasm of breast] 52-19-3727LaailgcqIjhxpnfu codes; unclassified (6 sources)Disorders of initiating and maintaining sleep; Translations: [Insomnia, unspecified]Onset: 866080-65-2010NfisydsqVupmhawwfwpim and other psychotic disorders (1 source)Psychotic disorder; Translations: [Unspecified psychosis not due to a substance or known physiological condition]31-88-3617RznxdfrHqjjpsr disorders (8 sources)Sick-euthyroid syndrome; Translations: [Sick-euthyroid syndrome] Onset: 555391-43-7095Mgrwqipr Results Test NameValueInterpretationReference RangeFacilityANA SCREEN, IFA, W/REFL TITER AND PATTERNon 68-87-7816FAH SCREEN, IFAPositiveAbnormalNEGATIVEQuest [facility] Comment on above:Result Comment: POLLO IFA is a first line screen for detecting the presence of up to approximately 150 autoantibodies in various autoimmune diseases. A positive POLLO IFA result is suggestive of autoimmune disease and reflexes to titer and pattern. Further laboratory testing may be considered if clinically indicated. For additional information, please refer to http://education.Kateeva/faq/DXM855 (This link is being provided for informational/ educational purposes only.)Performed By: #### 899, 249, %87686, 7573, 5081, 80531, 98865, 267, 859, 7600, 866, 905, 809 #### [facility] [address] [facility], [address] [place] [address] Cathodic Protection Technician: Jr Sanchez MD #### [id number] #### [facility] [address] [place] [address] Cathodic Protection Technician: Trey Marr M.D.,PhDANTINUCLEAR ANTIBODIES TITER AND PATTERNon 69-93-2413HPE PATTERNNuclear, SpeckledAbnormalQuest DiagnosticsComment on above:Result Comment: Speckled pattern is associated with mixed connective tissue disease (MCTD), systemic lupus erythematosus (SLE), Sjogren's syndrome, dermatomyositis, and systemic sclerosis/polymyositis overlap. AC-2,4,5,29: Speckled International Consensus on POLLO Patterns (https://doi.org/10.1515/sboc-5032-3105)Performed By: #### 899, 249, %48546, 7573, 5081, 64771, 41646, 267, 859, 7600, 866, 905, 809 #### [facility] [address], [address] [place] [address] Cathodic Protection Technician: Jr Sanchez MD #### [id number] #### [facility] [address] [facility] [place], [place] Cathodic Protection Technician: Trey Marr M.D.,PhDANA PATTERNNuclear, Few Nuclear Dots AbnormalQuest DiagnosticsComment on above:Result Comment: Nuclear dots (1-6 in number per cell) pattern is seen in Sjogren's syndrome, systemic lupus erythematosus (SLE), systemic sclerosis (scleroderma), polymyositis, and asymptomatic individuals. AC-7: Few Nuclear Dots International Consensus on POLLO Patterns (https://doi.org/10.[employer]5/iyya-8310-4365)Performed By: #### 899, 249, %25709, 7573, 5081, 35135, 58503, 267, 859, 7600, 866, 905, 809 #### [facility] [address], [address] [place], [place] [address] Cathodic Protection Technician: Jr Sanchez MD #### [id number] #### [facility] [address] [facility] [place] Cathodic Protection Technician: Trey Marr M.D.,PhDANA TITER1:640HighQuest [facility] Comment on above:Result Comment: Reference Range <1:40 Negative 1:40-1:80 Low Antibody Level >1:80 Elevated Antibody LevelPerformed By: #### 899, 249, %64458, 7573, 5081, 44921, 12628, 267, 859, 7600, 866, 905, 809 #### [facility] [address], [address] [place], [place] [address] Cathodic Protection Technician: Jr Sanchez MD #### [id number] #### [facility] [address] [place] [address] Cathodic Protection Technician: Trey Marr M.D.,PhDCOMPREHENSIVE METABOLIC PANELon 29-65-0477Qttzfll [Mass/Vol]5.0 g/dLNormal3.6-5.1Quest DiagnosticsComment on above:Performed By: #### 899, 249, %38954, 7573, 5081, 83418, 51699, 267, 859, 7600, 866, 905, 809 #### [facility] of [address], [address] [place] [address] Cathodic Protection Technician: Jr Sanchez MD #### [id number] #### [facility]/[address] [place], [place] Cathodic Protection Technician: Trey Marr M.D.,PhDAlbumin/Globulin [Mass ratio]1.9 {ratio}Normal1.0-2.5Quest DiagnosticsComment on above:Performed By: #### 899, 249, %96512, 7573, 5081, 57952, 74714, 267, 859, 7600, 866, 905, 809 #### [facility] [address] Cathodic Protection Technician: Jr Sanchez MD #### 24554 #### [facility]/[address] [place], [place] Cathodic Protection Technician: Trey Marr M.D.,PhDALP [Catalytic activity/Vol]58 U/L Grhwpr28-762Gxnho DiagnosticsComment on above:Performed By: #### 899, 249, %32652, 7573, 5081, 03066, 32837, 267, 859, 7600, 866, 905, 809 #### [facility] [place] [address] Cathodic Protection Technician: Jr Sanchez MD #### [id number] #### [facility]/[address] [place], [place] Cathodic Protection Technician: Trey Marr M.D.,PhDALT [Catalytic activity/Vol]22 U/L Normal6-29Quest DiagnosticsComment on above:Performed By: #### 899, 249, %33539, 7573, 5081, 07588, 15109, 267, 859, 7600, 866, 905, 809 #### [facility] of [address], [address] [place], [place] [address] Cathodic Protection Technician: Jr Sanchez MD #### [id number] #### [facility]/[address] [place], [place] Cathodic Protection Technician: Trey Marr M.D.,PhDAST [Catalytic activity/Vol]22 U/L Cedqco18-40Yzrxk DiagnosticsComment on above:Performed By: #### 899, 249, %70412, 7573, 5081, 71255, 61832, 267, 859, 7600, 866, 905, 809 #### [facility] of [address], [address] [place], [place] [address] Cathodic Protection Technician: Jr Sanchez MD #### [id number] #### [facility]/[address] [place], [place] Cathodic Protection Technician: Trey Marr M.D.,PhDBilirubin [Mass/Vol]0.7 mg/dLNormal 0.2-1.2Quest DiagnosticsComment on above:Performed By: #### 899, 249, %31625, 7573, 5081, 64016, 91445, 267, 859, 7600, 866, 905, 809 #### [facility] [address], [address] [place], [place] [address] Cathodic Protection Technician: Jr Sanchez MD #### [id number] #### [facility]/[address] [place], [place] Cathodic Protection Technician: Trey Marr M.D.,PhDBUN/CREATININE RATIOSEE NOTE:Normal 6-22Quest DiagnosticsComment on above:Result Comment: Not Reported: BUN and Creatinine are within reference range.Performed By: #### 899, 249, %67549, 7573, 5081, 48053, 23103, 267, 859, 7600, 866, 905, 809 #### [facility] [address], [address] [place], [place] [address] Cathodic Protection Technician: Jr Sanchez MD #### [id number] #### [facility]/[address] [place] Cathodic Protection Technician: Trey Marr M.D.,PhDCalcium [Mass/Vol]9.8 mg/dLNormal 8.6-10.2Quest DiagnosticsComment on above:Performed By: #### 899, 249, %51746, 7573, 5081, 47489, 66178, 267, 859, 7600, 866, 905, 809 #### [facility] [address], [address] [place], [place] [address] Cathodic Protection Technician: Jr Sanchez MD #### [id number] #### [facility]/[address] [place], [place] Cathodic Protection Technician: Trey Marr M.D.,PhDChloride [Moles/Vol]102 mmol/LNormal 98-110Quest DiagnosticsComment on above:Performed By: #### 899, 249, %66117, 7573, 5081, 00012, 85242, 267, 859, 7600, 866, 905, 809 #### [facility] [address], [address] [place], [place] [address] Cathodic Protection Technician: Jr Sanchez MD #### [id number] #### [facility]/[address] [place] Cathodic Protection Technician: Trey Marr M.D.,PhDCO2 [Moles/Vol]24 mmol/QIaixev39-70 Quest DiagnosticsComment on above:Performed By: #### 899, 249, %58020, 7573, 5081, 98064, 11839, 267, 859, 7600, 866, 905, 809 #### [facility] of [address], [address] [place], [place] [address] Cathodic Protection Technician: Jr Sanchez MD #### [id number] #### [facility]/[address] [place] Cathodic Protection Technician: Trey Marr M.D.,PhDCreatinine [Mass/Vol]0.68 mg/dLNormal 0.50-0.97Quest DiagnosticsComment on above:Performed By: #### 899, 249, %73058, 7573, 5081, 69515, 14717, 267, 859, 7600, 866, 905, 809 #### [facility] [address], [address] [place], [place] [address] Cathodic Protection Technician: Jr Sanchez MD #### [id number] #### [facility]/[address] [place], [place] Cathodic Protection Technician: Trey Marr M.D.,PhDGFR/1.73 sq M.predicted among non- blacks MDRD (S/P/Bld) [Vol rate/Area]115 mL/min/{1.73_m2}Normal> OR = 60Quest DiagnosticsComment on above:Performed By: #### 899, 249, %43418, 7573, 5081, 15674, 02201, 267, 859, 7600, 866, 905, 809 #### [facility] [place] [id number] Cathodic Protection Technician: Jr Sanchez MD #### [id number] #### [facility]/[place] [id number] [place] Cathodic Protection Technician: Trey Marr M.D.,PhDGlobulin (S) [Mass/Vol]2.6 g/dLNormal 1.9-3.7Quest DiagnosticsComment on above:Performed By: #### 899, 249, %65132, 7573, 5081, 94284, 30921, 267, 859, 7600, 866, 905, 809 #### [facility] [address], [address] [place], [place] [address] Cathodic Protection Technician: Jr Sanchez MD #### [id number] #### [facility]/[address] [place] Cathodic Protection Technician: Trey Marr M.D.,PhDGlucose [Mass/Vol]87 mg/aRRcageq98-397 Quest DiagnosticsComment on above:Result Comment: Non-fasting reference intervalPerformed By: #### 899, 249, %98657, 7573, 5081, 49976, 84553, 267, 859, 7600, 866, 905, 809 #### [facility] [address], [address] [place], [place] [address] Cathodic Protection Technician: Jr Sanchez MD #### [id number] #### [facility]/[address] [place] Cathodic Protection Technician: Trey Marr M.D.,PhDPotassium [Moles/Vol]4.3 mmol/LNormal 3.5-5.3Quest DiagnosticsComment on above:Performed By: #### 899, 249, %41773, 7573, 5081, 41466, 06614, 267, 859, 7600, 866, 905, 809 #### [facility] [place] [id number] Cathodic Protection Technician: Jr Sanchez MD #### [id number] #### [facility]/[place] [address] [place] Cathodic Protection Technician: Trey Marr M.D.,PhDProtein [Mass/Vol]7.6 g/dLNormal 6.1-8.1Quest DiagnosticsComment on above:Performed By: #### 899, 249, %16110, 7573, 5081, 82395, 25686, 267, 859, 7600, 866, 905, 809 #### [facility] of [address], [address] [place] [address] Cathodic Protection Technician: Jr Sanchez MD #### [id number] #### [facility]/[address] [place], [place] Cathodic Protection Technician: Trey Marr M.D.,PhDSodium [Moles/Vol]136 mmol/LNormal 135-146Quest DiagnosticsComment on above:Performed By: #### 899, 249, %19101, 7573, 5081, 36389, 74436, 267, 859, 7600, 866, 905, 809 #### [facility] [address], [address] [place], [place] [address] Cathodic Protection Technician: Jr Sanchez MD #### [id number] #### [facility]/[address] [place], [place] Cathodic Protection Technician: Trey Marr M.D.,PhDUrea nitrogen [Mass/Vol]17 mg/dLNormal 7-25Quest DiagnosticsComment on above:Performed By: #### 899, 249, %28763, 7573, 5081, 73203, 21468, 267, 859, 7600, 866, 905, 809 #### [facility] [address], [address] [place], [place] [address] Cathodic Protection Technician: Jr Sanchez MD #### 24621 #### [facility]/[address] [place] Cathodic Protection Technician: Trey Marr M.D.,PhDIRON AND TOTAL IRON BINDING CAPACITYon 05-13-2025% XNJYXZGOOP98 % (calc)Uts22-67Ifyhp DiagnosticsComment on above: Performed By: #### 899, 249, %95155, 7573, 5081, 99937, 12077, 267, 859, 7600, 866, 905, 809 #### [facility] [address], [address] [place] [address] Cathodic Protection Technician: Jr Sanchez MD #### [id number] #### [facility]/[address] [place], [place] Cathodic Protection Technician: Trey Marr M.D.,PhDIRON BINDING BBSHSHVL780 mcg/dL (calc) Xbofmf769-641Agjyh DiagnosticsComment on above:Performed By: #### 899, 249, %74363, 7573, 5081, 37764, 04531, 267, 859, 7600, 866, 905, 809 #### [facility] [address], [address] [place] [address] Cathodic Protection Technician: Jr Sanchez MD #### [id number] #### [facility]/[place] [id number] [facility] [place], [place] Cathodic Protection Technician: Trey Marr M.D.,PhDIRON, TOTAL55 mcg/sDSfxyun73-251Ozvrf DiagnosticsComment on above:Performed By: #### 899, 249, %81920, 7573, 5081, 46223, 28440, 267, 859, 7600, 866, 905, 809 #### [facility] [address], [address] [place] [address] Cathodic Protection Technician: Jr Sanchez MD #### 64727 #### [facility]/[place] [address] [facility] [place], [place] Cathodic Protection Technician: Trey Marr M.D.,PhDLIPID PANEL, STANDARDon 05-13-2025 Cholesterol [Mass/Vol]209 mg/dLHigh<200Quest DiagnosticsComment on above:Order Comment: FASTING:NO FASTING: NOPerformed By: #### 899, 249, %22684, 7573, 5081, 99991, 46311, 267, 859, 7600, 866, 905, 809 #### [facility] [address] [facility], [address] [place] [address] Cathodic Protection Technician: Jr Sanchez MD #### [id number] #### [facility]/[place] [address] [facility] [place], [place] Cathodic Protection Technician: Trey Marr M.D.,PhDCholesterol in HDL [Mass/Vol]61 mg/dL Normal> OR = 50Quest DiagnosticsComment on above:Order Comment: FASTING:NO FASTING: NOPerformed By: #### 899, 249, %09301, 7573, 5081, 99514, 23256, 267, 859, 7600, 866, 905, 809 #### [facility] [address] [place] [address], [address] [place], [place] [address] Cathodic Protection Technician: Jr Sanchez MD #### [id number] #### [facility] [address] [facility] [place] Cathodic Protection Technician: Trey Marr M.D.,PhDCholesterol in LDL [Mass/Vol]116 mg/dL HighQuest DiagnosticsComment on above:Order Comment: FASTING:NO FASTING: NOResult Comment: Reference range: <100 Desirable range <100 mg/dL for primary prevention; <70 mg/dL for patients with CHD or diabetic patients with > or = 2 CHD risk factors. LDL-C is now calculated using the Misael calculation, which is a validated novel method providing better accuracy than the Friedewald equation in the estimation of LDL-C. Julien MULLER et al. CHRISS. 2013;310(19): 6564-5161 (http://education.Kateeva/faq/RPZ049)Performed By: #### 899, 249, %64780, 7573, 5081, 42664, 81477, 267, 859, 7600, 866, 905, 809 #### [facility] [address], [address] [place], [place] [address] Cathodic Protection Technician: Jr Sanchez MD #### [id number] #### [facility]/[place] [address] [place], [place] Cathodic Protection Technician: Trey Marr M.D.,PhDCholesterol.total/Cholesterol in HDL [Mass ratio]3.4 {ratio}Normal<5.0Quest DiagnosticsComment on above:Order Comment: FASTING:NO FASTING: NOPerformed By: #### 899, 249, %69382, 7573, 5081, 48186, 41137, 267, 859, 7600, 866, 905, 809 #### [facility] [address], [address] [place], [place] [address] Cathodic Protection Technician: Jr Sanchez MD #### 69695 #### [facility] [address] [facility] [place] Cathodic Protection Technician: Trey Marr M.D.,PhDNON HDL UNXQLEPNIFI841 mg/dL (calc) High<130Quest DiagnosticsComment on above:Order Comment: FASTING:NO FASTING: NOResult Comment: For patients with diabetes plus 1 major ASCVD risk factor, treating to a non-HDL-C goal of <100 mg/dL (LDL-C of <70 mg/dL) is considered a therapeutic option.Performed By: #### 899, 249, %88316, 7573, 5081, 81311, 36698, 267, 859, 7600, 866, 905, 809 #### [facility] [address], [address] [place], [place] [address] Cathodic Protection Technician: Jr Sanchez MD #### 77489 #### [facility]/[place] [address] [place], [place] Cathodic Protection Technician: Trey Marr M.D.,PhDTriglyceride [Mass/Vol]208 mg/dLHigh <150Quest DiagnosticsComment on above:Order Comment: FASTING:NO FASTING: NOResult Comment: If a non-fasting specimen was collected, consider repeat triglyceride testing on a fasting specimen if clinically indicated. Elizabeth et al. J. of Clin. Lipidol. 2015;9:129-169.Performed By: #### 899, 249, %71754, 7573, 5081, 43315, 86907, 267, 859, 7600, 866, 905, 809 #### [facility] [address], [address] [place] [address] Cathodic Protection Technician: Jr Sanchez MD #### 57601 #### [facility]/[address] [place], [place] Cathodic Protection Technician: Trey Marr M.D.,PhDRHEUMATOID FACTORon 05-13-2025 RHEUMATOID FACTOR<10Normal<14Quest DiagnosticsComment on above:Performed By: #### 899, 249, %24161, 7573, 5081, 56782, 29610, 267, 859, 7600, 866, 905, 809 #### [facility] [address], [address] [place] [address] Cathodic Protection Technician: Jr Sanchez MD #### 36043 #### [facility]/[address] [place], [place] Cathodic Protection Technician: Trey Marr M.D.,PhDSED RATE BY MODIFIED WESTERGRENon 06-88-6291UHU RATE BY MODIFIED WESTERGREN2 mm/hNormal< OR = 20[facility] Comment on above:Performed By: #### 899, 249, %37314, 7573, 5081, 99446, 00942, 267, 859, 7600, 866, 905, 809 #### [facility] [address], [address] [place] [address] Cathodic Protection Technician: Jr Sanchez MD #### [id number] #### [facility]/[address] [place], [place] Cathodic Protection Technician: Trey Marr M.D.,PhDT3 REVERSE, LC/MS/MSon 87-30-0700L8 REVERSE, LC/MS/MS13 ng/dLNormal8-25Quest DiagnosticsComment on above:Result Comment: This test was developed and its analytical performance characteristics have been determined by [facility] [place], [place]. It has not been cleared or approved by the U.S. Food and Drug Administration. This assay has been validated pursuant to the CLIA regulations and is used for clinical purposes.Performed By: #### 899, 249, %30917, 7573, 5081, 95870, 10531, 267, 859, 7600, 866, 905, 809 #### [facility] [address], [address] [place] [address] Cathodic Protection Technician: Jr Sanchez MD #### [id number] #### [facility]/[place] [id number] [facility] [place], [place] Cathodic Protection Technician: Trey Marr M.D.,PhDT3, FREEon 91-99-6098Jxjp T3 [Mass/Vol]2.9 pg/mLNormal2.3-4.2Quest DiagnosticsComment on above:Performed By: #### 899, 249, %79467, 7573, 5081, 26701, 31599, 267, 859, 7600, 866, 905, 809 #### [facility] [address], [address] [place] [address] Cathodic Protection Technician: Jr Sanchez MD #### [id number] #### [facility]/[place] [id number] [facility] [place], [place] Cathodic Protection Technician: Trey Marr M.D.,PhDT3, TOTALon 88-67-9553B7, TOTAL79 ng/jMAqugou27-967Hgmin DiagnosticsComment on above:Performed By: #### 899, 249, %52108, 7573, 5081, 68115, 71488, 267, 859, 7600, 866, 905, 809 #### [facility] [place] [address] Cathodic Protection Technician: Jr Sanchez MD #### [id number] #### [facility]/[place] [address] [facility] [place], [place] Cathodic Protection Technician: Trey Marr M.D.,PhDT4, FREE 02-67-0975Pstk T4 [Mass/Vol]1.1 ng/dLNormal0.8-1.8Quest DiagnosticsComment on above:Performed By: #### 899, 249, %46665, 7573, 5081, 10934, 34443, 267, 859, 7600, 866, 905, 809 #### [facility] [place] [address] Cathodic Protection Technician: Jr Sanchez MD #### [id number] #### [facility]/[place] [address] [facility] [place], [place] Cathodic Protection Technician: Trey Marr M.D.,PhDTHYROGLOBULIN ANTIBODIESon 05-13-2025 THYROGLOBULIN ANTIBODIES1 IU/mLNormal< or = 1Quest DiagnosticsComment on above: Performed By: #### 899, 249, %83275, 7573, 5081, 86287, 74952, 267, 859, 7600, 866, 905, 809 #### [facility] [place] [id number] Cathodic Protection Technician: Jr Sanchez MD #### [id number] #### [facility]/[place] [address] [facility] [place], [place] Cathodic Protection Technician: Trey Marr M.D.,PhDTHYROID PEROXIDASE ANTIBODIESon 48-71-4085PFHDZVL PEROXIDASE ANTIBODIES4 IU/mLNormal<9Quest DiagnosticsComment on above:Performed By: #### 899, 249, %10427, 7573, 5081, 53310, 29471, 267, 859, 7600, 866, 905, 809 #### [facility] [address], [address] [place], [place] [address] Cathodic Protection Technician: Jr Sanchez MD #### [id number] #### [facility]/[address] [place], [place] Cathodic Protection Technician: Trey Marr M.D.,PhDTSHon 97-51-8585UES Qn1.53 m[IU]/L NormalQuest DiagnosticsComment on above:Result Comment: Reference Range > or = 20 Years 0.40-4.50 Ranges First trimester 0.26-2.66 Second trimester 0.55-2.73 Third trimester 0.43-2.91Performed By: #### 899, 249, %65276, 7573, 5081, 41728, 47741, 267, 859, 7600, 866, 905, 809 #### [facility] [place] [address] Cathodic Protection Technician: Jr Sanchez MD #### 61663 #### [facility]/[address] [place], [place] Cathodic Protection Technician: Trey Marr M.D.,PhDURIC ACIDon 19-01-5277Crfht [Mass/Vol] 3.6 mg/dLNormal2.5-7.0Quest DiagnosticsComment on above:Result Comment: Therapeutic target for gout patients: <6.0 mg/dLPerformed By: #### 899, 249, %37368, 7573, 5081, 63190, 42918, 267, 859, 7600, 866, 905, 809 #### [facility] [address], [address] [place] [address] Cathodic Protection Technician: Jr Sanchez MD #### [id number] #### [facility]/[place] [address] [place] [address] Cathodic Protection Technician: Trey Marr M.D.,PhDPathology study report documentOrdered By: Mitchell Ward on 16-75-8379Tozlrcuvk studyMercy Health St. [facility] Other ALL CBC WITH AUTO DIFFon 07-20-4672IUDWURRGZ ABSOLUTE AUTO0.1NOMS HealthcareBasophils/100 WBC (Bld)0.6 %0.2 - 2.0 %[facility] Eosinophils/100 WBC (Bld)5.7 %0.9 - 7.0 %NOMS HealthcareErythrocyte distribution width (RBC) [Ratio]13.1 %11.0 - 15.0 %NOM HealthcareHematocrit (Bld) [Volume fraction]41.1 %36.0 - 48.0 %NOMResearch Medical CenterHemoglobin (Bld) [Mass/Vol]13.9 g/dL 12.0 - 16.0 g/dLNOParkland Health CenterIMMATURE GRANULOCYTES ABS AUTO0.01[facility] Immature granulocytes/100 WBC (Bld)0.1 %0.0 - 0.5 %NOM HealthcareLYMPHOCYTES ABSOLUTE AUTO2.5NORI HealthcareLymphocytes/100 WBC (Bld)28 %20.5 - 60.0 %[facility] HospitalH (RBC) [Entitic mass]29.6 pg26.7 - 34.0 pgNOSoutheast Missouri Community Treatment CenterHC (RBC) [Mass/Vol]33.8 g/dL29.9 - 35.2 g/dLLiberty HospitalV (RBC) [Entitic vol]87.4 fL 81.0 - 99.0 fLNOParkland Health CenterMONOCYTES ABSOLUTE AUTO0.6[facility] Healthcare Monocytes/100 WBC (Bld)7.3 %1.7 - 12.0 %NOM HealthcareNEUTROPHILS ABSOLUTE AUTO 5.1NOMS HealthcareNeutrophils/100 WBC (Bld)58.3 %43.0 - 75.0 %NOMResearch Medical Center Platelet mean volume (Bld) [Entitic vol]10.7 fL9.5 - 13.5 fLNOParkland Health CenterTBH EO #0.5NOMissouri Southern Healthcare VEE771ODSRMissouri Southern Healthcare RBC4.7NOMissouri [facility] Healthcare WBC 8.7NOMS [facility] SystemKELLI [facility] 12-23-2024 Specimen: [id number] Received: 12/23/24 Status: KENDRA Lyman Num: [id number] Spec Type: Surgical Subm Dr: Yeyo Bryson Tissues: A Fallopian Tube - Sterilization (BILATERAL FALLOPIAN TUBES) Procedures: HE/2Garett/Marta L2 Age/ Patient Sex Location Account Attending Physician Vicky Ceja 39/F LABELL [id number] Yeyo Bryson SPEC NUM: [id number] RECD: 12/23/24 STATUS: KENDRA LYMAN NUM: [id number] DIANA: 12/23/[address] [facility] [address]: Yeyo Bryson ENTERED: 12/23/[address] [facility] [address]: Neal,Lab SPEC TYPE: Surgical DEPT: NELIDA POLLARD ENTERED BY: [id number] RECV BY: [id number] ORDERED: HE/2, Gross/Micro L2 ORDERED: HE/2, Gross/Micro L2 Pathological Diagnosis Bilateral fallopian tubes, bilateral tubal ligation - Completely transected bilateral fallopian tubes with no significant histopathology. Clinical Information Request for sterilization. Gross Description Received in formalin labeled with the patients name, date of , and bilateral fallopian tubes are bilateral, non-oriented fallopian tubes with fimbriated distal ends, 5.5 x 0.8 cm, and 7.5 x 0.8 cm. The serosa is boyle-purple, smooth and glistening. Serial sections reveal pinpoint lumen within each segment. Cassettes: A1 Longitudinally bisected distal tip and guest services representative cross-sections from shorter tube A2 Longitudinally bisected distal tip and guest services representative cross-sections from longer tube (2, ss, UN34-844 A) Microscopic Description Microscopic examination is performed. Specimen: [id number] Received: 12/23/24 Status: KENDRA Lyman Num: [id number] Spec Type: Surgical Subm Dr: Yeyo Bryson Tissues: A Fallopian Tube - Sterilization (BILATERAL FALLOPIAN TUBES) Procedures: HE/2, Gross/Micro L2 Patient: Vicky Ceja [id number] (Continued) Specimen: [id number] Received: 12/23/24 (Continued) Signed (signature on file) Mitchell Ward MD 12/26/24 1015 Specimen: [id number] Received: 12/23/24 Status: KENDRA Lyman Num: [id number] Spec Type: Surgical Subm Dr: Yeyo Bryson Tissues: A Fallopian Tube - Sterilization (BILATERAL FALLOPIAN TUBES) Procedures: Garett MONTIEL/Marta L2 Patient: Vicky Ceja [id number] (Continued) Specimen: [id number] Received: 12/23/24 (Continued) CPT Codes 21690 Specimen: [id number] Received: 12/23/24 Status: FIFIGurpreet Nura Num: [id number] Spec Type: Surgical Subm Dr: Yeyo Bryson Tissues: A Fallopian Tube - Sterilization (BILATERAL FALLOPIAN TUBES) Procedures: Garett MONTIEL/Marta L2 Patient: Vicky Ceja [id number] (Continued) Signed (signature on file) Mitchell Ward MD 12/26/24 1015Normal [facility] Physician GroupIGP,APTIMA HPV,AGE GDLNon 76-66-1997NHC LN ACOG TESTINGNote.NOMS HealthcareComment on above:TESTS RESULT FLAG UNITS REF RANGE LAB Clinician Provided Cytology Information Source.............Cervix;Endocervix No. of containers..01 ThinPrep Vial Age Algo ACOG Janae... FLAG LEGEND: L-Low Normal,H-High Normal,LL-Alert Low,HH-Alert High <-Panic Low,>-Panic High,A-Abnormal,AA-Critical Abnormal Performed at: 01 =[address] [address] Calli Rodriguez MD, HPV APTIMANegativeNegativeNOMS HealthcareComment on above:This nucleic acid amplification test detects fourteen high- risk HPV types (16,18,31,33,35,39,45,51,52,56,58,59,66,68) without differentiation. Performed at: =[facility] [id number] [employer]: Calli Rodriguez MD, Phone: [phone] Performed at: [facility] [address], [place] [id number] [employer]: Calli Rodriguez MD, Phone: [phone] IGP, ELMER HPV, RFX 16/18,45Note.NOMS HealthcareComment on above:TESTS RESULT FLAG UNITS REF RANGE LAB DIAGNOSIS: 02 NEGATIVE FOR INTRAEPITHELIAL LESION OR MALIGNANCY. THIS SPECIMEN WAS RESCREENED PART OF OUR REST ROOM MAID PROGRAM. Specimen adequacy: 02 Satisfactory for evaluation. Endocervical and/or squamous metaplastic cells (endocervical component) are present. Performed by: Jerica Anguiano, Manager Internship (ASCP) QC reviewed by: 02 Emma Monteiro, Manager Internship (ASCP) . 02 Note: Note 02 The [...] High <-Panic Low,>-Panic High,A-Abnormal,AA-Critical Abnormal Performed at: [facility] [address] [place] [address] Calli Rodriguez MD, BRUSH-SPATULA CERVIX ENDOCERVIX CLINISYNCNORI HealthcareHCG ( test) Ql (U)on 25-00-4099Yzalckdgelsqqe and review of laboratory resultsNormalNOMS HealthcarePreg Test, UrNegative NegativeNOMS HealthcareNOMS HealthcareUS for multiple gestation limitedon 05-61-5714[place] [address] Ultrasound Report Signed Patient: VICKY CEJA MR#: [id number] : 1985 Acct:[id number] Age/Sex: 38 / F ADM Date: 09/30/23 Loc: NOMS Attending Dr: Yeyo Bryson D.O. Ordering Physician: Yeyo Bryson D.O. Date of Service: 09/30/23 Procedure(s): US OB follow up Accession Number(s): [id number] cc: Yeyo Bryson D.O.; GURVINDER WILLS [place] [id number] Patient Name: VICKY CEJA MRN: [id number] date: 1985 Sex: F Assigned Patient Location: [facility] Current Patient Location: [facility] Accession/Order Number: [id number] Exam Date: 09/30/2023 11:01 Report Date: 09/30/2023 11:39 At the request of: YEYO BRYSON Procedure: US OB follow up EXAMINATION: US OB follow up HISTORY: FOLLOW UP CHOROID PLEXUS CYSTS COMPARISON: 08/11/2024 FINDINGS: position: Cephalic presentation, longitudinal lie Heart rate: 141 bpm Anatomy: Previously identified choroid plexus cysts are not seen on the current exam. Clinical age: 27 weeks 1 day Clinical PATY: 12/29/2023 US/US OB follow up IMPRESSION: Interval resolution of previously identified choroid plexus cysts Electronically authenticated by: WILLEM ANGUIANO Date: 09/30/2023 11:39 Dictated By: Willem Anguiano M.D. Signed By: 09/30/23 1141 DD/ 1139 TD/TT: Lease Broker:Radha Martinez MD - 11/11/2023 [place] [address] Ultrasound Report Signed Patient: VICKY CEJA MR#: [id number] : 1985 Acct:[id number] Age/Sex: 38 / F ADM Date: 09/30/23 Loc: [facility]OM[facility] Attending Dr: Yeyo Bryson D.O. Ordering Physician: Yeyo Bryson D.O. Date of Service: 09/30/23 Procedure(s): US OB follow up Accession Number(s): [id number] cc: Yeyo Bryson D.O.; GURVINDER WILLS [place] [id number] Patient Name: VICKY CEJA MRN: [id number] date: 1985 Sex: F Assigned Patient Location: [facility] Current Patient Location: [facility] Accession/Order Number: [id number] Exam Date: 09/30/2023 11:01 Report Date: 09/30/2023 11:39 At the request of: YEYO BRYSON Procedure: US OB follow up EXAMINATION: US OB follow up HISTORY: FOLLOW UP CHOROID PLEXUS CYSTS COMPARISON: 08/11/2024 FINDINGS: position: Cephalic presentation, longitudinal lie Heart rate: 141 bpm Anatomy: Previously identified choroid plexus cysts are not seen on the current exam. Clinical age: 27 weeks 1 day Clinical PATY: 12/29/2023 US/US OB follow up IMPRESSION: Interval resolution of previously identified choroid plexus cysts Electronically authenticated by: WILLEM ANGUIANO Date: 09/30/2023 11:39 Dictated By: Willem Anguiano M.D. Signed By: 09/30/23 1141 DD/ 1139 TD/TT: Lease Broker: PETERSON HealthcareRadiology, RadiologistMD - 09/30/2023 The [place] [id number] Ultrasound Report Signed Patient: VICKY CEJA MR#: [id number] : 1985 Acct:[id number] Age/Sex: 38 / F ADM Date: 09/30/23 Loc: [facility] Attending Dr: Yeyo Bryson D.O. Ordering Physician: Yeyo Bryson D.O. Date of Service: 09/30/23 Procedure(s): US OB follow up Accession Number(s): [id number] cc: Yeyo Bryson D.O.; GURVINDER WILLS [place] [id number] Patient Name: VICKY CEJA MRN: [id number] date: 1985 Sex: F Assigned Patient Location: [facility] Current Patient Location: [facility] Accession/Order Number: [id number] Exam Date: 09/30/2023 11:01 Report Date: 09/30/2023 11:39 At the request of: YEYO BRYSON Procedure: US OB follow up EXAMINATION: US OB follow up HISTORY: FOLLOW UP CHOROID PLEXUS CYSTS COMPARISON: 08/11/2024 FINDINGS: position: Cephalic presentation, longitudinal lie Heart rate: 141 bpm Anatomy: Previously identified choroid plexus cysts are not seen on the current exam. Clinical age: 27 weeks 1 day Clinical PATY: 12/29/2023 US/US OB follow up IMPRESSION: Interval resolution of previously identified choroid plexus cysts Electronically authenticated by: WILLEM ANGUIANO Date: 09/30/2023 11:39 Dictated By: Willem Anguiano M.D. Signed By: 09/30/23 1141 DD/ 1139 TD/TT: Lease Broker: [facility] HealthcareRadiology Study observation (narrative)[facility] HealthcareUS for multiple gestation limitedOrdered By: Radiologist Radiology on 70-22-7204PNRB Healthcare Work Phone: PAP ACOG PANEL 2: 30 to 65on 05-20-2022..NormalThe [facility] Clinic Orthopedic CenterComment on above:Result Comment: Performed at: WBPerformed By: #### [id number] #### [facility] [address] [place] [address] Dr. Beth Ryan Gdln ACOG Trrfcgu38-00CuifmeBxcAvita Health System [facility] on above:Performed By: #### [id number] #### [facility] [address] [place] [address] Dr. Beth GutierrezDIAGNOSIS:CommentAvita Health System Galion Hospital on above: Result Comment: NEGATIVE FOR INTRAEPITHELIAL LESION OR MALIGNANCY. Performed at: WBPerformed By: #### [id number] #### [facility] [address] [place] [address] Dr. Beth GutierrezHPV AptimaNegativeNormalNegativeCleveland Clinic [facility] on above:Result Comment: This nucleic acid amplification test detects fourteen high-risk HPV types (16,18,31,33,35,39,45,51,52,56,58,59,66,68) without differentiation. Performed at: =GPerformed By: #### [id number] #### [facility] [address] [place] [address] Dr. Beth GutierrezMethodology:CommentAvita Health System Galion Hospital on above: Result Comment: This liquid based ThinPrep(R) pap test was screened with the use of an image guided system. Performed at: WBPerformed By: #### [id number] #### [facility] [address] [place] [address] Dr. Beth GutierrezNote:CommentAvita Health System Galion Hospital on above:Result Comment: The Pap smear is a screening test designed to aid in the detection of premalignant and malignant conditions of the uterine cervix. It is not a diagnostic procedure and should not be used as the sole means of detecting cervical cancer. Both false-positive and false-negative reports do occur. . Performed at: WBPerformed By: #### [id number] #### [facility] [address] [place] [address] Dr. Beth GutierrezPerformed by:CommentAvita Health System Galion Hospital on above: Result Comment: Charmaine Lomas Manager Internship (ASCP) Performed at: WBPerformed By: #### [id number] #### [facility] [address] [place] [address] Dr. Beth GutierrezSpecimen adequacy:CommentNoCity HospitalComment on above:Result Comment: Satisfactory for evaluation. No endocervical component is identified. Performed at: WBPerformed By: #### [id number] #### [facility] [address] [place] [address] [address] Beth GutierrezXR Hand Complete Left*on 39-17-5865PA Hand Complete Left*HISTORY: Pain x 2 weeks FINDINGS: Bone mineralization is normal for this age. No acute fracture, dislocation or significant arthritic changes are seen. No significant joint space effusion is present. Soft tissues are without abnormal calcifications or radiopaque foreign body. No active erosive changes are identified. IMPRESSION: Minimal arthritis, no erosive changes or fracture. Report reported and signed by Bernard Cheng on 05/20/[address] [facility] Baseball Inspector Vital Signs Date TimeVital SignValuePerforming PqlqvrhqwXrkcgymu50-80-9881 15:39-0400Body ybwsjz617.1 George Wills MD Work Phone: [facility] ServicesSuzkzlcrdu23-42-3443 15:39-0400Body mass index (BMI) [Ratio]27.29 kg/q4YixtmeGurvinder Wills MD Work Phone: [facility] ServicesHgswoxydsr88-68-6391 15:39-0400Body mueudv84.39 kgGurvinder Wills MD Work Phone: [facility] ServicesSrykfkcsvi44-56-1105 16:02-0400Body mass index (BMI) [Ratio]27.79 kg/t2NncycbsdToña Dykes NP Work Phone: [facility] ServicesAmdydpvcoo15-90-0053 16:02-0400Body .75 kgToña Dykes NP Work Phone: [facility] ServicesXgeihzfexg08-12-9997 16:02-0400Diastolic blood wuodiwoc24 mm[Hg]Toña Dykes [employer] BU[employer]DER Work Phone: [facility] ServicesBororndjfu37-91-6741 16:02-0400Systolic blood wstrsbib275 mm[Hg]Toña Dykes NP Work Phone: [facility] ServicesQfkovadajc13-78-7507 13:29-0400Body mass index (BMI) [Ratio]27.79 kg/z5Llcct Adelaide DO Work Phone: [facility] ServicesBsrnfqqxlz74-53-5374 13:29-0400Body nvxqoy86.75 kgCorey Adelaide DO Work Phone: [facility] ServicesXcyhpjgjsq66-50-0524 13:29-0400Diastolic blood aevcfugy27 mm[Hg]Yeyo Adelaide DO Work Phone: [facility] ServicesExnwyorxky84-85-6706 13:29-0400Systolic blood mm[Hg]Yeyo Adelaide DO Work Phone: [facility] ServicesIomnxwovqc86-13-4216 11:34-0400Body mass index (BMI) [Ratio]27.62 kg/x6Lgnmt Adelaide DO Work Phone: [facility] ServicesGcqbismxvv90-64-4590 11:34-0400Body dlwonj07.3 kg Yeyo Adelaide DO Work Phone: [facility] ServicesRauwciagyr73-18-0240 11:34-0400Diastolic blood budqnqkj75 mm[Hg]Yeyo Adelaide DO Work Phone: [facility] ServicesNvdihmcnpz51-67-7796 11:34-0400Systolic blood mlxrqygs621 mm[Hg]Yeyo Adelaide DO Work Phone: [facility] Healthcare Encounters Encounter DateEncounter TypeCare ProviderFacilityStart: 05-14-2025 End: 02-76-6225Ysndex OnlyGurvinder Wills MD Work Phone: [phone] MedicineStart: 04-13-2025 End: 35-59-6972olmwkpxveyMHZZMP J HEMEYERNot AvailableStart: 04-13-2025 End: 73-50-8872Mevcyt outpatient visit 25 minutesGurvinder Wills MD Work Phone: [facility] MedicineComment on above:Chronic fatigue (Primary Dx); RLS (restless legs syndrome); Sick-euthyroid syndrome; Abnormal thyroid exam; Arthralgia, unspecified joint; Complaint of paresthesia; Overweight (BMI 25.0-29.9)Start: 04-13-2025 End: 80-57-2680Xtfodx Bhupinder Wills MD Work Phone: [facility] MedicineStart: 04-13-2025 End: 92-02-2852Ybkhlc Bhupinder Wills MD Work Phone: [facility] MedicineStart: 01-02-2025 End: 42-50-8183Syjeot follow up visit related to original Lazarus Dykes [employer] BU[employer]DER Work Phone: [facility] BCP OBComment on above:Postop checkStart: 01-02-2025 End: 11-51-5564nobcadoisuRLMCEWON EBERLYNot AvailableStart: 01-02-2025 End: 79-60-6449Qndkov flowsLázaro Dykes [employer] BUILDER Work Phone: [facility] BCP OBStart: 01-02-2025 End: 97-28-1929Imcagr flowsLázaro Dykes [employer] BUILDER Work Phone: [facility] BCP OBStart: 12-23-2024 End: 28-71-3124Hyhfpoitj Result EncounterGeneric External Data ProviderNOMS External Department UnsolicitedStart: 12-23-2024 End: 51-75-5132Tjrtmatqp Result EncounterGeneric External Data ProviderNOMS External Department UnsolicitedStart: 12-23-2024 End: 89-48-2650sazszjjggsOiaow FazioFacility:[facility] Start: 12-23-2024 End: 18-34-9906Iiinuqom ReferredGurvinder Wills MD Work Phone: [facility] Path Spec Neal HospStart: 11-30-2024 End: 57-83-9433Sidfvg flowsheetCorey Adelaide DO Work Phone: [facility] BCP OBStart: 11-30-2024 End: 86-09-0344Ftkhmb flowsheetCorey Adelaide DO Work Phone: n[facility] BCP OBStart: 11-30-2024 End: 00-16-9492Xiekltihk Result EncounterGeneric External Data ProviderNORI External Department UnsolicitedStart: 11-30-2024 End: 21-95-8679Vfmscpv encounter procedureCorey Adelaide DO Work Phone: noms HealthcareStart: 11-30-2024 End: 95-27-5522Rdddybvi preventive med est patient 18-39 yrsCorey Adelaide DO Work Phone: [facility] BCP OBComment on above:Well woman exam with routine gynecological exam; Pre-op examination; Request for sterilization; Family history of breast cancer in mother; Encounter for screening mammogram for malignant neoplasm of breastStart: 11-30-2024 End: 14-56-6468Iirufzvwezdna examination doneCorey AdelaideEashmart Work Phone: noms HealthcareStart: 11-30-2024 End: 28-54-9065esrvjtlpwbZRVEA FAZIONot AvailableStart: 05-10-2024 End: 53-60-1998Pqtdeo outpatient visit 10 minutesCoremorris DelarosaFive Below Work Phone: [facility] BCP OBComment on above:Pre-op examination; Request for sterilizationStart: 05-10-2024 End: 68-02-5918Dtximaeejoyhl examination doneCorey AdelaideEashmart Work Phone: noms HealthcareStart: 05-10-2024 End: 24-69-3679vziarqmqcaMGOIE FAZIONot AvailableStart: 32-83-3578ceigkdzbgs Fredis Weekscility:[facility] Hospitaltart: 12-22-2023 End: 85-36-2095Ljveejxna Alessia Wills MD Work Phone: [phone] NICUStart: 12-21-2023 End: 45-55-8807Jotqzwupy Alessia Wills MD Work Phone: [phone] [address] NICUStart: 12-18-2023 End: 52-19-5502Polyiuwvj EncounterEdharriet Wills MD Work Phone: [facility] 3E NICUStart: 12-15-2023 End: 50-49-4909Rcckpwwkc EncounterEdharriet Wills MD Work Phone: [facility] 3E NICUStart: 31-92-5308Ibleusyns EncounterEdharriet Wills MD Work Phone: [facility] 3E NICUStart: 39-14-1606Ihusisdwr EncounterEdharriet Wills MD Work Phone: [facility] 3E NICUStart: 45-54-6698Zkqufyqod EncounterEdharriet Wills MD Work Phone: [facility] 3E NICUStart: 66-91-4340Rvgtptdfc EncounterEdharriet Wills MD Work Phone: [facility] 3E NICUStart: 06-49-3606Lczpwmyde EncounterEdharriet Wills MD Work Phone: [facility] 3E NICUStart: 32-19-4117Emxyegodc EncounterEdahrriet Wills MD Work Phone: [facility] 3E NICUStart: 07-38-5081Cnubmegok EncounterEdharriet Wills MD Work Phone: [facility] 3W NICUStart: 36-47-4642Lpodkmlbd EncounterEdharriet Wills MD Work Phone: [facility] 3W NICUStart: 48-53-5223Pjhdaoacb EncounterEdharriet Wills MD Work Phone: [facility] 3W NICUStart: 17-02-8124Iqsuihcge EncounterEdharriet Wills MD Work Phone: [facility] 3W NICUStart: 80-98-9301Txdlhacmt Alessia Wills MD Work Phone: [facility] 3W NICUStart: 09-30-2023 End: 44-78-0151Zrwihafpr Result EncounterCorey Adelaide DO Work Phone: noms External Department UnsolicitedStart: 09-30-2023 End: 54-23-2673Qkhnewjok Result EncounterCorey Adelaide DO Work Phone: noms External Department UnsolicitedStart: 05-14-2022 End: 58-98-0561swtuvzkwgmHZ GURVINDER WILLSFacility:Z5Iybqc: 04-16-2022 End: 73-58-6299yferweglonKsibmy Jha Other [employer] Other Start: 41-58-9250Phpskzklq encounterAnupam [facility] PsychiatryStart: 03-05-2022 End: 76-42-2034hblkateaynXdscuc Jha Other [employer] Other Start: 66-27-0298Mwhftvbyh encounterAnupam [facility] PsychiatryStart: 09-30-2021 End: 76-27-7715bppatozenyFzxvxx Jha Other [employer] Other Start: 01-01-5300Asgqcdkfq encounterAnupam [facility] Procedures DateProcedureProcedure DetailPerforming ClinicianStart: 22-71-2275RDD CBC WITH AUTO DIFFCorey Adelaide DO Work Phone: Start: 05-67-6287Zhyxp test visual color cmprsn Bisi PEREZ Work Phone: Start: 16-45-6189PIS,APTIMA HPV,AGE GDLNNicole PEREZ Work Phone: Start: 30-05-7599Ntlxfnqmxec observation [Identifier] in Cervix by Cyto stainGeneric ProviderStart: 50-02-9226EC for multiple gestation limitedCorey Adelaide DO Work Phone: Start: 26-64-1780Chyzappcyjq observation [Identifier] in Cervix by Cyto Jude Wills MD Work Phone: Plan of Treatment DateCare ActivityDetailAuthorStart: 98-49-7600TYqM,Tdap and Td Vaccines (2 - Td or Tdap)DTaP,Tdap and Td Vaccines (2 - Td or Tdap)[facility] SystemStart: 53-03-3029Oovjwcsbd for malignant neoplasm of cervixNOMS HealthcareStart: 86-74-4392Pwianqhjh for malignant neoplasm of cervixNOMS HealthcareStart: 08-61-9315Gnlncmifv for malignant neoplasm of cervixPap SmearOhioHealth Van Wert Hospital SystemStart: 09-10-2025 End: 17-56-8602Y9, reverseT3, reverse Lab Routine Chronic fatigue Expected: 09/10/2025 (Approximate), Expires: 04/13/2026NOMS HealthcareComment on above: Expected: 09/10/2025 (Approximate), Expires: 04/13/2026Start: 09-10-2025 End: 98-44-1557Tkjfrqaadjc [Units/volume] in Serum or PlasmaTSH Lab Routine Chronic fatigue Expected: 09/10/2025 (Approximate), Expires: 04/13/2026NOMS HealthcareComment on above:Expected: 09/10/2025 (Approximate), Expires: 04/13/2026Start: 09-10-2025 End: 84-10-8137Azvdvfaxx (T4) free [Mass/volume] in Serum or PlasmaT4, free Lab Routine Chronic fatigue Expected: 09/10/2025 (Approximate), Expires: 04/13/2026 N[facility] HealthcareComment on above:Expected: 09/10/2025 (Approximate), Expires: 04/13/2026Start: 09-10-2025 End: 83-96-0885Ngmegwakojywwqnb (T3) [Mass/volume] in Serum or PlasmaT3 Lab Routine Chronic fatigue Expected: 09/10/2025 (Approximate), Expires: 04/13/2026 NOM HealthcareComment on above:Expected: 09/10/2025 (Approximate), Expires: 04/13/2026Start: 09-10-2025 End: 91-18-3117Iqjjbppompldgdab (T3) Free [Mass/volume] in Serum or PlasmaT3, free Lab Routine Chronic fatigue Expected: 09/10/2025 (Approximate), Expires: 04/13/2026[facility]S HealthcareComment on above:Expected: 09/10/2025 (Approximate), Expires: 04/13/2026Start: 35-70-5571PQFEU-19 Vaccine ()COVID- 19 Vaccine ()[facility] HealthcareStart: 22-36-5855Gbkjwjwhi vaccinationVALLEY VIEW MEDICAL [facility]ENTER HealthcareStart: 04-13-2025 End: 82-93-8242Xfzvuczqrjpai metabolic 2000 panel - Serum or PlasmaComprehensive metabolic panel Lab Routine Chronic fatigue Arthralgia, unspecified joint Complaint of paresthesia Expected: 04/13/2025 (Approximate), Expires: 04/13/2026 [facility] Work Phone: Comment on above:Expected: 04/13/2025 (Approximate), Expires: 04/13/2026Start: 04-13-2025 End: 64-38-4822Tfywnbbqjiu sedimentation rateSedimentation rate, automated Lab Routine Arthralgia, unspecified joint Expected: 04/13/2025 (Approximate), Expires: 04/13/2026N[facility] HealthcareComment on above:Expected: 04/13/2025 (Approximate), Expires: 04/13/2026Start: 04-13-2025 End: 57-60-6752Tcon and Iron binding capacity panel - Serum or PlasmaIron and TIBC Lab Routine Chronic fatigue Expected: 04/13/2025 (Approximate), Expires: 04/13/2026[facility] HealthcareComment on above:Expected: 04/13/2025 (Approximate), Expires: 04/13/2026Start: 04-13-2025 End: 91-24-5234Jrrxn 1996 panel - Serum or PlasmaLipid panel Lab Routine Chronic fatigue Expected: 04/13/2025 (Approximate), Expires: 04/13/2026[facility] Healthcare Comment on above:Expected: 04/13/2025 (Approximate), Expires: 04/13/2026Start: 04-13-2025 End: 16-77-1369Aycupwu Ab [Titer] in Serum by ImmunofluorescenceANA Lab Routine Arthralgia, unspecified joint Expected: 04/13/2025 (Approximate), Expires: 04/13/2026[facility] HealthcareComment on above:Expected: 04/13/2025 (Approximate), Expires: 04/13/2026Start: 04-13-2025 End: 28-81-7666Agvvucaihv factor [Units/volume] in Serum or PlasmaRheumatoid factor Lab Routine Arthralgia, unspecified joint Expected: 04/13/2025 (Approximate), Expires: 04/13/2026[facility] HealthcareComment on above:Expected: 04/13/2025 (Approximate), Expires: 04/13/2026Start: 04-13-2025 End: 12-41-9799Ittrtldzxnrtc AntibodyThyroglobulin Antibody Lab Routine Chronic fatigue Abnormal thyroid exam Expected: 04/13/2025 (Approximate), Expires: 04/13/2026[facility] HealthcareComment on above:Expected: 04/13/2025 (Approximate), Expires: 04/13/2026Start: 04-13-2025 End: 61-63-2813Qrjlevz peroxidase antibodyThyroid peroxidase antibody Lab Routine Chronic fatigue Abnormal thyroid exam Expected: 04/13/2025 ( Approximate), Expires: 04/13/2026[facility] HealthcareComment on above:Expected: 04/13/2025 (Approximate), Expires: 04/13/2026Start: 04-13-2025 End: 28-70-9631Soybi [Mass/volume] in Serum or PlasmaUric acid Lab Routine Arthralgia, unspecified joint Expected: 04/13/2025 (Approximate), Expires: 03/2026[facility] HealthcareComment on above:Expected: 04/13/2025 (Approximate), Expires: 04/13/2026Start: 01-02-2025 End: 18-24-2043Tzgziaz encounter procedureNOMS BCP OBComment on above:Arrived Start: 12-29-2024 End: 10-06-6426Xrpxpwc encounter rxylqwtrj95/24/2025 2:30 PM EDT Office Visit [facility] [address] [place] [id number] Nicole Goldberg PA [address] [place] [address] [facility] BCP OBStart: 11-30-2024 End: 38-08-9225RI Breast - bilateral ScreeningBilateral screening mammogram Imaging Routine Family history of breast cancer in mother Encounter for screening mammogram for malignant neoplasm of breast Expected: 11/30/2024 (Approximate), Expires:01/30/2026[facility] Work Phone: comment on above:Expected: 11/30/2024 (Approximate), Expires: 01/30/2026Start: 11-30-2024 End: 01-86-1874Jnrkubc encounter sllcrfqeg81/26/2025 1:20 PM EDT Office Visit [facility] [address] [place] [address] Yeyo Bryson, [address] [place] [address] ArrivedNOMS BCP OBComment on above:ArrivedStart: 29-02-3247Xsrmdya ScreeningTobacco ScreeningProKnox Community Hospitalca Health SystemStart: 84-61-2395Giorw BMI ScreeningAdult BMI ScreeningProKnox Community Hospitalca Health SystemStart: 08-17-2024 End: 36-26-2704Ezwlvju encounter mtjriyfzt10/11/2024 11:00 AM EST Office Visit [facility] [address] [place] [phone] Yeyo Bryson, DO [address] [place] [address] [place] [address] [facility] BCP OBStart: 50-90-8182Tfippqsnc vaccinationVALLEY VIEW MEDICAL CENTER HealthcareStart: 59-26-5210GDbD/Tdap/Td Vaccines (2 - Td or Tdap)DTaP/Tdap/Td Vaccines (2 - Td or Tdap)[facility] HealthcareStart: 25-20-1444Qudtbzzin vaccination Influenza VaccineAtrium Health Wake Forest Baptisttart: 88-05-0048CWV Vaccines (1 - 3- dose SCDM series)HPV Vaccines (1 - 3-dose SCDM series)[facility] HealthcareStart: 67-37-6791Aldpomzej B Vaccines (1 of 3 - 19+ 3-dose series)Hepatitis B Vaccines (1 of 3 - 19+ 3-dose series)[facility] ServicesStart: 46-51-9672Yllpf BMI Follow Up PlanAdult BMI Follow Up PlanAtrium Health Wake Forest Baptisttart: 60-95-3736Utzjitp of varicella vaccinationVaricella Vaccines (1 of 2 - 13+ 2-dose series)[facility] ServicesStart: 16-38-6902Kifthnyeva ScreeningDepression ScreeningAtrium Health Wake Forest Baptisttart: 70-79-1902QON Vaccines (1 of 1 - Standard series)MMR Vaccines (1 of 1 - Standard series)[facility] ServicesCytology Cervical or vaginal smear or scraping studyPap Smear Pathology and Cytology Routine Well woman exam with routine gynecological exam Ordered: 11/30/2024[facility] Work Phone: comment on above:Ordered: 11/30/2024Human papilloma virus DNA [Presence] in Unspecified specimen by Probe with amplificationHPV DNA probe, amplified Microbiology Routine Well woman exam with routine gynecological exam Ordered: 11/30/2024[facility] ServicesComment on above:Ordered: 11/30/2024 Immunizations Immunization DateImmunizationNotesCare PtrgpltvAtenbogi92-68-2609imwldfu toxoid, reduced diphtheria toxoid, and acellular pertussis vaccine, adsorbedGurvinder Wills MD Work Phone: [facility] CenterNE[facility]ATED: Highlighted row has not occurred!81-50-2714mgxvtipwp, injectable, quadrivalent, preservative free Gurvinder Wills MD Work Phone: [facility] Payers DatePayer CategoryPayerPolicy [id number]-atg 14-06-9791Atetynh Care HMO (unspecified)[id number] 38-56-2967Rctlkki Health [id number] [id number] [id number] 2.16.840.1.580831.3.57[id number] 2.16.840.1.179470.3.57[id number] 2.16.840.1.491882.3.579.2.054155-86-3791Ykgdxkr Health [id number] [id number] [id number] [id number] Social History DateTypeDetailFacilityUnknown if ever smokedNort [employer] Other Start: 07-24-2023 End: 08-89-7833Qtf Assigned At BirthNORI HealthcareStart: 03-05-2022 End: 09-81-6376Qychqvc smoking status NHISNever smoked tobaccoVALLEY VIEW MEDICAL [facility]ENTER Healthcare Start: 09-09-2023 End: 02-89-1421Yrcimwgwd beverage intakeCurrent drinker of alcohol (finding)[facility] HealthcareStart: 07-24-2023 End: 11-13-9895Eldveey of Social functionNOMS HealthcareHow often to you have a drink containing alcohol?Monthly or lessNOMS HealthcareHow many standard drinks containing alcohol do you have on a typical day?1 or 2NOMS HealthcareHow often do you have 6 or more drinks on 1 occasion?Less than monthlyNOMS Healthcare Start: 63-43-2772Abgwdyrus29ORXH HealthcareStart: 50-52-2396Hqwlbpr Comment Alcohol: 1 or 2 drinks on a typical day/monthly or less Caffeine: 1-2 cups/day [facility] ServicesStart: 15-73-4337But assigned at birthNot on fileProCleveland Clinic Foundation SystemStart: 37-45-7136Lhfuvuz use and exposureSmokeless tobacco non-user [facility] SystemStart: 88-72-1480Biqfrcm intakeLifetime non-drinker (finding)[facility] SystemStart: 02-62-5951PzeatvdpvJwimwseYwzLasyke Health SystemStart: 53-59-1346BkqLeulwh (finding)[facility] Hospitaltart: 85-13-0423Vnl Assigned At [facility] Functional Status CfuoLnopepkpgnPjefpzIywrywbc17-63-9902Xqktuyw Health Questionnaire 2 item (PHQ- 2) [Reported][facility] Clinical Notes 11-10-2023 to 04-13-2025 Note Date & ElgpYzfkQzzexgqp73-11-5344 History of Present illness Narrative* Gurvinder Wills MD - 04/13/2025 3:30 PM EDT Images from the original note were not included. Patient ID: Vicky Ceja is a 39 y.o. female who presents for: Pt states she has had pain and tingling in her right hand for weeks but they felt like they were falling asleep for over 6 months. She states she cannot open jars, her fingers feels like they are locking up and she has pain in the elbow as well. On the right side it affects her middle three fingersthe most. She states within the last few days her left side started doing the same thing but not assevere. The left elbow does not have pain. Review of Systems She is also complaining of what she considers to be excessive fatigue. It is making it difficult for her to get through the work day and take care of her family. She is also noting at night she has to move her legs and they are uncomfortable. Upon further questioning some of this could be restless leg syndrome but she is also noticing then that the joints in her legs hurt some also. We did discuss and she is still able to work although finds it difficult. She has not been droppingany instruments or any other specific items at home. Objective The patient is pleasant and in no acute distress The patient has good eye contact and clear speech Bilateral upper arms skin is intact without increased calor or rubor. There is no specific swellingof the extremities especially noting the joints. She does have some mild tenosynovitis noted at thePIP joints specifically on both hands. No nodules. 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 Phalen's and Tinel's testing of the wrist are negative. Tinel's testing at the ulnar notch is negative. So render position is negative for loss of pulse and did not reproduce her symptoms. She does have /rounded shoulders. Her neck is somewhat forward protruding. Mild decreased range of motion but none of these reproduced her symptoms. She does have some hypertonicity to the paraspinalmusculature that is nontender. The neck has shotty anterior cervical adenopathy. No masses. The thyroid is at the upper limits of normal in his somewhat indurated and texture. No specific nodules or masses were noted. It is nontender. 01/02/2025 4:02 PM 11/30/2024 1:29 PM 05/10/2024 11:34 AM 12/28/2023 9:39 AM Vitals BMI 27.79 kg/m2 27.79 kg/m2 27.62 kg/m2 29.12 kg/m2 BSA (m2) 1.86 m2 1.86 m2 1.86 m2 1.91 m2 Systolic 120 110 118 Diastolic 74 76 72 Weight (lb) 167 167 166 175 Visit Report Report Report Report Allergies Allergen Reactions Amoxicillin Unknown Current Outpatient Medications on File Prior to Visit Medication Sig Dispense Refill FLUoxetine (PROzac) 40 MG capsule Take 1 capsule (40 mg) by mouth Daily 30 capsule 3 MV-Min-Fe Fum-FA-DHA ( 1 PO) Take by mouth. No current facility-administered medications on file prior to visit. 1. Chronic fatigue (Primary) This is a new, chronic problem that is stable, complex in nature with moderate decision making. I discussed with the patient or their guest services representative, their fatigue issues. We discussed how this is almost always chronic and by definition must have been in place for 6 weeks in order to be considered chronic fatigue. We discussed how this is almost always a multifactorial problem. We discussed that the patient willalmost certainly need to make lifestyle changes including diet, sleep, exercise, and stress management. We further discussed how we will search for underlying disease processes and then support or treat them as appropriate. We discussed how we can frequently improve the symptoms, but may not be able to completely cure or resolve the issue. The patient was given a chance to ask questions and all questions were answered. - Comprehensive metabolic panel; Future - Lipid panel; Future - T3; Future - T3, reverse; Future - T3, free; Future - T4, free; Future - TSH; Future - Thyroglobulin Antibody; Future - Thyroid peroxidase antibody; Future - Iron and TIBC; Future - Comprehensive metabolic panel - Lipid panel - T3 - T3, reverse - T3, free - T4, free - TSH - Thyroglobulin Antibody - Thyroid peroxidase antibody - Iron and TIBC 2. RLS (restless legs syndrome) Labs as above, and if no causative issue found, consider treatment. 3. Sick-euthyroid syndrome She has a history this and was previously treated. She was able to get off the medication with her lifestyle changes. I am suspicious this has returned. 4. Abnormal thyroid exam With the induration we should probably check for autoimmune disease. - Thyroglobulin Antibody; Future - Thyroid peroxidase antibody; Future - Thyroglobulin Antibody - Thyroid peroxidase antibody 5. Arthralgia, unspecified joint Most of her complaints seem to be in the upper extremities but she does have some in the lower extremities which would make me consider the possibility of systemic problems. - Comprehensive metabolic panel; Future - Sedimentation rate, automated; Future - Uric acid; Future - POLLO; Future - Rheumatoid factor; Future - Comprehensive metabolic panel - Sedimentation rate, automated - Uric acid - POLLO - Rheumatoid factor 6. Complaint of paresthesia For now we are going to proceed with the rest of the evaluation. Her paresthesia does not fit a very specific dermatome. We will check for the possibility of a calcium abnormality and/or hyperparathyroidism. - Comprehensive metabolic panel; Future - Comprehensive metabolic panel 7. Overweight (BMI 25.0-29.9) Please Note: Portions of this chart may have been created using voice recognition software. Occasionally a wrong-word or sound-like substitutions may have occurred due to inherent limitations of the voice recognition software. Please read the chart carefully and recognize, using context, where the substitutions may have occurred. documented in this encounterHeartland Behavioral Health [id number] History of Present illness Narrative* Toña Dykes, DO - 01/02/2025 3:50 PM EDT Reason for Appointment: Patient ID: Vicky Ceja is a 39 y.o. female who presents for Post-op Visit Patient presents today for 1 Week Post Op Follow Up appointment. MEDICATIONS Current Outpatient Medications Medication Instructions FLUoxetine [...] sick syndrome) History of [place] [facility] [place]), [facility] [place] (09/2018) Mixed obsessional [...] Procedure Laterality Date SECTION, LOW TRANSVERSE 11/07/2023 SALPINGECTOMY Bilateral 12/23/2024 Robotic assisted REVIEW OF SYSTEMS Review of Systems: Review [...] nursing note reviewed. Exam conducted with a apiarist present. Vitals: Estimated body mass index is 27.79 kg/m as calculated from the following: Height as of 09/10/21: 5' 5 . Weight as of this encounter: 167 lb. BP: 120/74 No LMP recorded. ASSESSMENT & PLAN ICD-10-CM 1. Postop check Z09 Post Op Follow Up: Patient presents today for a postop follow up after having a Bilateral Laparoscopic Salpingectomy performed at [facility] with Dr. Bryson. Patient is healing well and shows no signs or symptoms of infection. Follow Up: Patient is to return to the office for annual exam unless needed otherwise. Documented by Toña Dykes NP on behalf of: Toña Dykes NP documented in this encounterHeartland Behavioral Health [id number] History of Present illness Narrative* Myra Kamara LPN - 11/30/2024 1:20 PM EDT Reason for Appointment: Patient ID: Vicky Ceja is a 39 y.o. female who presents for Well Women Visit and Pre-op Visit Patient presents today for Pre Op/Annual appointment. Patient is scheduled to undergo Da Bony assisted Bilateral Laparoscopic Salpingectomy on 12/23/[address] Bryson at [facility]. MEDICATIONS Current Outpatient Medications Medication Instructions [...] disorder without prior episode (HCC) (CMS/HCC) Depression ([facility]/HCC) Disorder of initiating and maintaining sleep ESS (euthyroid sick syndrome) History of psychiatric hospitalization Mixed obsessional thoughts and acts (CMS/HCC) Moderate episode of recurrent major depressive disorder (CMS/HCC) OCD (obsessive compulsive disorder) (CMS/HCC) PMDD (premenstrual dysphoric disorder) ([facility]/HCC) PTSD (post-traumatic stress disorder) (CMS/HCC) RLS (restless legs syndrome) Seasonal affective disorder (CMS/HCC) Severe episode of recurrent major depressive disorder, with psychotic features (HCC) (CMS/[facility]) HISTORY PAST MEDICAL HISTORY SOCIAL HISTORY Past Medical History: Diagnosis Date POLLO positive Anxiety Chronic fatigue Current moderate episode of major depressive disorder without prior episode (HCC) (CMS/HCC) Depression (CMS/HCC) Disorder of initiating and maintaining sleep ESS (euthyroid sick syndrome) History of psychiatric [place] [facility] [place]02/2021), [facility] [place] mental [facility] (09/2018) Mixed obsessional thoughts and acts (CMS/HCC) Moderate episode of recurrent major depressive disorder (CMS/HCC) OCD (obsessive compulsive disorder) (CMS/HCC) PMDD (premenstrual dysphoric disorder) (CMS/HCC) PTSD (post-traumatic stress disorder) (CMS/HCC) RLS (restless legs syndrome) Seasonal affective disorder (CMS/HCC) Severe episode of recurrent major depressive disorder, with psychotic features (HCC) ([facility]) Social History Tobacco Use Smoking status: Never [...] nursing note reviewed. Exam conducted with a apiarist present. Vitals: Estimated body mass index is [...] reviewed, and patient is to proceed to [facility] OR. Follow Up: Patient is to follow up between 1-2 weeks post operative to assess proper healing and recovery fromprocedure. Documented by Myra Kamara LPN on behalf of: Yeyo Bryson DO documented in this encounterHeartland Behavioral Health [id number] History of Present illness Narrative* Nereyda Millan - 05/10/2024 11:10 AM EDT Reason for Appointment: Patient ID: Vicky Ceja is a 38 y.o. female who presents for Pre-op Visit Patient presents today for Pre Op appointment. Patient is scheduled to undergo Da Bony assisted Bilateral Laparoscopic Salpingectomy on 06/03/[address] Bryson at [facility]. MEDICATIONS Current Outpatient Medications Medication Instructions [...] sick syndrome) History of psychiatric [place] [facility] [place]02/2021), [facility] [place] [facility] (09/2018) Mixed obsessional [...] nursing note reviewed. Exam conducted with a apiarist present. Vitals: Estimated body mass index is [...] Bony assisted Bilateral Laparoscopic Salpingectomy on . Surgicalconsents were signed, mmc was reviewed, and patient is to proceed to [facility] OR. Pt has had depression in the past- has taken prozac in the past. - pt denies suicidal and homicidal ideations. Pt will call when she desires. Follow Up: Patient is to follow up between 1-2 weeks post op to assess proper healing and recovery from procedure. Documented by Myra Kamara LPN on behalf of: nora Hayes documented in this encounterHeartland Behavioral Health [id number] Miscellaneous Notes* Note - Desiree Ocampo RN - 12/22/2023 1:27 PM EDT This note was copied from a baby's [...] for any other assistance. documented in this encounterRegional [facility] Center04-16-2024 Obstetrics Note* Note - Desiree Ocampo RN - 12/22/2023 1:27 PM EDT This note was copied from a baby's [...] to call out for any other assistance. [facility]04-15-2024 Miscellaneous Notes* Note - Sonia Barriga RN - 12/21/2023 1:30 PM EDT This note was copied from a baby's [...] can also be used to determine the needfor supplementation. Test weights should not be routine care for infants in the NICU and should be done in conjunction with a performance improvement consultant. Plan: Offer breast each feed when [...] Questions answered, encouragement given. documented in this encounterRegional Medical Center04-15-2024 Obstetrics Note* Note - Sonia Barriga RN - 12/21/2023 1:30 PM EDT This note was copied from a baby's [...] can also be used to determine the needfor supplementation. Test weights should not be routine care for infants in the NICU and should be done in conjunction with a performance improvement consultant. Plan: Offer breast each feed when [...] access to breast. Questions answered, encouragement given. [facility]04-[facility] Miscellaneous Notes* Note - Ximena Bartlett RN - 12/18/2023 7:30 PM EDT This note was copied from a baby's chart. Met with mother at bedside. States pumping is going well and no pain noted with pumping. Mother hasbeen latching and he is doing well at breast however he gets frustrated waiting for the letdown. Discussed pumping for a minute or two and then latching infant until he gets used to going to breast fully. Questions answered and support given. [facility]* Note - Ximena Bartlett RN - 12/18/2023 7:30 PM EDT This note was copied from a baby's chart. Met with mother at bedside. States pumping is going well and no pain noted with pumping. Mother hasbeen latching and he is doing well at breast however he gets frustrated waiting for the letdown. Discussed pumping for a minute or two and then latching infant until he gets used to going to breast fully. Questions answered and support given. [facility] Notes* Note - Sonia Barriga RN - 12/15/2023 1:15 PM EDT This note was copied from a baby's [...] Questions answered, encouragement given. [facility]s [facility]* Note - Sonia Barriga RN - 12/15/2023 1:15 PM EDT This note was copied from a baby's [...] access to breast. Questions answered, encouragement given. [facility] [id number] Miscellaneous Notes* Note - Ximena Bartlett RN - 12/08/2023 8:20 PM EDT This note was copied from a baby's chart. Met with father at bedside. He states pumping is going well for mom and she is getting good amounts. Encouraged to have her call and talk to a LC if she has any questions or concerns at [phone] [facility]st[facility]s [facility]* Note - Ximena Bartlett RN - 12/08/2023 8:20 PM EDT This note was copied from a baby's chart. Met with father at bedside. He states pumping is going well for mom and she is getting good amounts. Encouraged to have her call and talk to a LC if she has any questions or concerns at [phone] [facility]03-30-2024 Miscellaneous Notes* Note - Sonia Barriga RN - 12/05/2023 2:30 PM EDT This note was copied from a baby's [...] which your body responds to as a thre at. Inflammatory cells and fluids laguerre into the [...] Questions answered, encouragement given. [facility]s [facility]* Note - Sonia Barriga RN - 12/05/2023 2:30 PM EDT This note was copied from a baby's [...] which your body responds to as a thre at. Inflammatory cells and fluids laguerre into the [...] and underarm area. Questions answered, encouragement given. [facility] M[facility] Notes* Note - Desiree Ocampo RN - 12/01/2023 8:04 PM EDT This note was copied from a baby's chart. Met with mother at 's bedside. States that pumping continues to go well with stable supply and no pain or discomfort. No current questions or concerns, encouraged to call out for any other assistance. [facility] Obstetrics Note* Note - Desiree Ocampo RN - 12/01/2023 8:04 PM EDT This note was copied from a baby's chart. Met with mother at 's bedside. States that pumping continues to go well with stable supply and no pain or discomfort. No current questions or concerns, encouraged to call out for any other assistance. [facility] M[facility] Notes* Note - Desiree Ocampo RN - 11/28/2023 4:04 PM EDT This note was copied from a baby's chart. Met with mom at 's bedside. States that pumping continues to go well, she has stable supply and denies pain or discomfort. No questions or concerns, encouraged to call out for any other assistance. [facility] Obstetrics Note* Note - Desiree Ocampo RN - 11/28/2023 4:04 PM EDT This note was copied from a baby's chart. Met with mom at infant's bedside. States that pumping continues to go well, she has stable supply and denies pain or discomfort. No questions or concerns, encouraged to call out for any other assistance. [facility] M[facility] Notes* Note - Desiree Ocampo RN - 11/27/2023 12:52 PM EDT This note was copied from a baby's [...] can be normal, too! documented [facility] Obstetrics Note* Note - Desiree Ocampo RN - 11/27/2023 12:52 PM EDT This note was copied from a baby's [...] know that that can be normal, too! [facility] Miscellaneous Notes* Note - Desiree Ocampo RN - 11/21/2023 3:36 PM EDT This note was copied from a baby's chart. Met with mom at infant's bedside. States that pumping is going well with stable supply and denies pain or discomfort. She has been using a rental pump through the hospital's [employer] [facility] and is working with her insurance to see if she can get a different pump that she will be more comfortable with. No further questions or concerns, encouraged to call out for any other assistance. [facility] Obstetrics Note* Note - Desiree Ocampo RN - 11/21/2023 3:36 PM EDT This note was copied from a baby's chart. Met with mom at 's bedside. States that pumping is going well with stable supply and denies pain or discomfort. She has been using a rental pump through the [facility]'s [employer] [facility] and is working with her insurance to see if she can get a different pump that she will be more comfortable with. No further questions or concerns, encouraged to call out for any other assistance. [facility] M[facility] Notes* Note - Yuli Mcgraw RN - 11/17/2023 9:00 PM EDT This note was copied from a baby's chart. Met with mother at 's bedside. States pumping is going well without any pain or discomfort. States 28 mm flange feels better and blisters have improved. She is getting about 170 ml every three hours. Denies any questions or concerns at this time. Encouraged to call out with any assistance. Support given. [facility] Obstetrics Note* Note - Yuli Mcgraw RN - 11/17/2023 9:00 PM EDT This note was copied from a baby's chart. Met with mother at infant's bedside. States pumping is going well without any pain or discomfort. States 28 mm flange feels better and blisters have improved. She is getting about 170 ml every three hours. Denies any questions or concerns at this time. Encouraged to call out with any assistance. Support given. [facility] M[facility] Notes* Note - Yuliana Ledesma RN - 11/14/2023 2:15 PM EST This note was copied from a baby's chart. Met with mother at infant's bedside. Stated she will be staying at [facility] and had concerns she would not have access to a pump as her rental pump is at her home one hour away. Discussed how [facility] her with a hospital grade breast pump to her room upon request. Encouragedto reach out to if she has any issues and we can provide a pump. Questions answered and support given. [facility] Obstetrics Note* Note - Yuliana Ledesma RN - 11/14/2023 2:15 PM EST This note was copied from a baby's chart. Met with mother at 's bedside. Stated she will be staying at [facility] and had concerns she would not have access to a pump as her rental pump is at her home one hour away. Discussed how [facility] her with a hospital grade breast pump to her room upon request. Encouragedto reach out to if she has any issues and we can provide a pump. Questions answered and support given. [facility] M[facility] Notes* Note - Desiree Ocampo RN - 11/13/2023 2:13 PM EST This note was copied from a baby's chart. Met with mother at 's bedside. States that she continues pumping and has noticed steadily increasing supply. Questions about flange fit, she is unsure if her nipples are rubbing against that sides. She feels like as she pumps, nipple swell and becomes tight into the flange tubing. Experiencessome discomfort at the beginning of pumping before it evens out and becomes comfortable. Offered to come and measure nipples for flange sizing, will call out when ready. Encouraged to call out for any other assistance. [facility] Obstetrics Note* Note - Desiree Ocampo RN - 11/13/2023 2:13 PM EST This note was copied from a baby's chart. Met with mother at infant's bedside. States that she continues pumping and has noticed steadily increasing supply. Questions about flange fit, she is unsure if her nipples are rubbing against that sides. She feels like as she pumps, nipple swell and becomes tight into the flange tubing. Experiencessome discomfort at the beginning of pumping before it evens out and becomes comfortable. Offered to come and measure nipples for flange sizing, will call out when ready. Encouraged to call out for any other assistance. [facility] M[facility] Notes* Note - Desiree Ocampo RN - 11/12/2023 1:46 PM EST This note was copied from a baby's [...] for any other assistance. documented in [facility] Obstetrics Note* Note - Desiree Ocampo RN - 11/12/2023 1:46 PM EST This note was copied from a baby's chart. Met with mom at 's bedside. States that pumping is going well, she has continued to pump every three hours and her supply has doubled. She has begun using 30mm flange size and states this is a much more comfortable fit. No further questions or concerns, encouraged to call out for any other assistance. [facility]03-05-2024 Miscellaneous Notes* Note - Sonia Barriga RN - 11/10/2023 2:00 PM EST This note was copied from a baby's [...] baby demands. It is true that hormones drivethe production of very early breastmilk, called colostrum. However, in order to keep producing breastmilk, your baby needs to keep sucking from the breast. The overall level of milk production variesbased on the babys amount of sucking and [...] Questions answered, encouragement given. [facility] Obstetrics Note* Note - Sonia Barriga RN - 11/10/2023 2:00 PM EST This note was copied from a baby's [...] baby demands. It is true that hormones drivethe production of very early breastmilk, called colostrum. However, in order to keep producing breastmilk, your baby needs to keep sucking from the breast. The overall level of milk production variesbased on the babys amount of sucking and [...] pump and rental. Questions answered, encouragement given. [facility] CITYBIZLISTEvaluation noteNo InformationNortLankenau Medical Center TARGET BRAZIL Other Evaluation note* Diagnosis Pre-op examination Request for sterilization documented [facility] encounter [facility] HealthcareEvaluation note* Diagnosis Well woman exam with routine gynecological exam Routine gynecological examination Pre-op examination Request for sterilization Family history of breast cancer in mother Family history of malignant neoplasm of breast Encounter for screening mammogram for malignant neoplasm of breast documented in this encounter [facility] HealthcareEvaluation noteNo assessment information availableChillicothe [facility] Work Phone: Evaluation note* Diagnosis Postop check Follow-up examination, following unspecified surgery documented in this encounter [facility] HealthcareEvaluation note* Diagnosis Chronic fatigue- Primary Other malaise and fatigue RLS (restless legs syndrome) Restless legs syndrome (RLS) Sick-euthyroid syndrome Euthyroid sick syndrome Abnormal thyroid exam Arthralgia, unspecified joint Complaint of paresthesia Overweight (BMI 25.0-29.9) Overweight documented in this encounter [facility] HealthcareHistory general Narrative - Reported* Type Description Date Medical History [facility] [employer] Other InstructionsNot on filedocumented in this encounter [facility] Synack SystemInstructionsNot on filedocumented in this encounter [facility] [employer] Summary Purpose Family History Relationship Condition Age at Onset Recorded Date/T stacy Not Specified No pertinent family history Unknown grandparentSuicideUnknowngrandparentParkinson's diseaseUnknowngrandparent Malignant neoplasmUnknownmotherMalignant neoplasmUnknown Advance Directives Code StatusDate ActivatedDate InactivatedCommentsFull Code10/11/2023 6:04 AM 11/10/2023 5:01 PMDate ActivatedDate InactivatedComments10/11/2023 6:04 AM11/10/2023 5:01 PM Advance Directive Response Recorded Date/ Time Advance Directives No October 05, 2018 5:13pm Additional Source Comments REASON FOR VISIT (unrecogniz ed section and content) ReasonCommentsPre-op VisitReasonCommentsWell Women VisitPre-op VisitReason CommentsPost-op VisitReasonCommentshand issues INFORMATION SOURCE (unrecogn ized section and content) DATE CREATED AUTHOR 05/20/2022 [facility] DATE CREATED AUTHOR AUTHOR'S ORGANIZ ATION 05/21/2022 [facility] Baseball Inspector DATE CREATED AUTHOR AUTHOR'S ORGANIZ ATION 12/26/2024 [facility] DATE CREATED AUTHOR AUTHOR'S ORGANIZ ATION 04/16/2025 [facility] EPIC DATE CREATED AUTHOR AUTHOR'S ORGANIZ ATION 05/15/2025 [facility] Care Teams (unrecognized sec tion and content) Team MemberRelationshipSpecialtyStart DateEnd Date Gurvinder Wills MD [address] [place] [address] (Fax) [facility] - [facility]01/13/23Team MemberRelationshipSpecialtyStart DateEnd Date Gurvinder Wills MD [address] [place] [address] (Fax) [facility] - [facility]10/12/23Team MemberRelationshipSpecialtyStart DateEnd Date Gurvinder Wills MD [address] [place] [address] (Fax) [facility] - [facility]10/12/23Team MemberRelationshipSpecialtyStart DateEnd Date Gurvinder Wills MD [address] [place] [address] (Fax) [facility] - [facility]01/13/23Team MemberRelationshipSpecialtyStart DateEnd Date Gurvinder Wills MD [address] [place] [address] (Fax) PCP - GeneralFamily Medicine01/13/23Team MemberRelationshipSpecialtyStart DateEnd Date Gurvinder Wills MD [address] [facility] [address] [place] [address] (Fax) PCP - GeneralFamily Medicine01/13/23 Team Status: Active Member Role Status Dates Gurvinder Wills MD Primary Care Provider Active Team Status: Inactive Member Role Status Dates Gurvinder Wills MD Primary Care Provider Active Start: December 23, 2024 End: December 23harleen Bryson DOAttending ProviderActiveStart: December 23, 2024 End: December 23, 2024Team MemberRelationshipSpecialtyStart DateEnd Date Gurvinder Wills MD [address] [facility] [address] [place] [address] (Fax) PCP - GeneralFamily Medicine01/13/23Team MemberRelationshipSpecialtyStart DateEnd Date Gurvinder Wills MD [address] [facility] [address] [facility] [place] [address] (Fax) PCP - GeneralFamily Medicine01/13/23Team MemberRelationshipSpecialtyStart DateEnd Date Gurvinder Wills MD [address] [place] [address] (Fax) PCP - GeneralFamily Medicine01/13/23Team MemberRelationshipSpecialtyStart DateEnd Date Gurvinder Wills MD [address] [facility] [place] [address] (Fax) PCP - GeneralFamily Medicine01/13/23Team MemberRelationshipSpecialtyStart DateEnd Date Gurvinder Wills MD [address] [facility] [address] [place] [address] PCP - GeneralFamily Medicine01/13/23 Goals (unrecognized section and content) Goals may be documented in a n alternate section FOR RECORDS PERTAINING TO PATIENTS WHO ARE [...] BE BASED ON THE PRIMARY CLINICAL RECORDS. [employer] [facility]. provides no warranty or guarantee of the accuracy or completeness of information in this document.
--- OUTSIDE RECORDS SUMMARY | 2025-08-14 05:16 | XMS_ITS | Clinical Summary ---
Author Organization [employer] tem Address [id number] [place] [address] Care Team Providers Care Forest Fire Prevention Manager Name Role Phone Gurvinder Romo MD Primary Care Provider Allergies Active AllergyReactionsCriticalityNoted HyaeNsttlcxeFxfetivcadk63/04/2024 Medications MedicationSigDispense QuantityRefillsLast FilledStart DateEnd DateStatus acetaminophen (TYLENOL EXTRA STRENGTH) 500 mg tablet Take 2 tablets (1,000 mg total) by mouth every 8 (eight) hours. 30 tablet 11/10/2023ctive docusate sodium (COLACE) 100 mg capsule Indications:constipationTake 1 capsule (100 mg total) by mouth daily as needed for constipation Indications: constipation. 60 capsule 11/10/2023ctive ibuprofen (MOTRIN) 800 mg tablet Take 1 tablet (800 mg total) by mouth every 8 (eight) hours. 30 tablet 11/10/2023ctive Immunizations ImmunizationAdministration DatesNext YhdBfxk5910/20/2023 Social History Tobacco UseTypesPacks/DayYears UsedDateSmoking Tobacco: NeverSmokeless Tobacco: Never Tobacco Cessation:Counseling Given: Not Answered Alcohol UseStandard Drinks/WeekCommentsNever0 (1 standard drink = 0.6 oz pure alcohol)ChildcareAnswerDate DotnqemwJrondufgjSikkysr62/10/2019EmploymentAnswer Date FzkjhaikHhxavtnmspPolbyqa13/10/2019Hunger ScreeningAnswerDate Recorded Within the past 12 months we worried whether our food would run out before we got money to buy more.Never True11/10/2023Within the past 12 months the food we bought just didn't last and we didn't have money to get more.Never True 11/10/2023CommentsNoSex and Gender InformationValueDate RecordedSex Assigned at BirthNot on fileLegal YigDzznat09/04/2015 12:33 PM EDTGender IdentityNot on fileSexual OrientationNot on file Last Filed Vital Signs Vital SignReadingTime TakenCommentsBlood Dqrmsykp120/8611/10/2023 9:15 AM EST Iubsu9553/05/2024 9:15 AM BWWFfefuudyqcc44.6 ??C (97.9 ??F)11/10/2023 9:15 AM ESTRespiratory Yykl999811/10/2023 9:15 AM ESTOxygen Jdlnsehqgk53%11/08/2023 12:05 PM ESTInhaled Oxygen Concentration--Ycuqzg99.5 kg (184 lb)10/11/2023 5:17 AM EST Xbafkd299.1 cm (5' 5 )10/11/2023 5:17 AM ESTBody Mass Index30.62010/11/2023 5:17 AM EST Plan of Treatment Health MaintenanceDue DateLast DoneCommentsDepression Pfihdqeej09/15/1999Adult BMI Bgbzxsmec25/04//12/2023Tobacco Niiwmvbmq32/10/2023Influenza Wxdyrjc5805/08/2025Pap Smear07/27/480445/TaP,Tdap and Td Vaccines (2 - Td or Tdap)/ Medical Devices Not on file Insurance Advance Directives * Full Code (Latest Code Status on File) Date ActivatedDate InactivatedComments10/11/2023 6:04 AM11/10/2023 5:01 PM Care Teams Team MemberRelationshipSpecialtyStart DateEnd Date Gurvinder Romo MD PCP - GeneralFamily Medicine10/12/23
--- OUTSIDE RECORDS SUMMARY | 2025-08-14 05:16 | XMS_ITS | Clinical Summary ---
Author Organization [facility] Address [address] [place] [address], [address] [place] [address] Care Team Providers Care Water Resource Specialist Name Role Phone Unavailable Primary Care Provider Unavailabl e Social History Tobacco UseTypesPacks/DayYears UsedDateSmoking Tobacco: Never Assessed CommentsUnknownSex and Gender InformationValueDate RecordedSex Assigned at Not on fileLegal RplVzgtyy32/10/2013 10:11 PM EDTGender IdentityNot on file Sexual OrientationNot on file Plan of Treatment Not on file
--- OUTSIDE RECORDS SUMMARY | 2025-08-14 05:16 | XMS_ITS | Clinical Summary ---
Author Organization [facility] Address [address] [place] [address] Care Team Providers Care Attorney General Name Role Phone Gurvinder Romo MD Primary Care Provider Allergies Active AllergyReactionsCriticalityNoted MiumUbzcdyjkBqychfuplkqCbfidsr49/30/2014 Medications MedicationSigDispense QuantityRefillsLast FilledStart DateEnd DateStatus FLUoxetine (PROzac) 40 MG capsule Indications:Mood changesTake 1 capsule (40 mg) by mouth Daily 30 capsule 5Active Multiple Vitamin (multivitamin) tablet Take 1 tablet by mouth DailyActive Collagen-Vitamin C-Biotin (COLLAGEN PO) Take 1 Scoop by mouth DailyActive Active Problems ProblemNoted DateDiagnosed DateOverweight (BMI 25.0-29.9)04/13/2025Mixed obsessional thoughts and acts04/11/2025Disorder of initiating and maintaining sleep04/11/2025hronic krxxccd8204/11/2025Moderate episode of recurrent major depressive hxacpcou14/05/2025PMDD (premenstrual dysphoric disorder)04/11/2025 PTSD (post-traumatic stress disorder)04/11/2025RLS (restless legs syndrome) 04/11/2025Seasonal affective ugiemmpv07/05/2025Sick-euthyroid lihmmfgb22/05/2025 Encounters DateTypeDepartmentCare WsusWwecavbfron42/27/2025Telephone [facility] [address] [address] Gurvinder Romo MD from Last 3 Months Immunizations ImmunizationAdministration DatesNext AjgEsxp7710/20/2023 Family History Medical HistoryRelationNameCommentsNo Known ProblemsBrother2 brothers, healthyNo Known ProblemsDaughter 1No Known ProblemsDaughter 2Mental illnessMaternal Grandmothersevere depressionMental illnessMotherMental illnessPaternal Grandmotherdepression/qtauceqArqqzrbfAunjShzaiyOfjabfspLyhdnys1Xawtizrj 1Alive Daughter 2AliveFatherAliveMaternal GrandmotherMotherAlivePaternal Grandmother Social History Tobacco UseTypesPacks/DayYears UsedDateSmoking Tobacco: Never Tobacco Cessation:Counseling Given: Yes Alcohol UseStandard Drinks/WeekCommentsYes0 (1 standard drink = 0.6 oz pure alcohol)Alcohol: 1 or 2 drinks on a typical day/monthly or less Caffeine: 1-2 cups/dayAUDIT-CAnswerDate RecordedQ1: How often do you have a drink containing alcohol?Monthly or less07/24/2023Q2: How many drinks containing alcohol do you have on a typical day when you are drinking?1 or Q3: How often do you have six or more drinks on one occasion?Less than glqnzzp4107/24/2023HQ-2Answer Date RecordedPatient Health Questionnaire-2 Loyzr066EducationAnswerDate RecordedWhat is the highest level of school you have completed or the highest degree you have received?High school fcdlcaul50/23/2023CommentsNoSex and Gender InformationValueDate RecordedSex Assigned at BirthNot on fileLegal Sex Sogaeq3511/19/2022 7:11 PM EDTGender IdentityNot on fileSexual OrientationNot on file Last Filed Vital Signs Vital SignReadingTime TakenCommentsBlood Kbfkjdou817/7404 4:02 PM EDT Pulse--Temperature--Respiratory Rate--Oxygen Saturation--Inhaled Oxygen Concentration--Bctiho80.4 kg (164 lb)04/13/2025 3:39 PM GOEHjtkpw168.1 cm (5' 5 )04/13/2025 3:39 PM EDTBody Mass Index27.2908 3:39 PM EDT Plan of Treatment Health MaintenanceDue DateLast DoneCommentsCOVID-19 Vaccine ( season) 2025Influenza Vaccine (#1)5Cervical Cancer Uutvsysfn70/26/2030 HPV/Pqkfkd3011/30/2029Pap Smear, 3Pneumococcal Vaccine: Pediatrics (0 to 5 Years) and At-Risk Patients (6 to 64 Years)Aged Out No longer eligible based on patient's age to complete this topic Procedures Procedure NamePriorityDate/TimeAssociated DiagnosisCommentsPAP SMEARRoutine 11/30/2024 12:00 AM EDTfrom Last 3 Months or Most Recently Relevant to Health Maintenance Results * Pap Smear (11/30/2024 12:00 AM EDT)Specimen (Source)Anatomical Location / LateralityCollection Method / VolumeCollection TimeReceived TimeSwabCervical swab / Unknown Narrative Authorizing ProviderResult TypeResult StatusAmy Yusuf CARR CYTOLOGY ORDERABLES Final ResultPerforming OrganizationAddressCity/State/ZIP CodePhone Number EXTERNAL LAB from Last 3 Months or Most Recently Relevant to Health Maintenance Insurance Care Teams Team MemberRelationshipSpecialtyStart DateEnd Date Gurvinder Romo MD [address] [address] PCP - GeneralFamily Medicine01/13/23
--- OUTSIDE RECORDS SUMMARY | 2025-08-14 05:17 | XMS_ITS | Patient Health Record ---
Author Organization [facility] in [place] Address [address] [place] [address] Care Team Providers Care Manager Gyn Name Role Phone Gurvinder Romo MD Primary Care Provider Unavail able Wendy Collins Unavailable [phone] Reason For Referral No Information Encounters Encounter Location Date Provider Diagnosis [facility] [address] [place] [address] 01/24/2025 [facility] [id number] [place] [address]/22/2025 Wendy Dennis Plan Of Treatment No Information Insurance Providers Payer Name Payer Address Payer Phone Subscriber Number Group Number Insured Name Patient Relationship to Insured Coverage Start Date Coverage End Date O [address] [facility], [facility] [id number] Ben Bennettelf - patient is the insured
== END 2025-08-14 05:30 | disposition home or self-care (01) ==
PROVIDERS: Emergency Provider Emergency Medicine; PCP Family Medicine
DX: L30.9 Dermatitis, unspecified (principal); M35.3 Polymyalgia rheumatica; M25.50 Pain in unspecified joint
CPT/HCPCS: 80053; 82550; 82553; 83605; 83735; 83874; 84100; 99284